=== PATIENT | female | born 1985 | race Caucasian/White ===

== ENCOUNTER 2016-07-28 00:31 | Emergency (ER) | payer BC ==
[2016-07-28] MEDS ORDERED: NS 0.9% 1000 ML* 1,000 ML IV ONE (01:30)
[2016-07-28] MEDS ORDERED: Metoclopramide IV* 5 MG/ML 2 ML VIAL IV SLOW PU ONE (01:30)
[2016-07-28] MEDS ORDERED: Ketorolac INJ* 30 MG/ML 1 ML VIAL IV PUSH ONE (01:32)
--- NOTE | 2016-07-28 01:50 | ED ---
Headache - HPI Summary HPI Summary: 30 female presents complaining of a headache that has been going on for the past week and has progressively been getting worse. Patient was diagnosed with a sinus infection about a week ago and has been taking Augmentin twice a day. She has had some relief of congestion and has no longer had a fever. The headache has not been relieved by Tylenol. She was at work tonight where she was unable to continue her shift due to the pain. She describes the headache to be mainly behind her eyes "like her eyes are going to pop out" and also in the back lower part of her neck. Does not have a history of migraines. Is experiencing photosensitivity. Has been applying ice on her ice and forehead for some relief. Has also been experiencing nausea. Has not vomited however is unable to due to her fundoplication surgery due to GERD. Describes the pain to be throbbing. Denies slurred speech, weakness, numbness/tingling and vision complaints. - History Of Current Complaint Chief Complaint: EDHeadache Stated Complaint: SEVERE HEADACHE Time Seen by Provider: 07/28/16 01:21 Hx Obtained From: Patient Hx Last Menstrual Period: now Onset/Duration: Sudden Onset Currently Pain Is: Current Pain Scale(0-10)= - 7 Timing: Constant, Days Character: Throbbing, Pressure, Migraine Location of Headache: Frontal, Occipital Aggravating Factor: Bright Lights Allevating Factors: Nothing Associated Signs And Symptoms: Nausea, Sinus Pressure, Neck Pain - Allergies/Home Medications Allergies/Adverse Reactions: Allergies Allergy/AdvReac Type Severity Reaction Status Date / Time Gluten Meal Allergy GI Upset Verified 12/16/15 07:28 NSAIDs Allergy GI Upset Verified 12/16/15 07:28 PMH/Surg Hx/FS Hx/Imm Hx Endocrine/Hematology History: Denies: Hx Diabetes Cardiovascular History: Denies: Hx Congestive Heart Failure, Hx Hypertension, Other Cardiovascular Problems/Disorders Respiratory History: Denies: Other Respiratory Problems/Disorders GI History: Reports: Hx Gastroesophageal Reflux Disease - JETHRO, Hx Hiatal Hernia Denies: Other GI Disorders History: Denies: Hx Renal Disease Sensory History: Denies: Hx Contacts or Glasses, Hx Hearing Aid Opthamlomology History: Denies: Hx Contacts or Glasses Neurological History: Denies: Other Neuro Impairments/Disorders - Surgical History Surgery Procedure, Year, and Place: IUD/WRIST CYST REMOVED Hx Anesthesia Reactions: No Infectious Disease History: No Infectious Disease History: Denies: Traveled Outside the [place] in Last 30 Days - Family History Known Family History: Positive: None - Social History Alcohol Use: Occasionally Alcohol Amount: 2-3 PER WEEK Substance Use Type: Reports: None Smoking Status (MU): Never Smoked Tobacco Have You Smoked in the Last Year: No Review of Systems Constitutional: Negative Positive: Photophobia Positive: Nasal Discharge - sinus congestion Cardiovascular: Negative Respiratory: Negative Gastrointestinal: Negative Genitourinary: Negative Musculoskeletal: Negative Skin: Negative Positive: Rash Positive: Headache Positive: Anxious All Other Systems Reviewed And Are Negative: Yes Physical Exam Vital Signs On Initial Exam: Initial Vitals Temp Pulse Resp BP Pulse Ox 99.8 F 81 16 131/93 100 07/28/16 00:35 07/28/16 00:35 07/28/16 00:35 07/28/16 00:35 07/28/16 00:35 Appearance: Positive: Well-Appearing, Well-Nourished, Pain Distress - sitting on stretcher with lights off and icepack held to forehead. Skin: Positive: Warm, Dry Head/Face: Positive: Normal Head/Face Inspection Eyes: Positive: Normal, EOMI, KALEB, Conjunctiva Clear ENT: Positive: Hearing grossly normal, Pharynx normal, Nasal congestion, TMs normal Dental: Negative: Cervical Lymphadenopathy Neck: Positive: Supple, Nontender, No Lymphadenopathy Respiratory/Lung Sounds: Positive: Clear to Auscultation, Breath Sounds Present Cardiovascular: Positive: Normal, RRR, Pulses are Symmetrical in both Upper and Lower Extremities Abdomen Description: Positive: Nontender Musculoskeletal: Positive: Normal, Strength/ROM Intact Neurological: Positive: Normal, Sensory/Motor Intact, Alert, Oriented to Person Place, Time, CN Intact II-III, Reflexes Intact, NV Bundle Intact Distally, Normal Gait, Heel to Toe - normal, Finger to Nose - nomal, Speech Normal. Negative: Facial Droop, Slurred Speech Psychiatric: Positive: Anxious - appears anxious, shaking AVPU Assessment: Alert - [place] Coma Scale Coma Scale Total: 15 Diagnostics - Vital Signs Vital Signs Temp Pulse Resp BP Pulse Ox 07/28/16 00:35 99.8 F 81 16 131/93 100 - Laboratory Lab Statement: Any lab studies that have been ordered have been reviewed, and results considered in the medical decision making process. Headache Course/Dx - Course Course Of Treatment: patient will be given fluids, toradol IV and reglan to see if it helps with migraine. patient's pain improved. told to follow up with primary care doctor. pain management will be sent to take at home for next couple of days. advised to rest and take zofran for nausea as needed. Discussed patient care with Dr Hall, transfer of care. - Diagnoses Differential Diagnosis/HQI/PQRI: Migraine, Sinus Headache, Tension Headache, Viral Syndrome Provider Diagnoses: Migraine headache without aura, Sinus headache - Physician Notifications Discussed Care Of Patient With: Dr Hall Discharge - Discharge Plan Condition: Stable Disposition: HOME Prescriptions: Ondansetron ODT TAB* [Zofran Odt TAB*] 4 mg PO Q8H PRN #5 tab.odt PRN Reason: Nausea Patient Education Materials: Migraine Headache (ED), Sinusitis (ED) Forms: *Work Release Referrals: Vikas Mendiola BOILER ROOM OPERATOR [Primary Care Provider] - Additional Instructions: Take medication as prescribed to help with pain and nausea as needed. IF symptoms worsen or do not improve please return to ED. Follow up with primary care doctor is recommended.
[2016-07-28 05:14] VITALS: BP 120/79
== END 2016-07-28 05:14 | disposition home or self-care (01) ==
LOC: ED 00:31
DX: G43.009 Migraine without aura, not intractable, without status migrainosus (principal)
CPT/HCPCS: 96374; 96375; 99283; J1885; J2765

== ENCOUNTER 2017-04-04 17:10 | Inpatient (IN) | payer BC ==
[2017-04-04] MEDS ORDERED: Aspirin Low Dose CHEW TAB* 81 MG PO ONE (18:56)
--- NOTE | 2017-04-04 19:23 | RAD ---
INDICATION: Chest pain COMPARISON: May 03, 2015 TECHNIQUE: An AP portable view obtained at 1905 hours is submitted. FINDINGS: Bones/Soft Tissues: There are no acute bony findings. Cardiomediastinal: The cardiomediastinal silhouette is normal. Lungs: There are no infiltrates. There is no pneumothorax. Pleura: There are no pleural effusions. Other: None IMPRESSION: NO ACTIVE DISEASE.
[2017-04-04] MEDS ORDERED: Pantoprazole IV* 40 MG IV ONE (19:31)
[2017-04-04] MEDS ORDERED: Ondansetron INJ* 2 MG/ML VIAL IV ONE (19:31)
[2017-04-04] MEDS ORDERED: Morphine INJ* 4 MG/ML 1 ML CARPUJECT IV ONE ×2 (19:31→20:46)
[2017-04-04 19:37] LABS: Comments Flag Yes; Hematocrit 34 % (35-47); Hemoglobin 10.8 g/dl (12.0-16.0); Mean Corpuscular HGB Conc 32 g/dl (31-36); Mean Corpuscular Hemoglobin 23 pg (27-31); Mean Corpuscular Volume 72 fL (80-97); Mean Platelet Volume 8 um3 (7.4-10.4); Red Blood Count 4.68 10^6/ul (4.0-5.4); Red Cell Distribution Width 17 % (10.5-15)
[2017-04-04] MEDS ORDERED: Iodixanol* (CONTRAST) 320 MG/ML 100 ML SDV IV ONE (19:46)
[2017-04-04 19:52] LABS: ALT 9 U/L (7-52); AST 14 U/L (13-39); Albumin 4.3 g/dL (3.2-5.2); Alkaline Phosphatase 32 U/L (34-104); Anion Gap 8 mmol/L (2-11); BUN/Creatinine Ratio 19.3 (8-20); Blood Urea Nitrogen 17 mg/dL (6-24); CO2 Carbon Dioxide 22 mmol/L (22-32); Calcium 9.4 mg/dL (8.6-10.3); Chloride 105 mmol/L (101-111); EGFR African American 95.2 (>60); Globulin 2.9 g/dL (2-4); Glucose 83 mg/dL (70-100); Potassium 3.8 mmol/L (3.5-5.0); Sodium 135 mmol/L (133-145); Total Protein 7.2 g/dL (6.4-8.9)
[2017-04-04 19:54] LABS: Troponin I 0.03 ng/mL (<0.04)
--- NOTE | 2017-04-04 20:14 | RAD ---
INDICATION: 31-year-old with chest pain. COMPARISON: CT chest December 13, 2014; CT abdomen pelvis February 18, 2014 TECHNIQUE: Axial source images were obtained from the thoracic inlet to the symphysis pubis following administration of 100 mL of Visipaque [address] angiographic technique. Coronal and sagittal reconstructed images were acquired. 3-D volume rendered images of the aorta were acquired as well. CHEST FINDINGS: Neck/thyroid: The visualized neck to include the thyroid appear normal. There is a small amount of residual thymic tissue. Chest wall: There are no acute abnormalities of the bony thorax or chest wall. There is no supraclavicular, infraclavicular, or axillary lymphadenopathy. Lungs : There are no pulmonary parenchymal masses or infiltrates. There is no pneumothorax. The pulmonary interstitium appears normal. There are no endobronchial lesions. Cardiomediastinal structures: The heart is normal in size. There is no pericardial effusion. There is no evidence of aortic aneurysm or dissection. The pulmonary vessels appear normal. There is no CT evidence of acute pulmonary embolic disease. There is no mediastinal or hilar adenopathy. The esophagus appears normal. Pleura : There are no pleural-based masses or effusions. ABDOMINAL/PELVIC FINDINGS: Liver: The early arterial phase CT appearance the liver is normal.. Gallbladder: There are no calcified gallstones. There is no evidence of wall thickening or pericholecystic fluid. Spleen: The early arterial phase CT appearance of the spleen is normal. Pancreas: There is no evidence of pancreatic mass or ductal dilatation. Adrenal glands: There is no evidence of adrenal mass. Kidneys: The kidneys are normal in size and position. There are prompt nephrograms and there is prompt excretion bilaterally. There are no new renal parenchymal masses. There are small, bilateral, renal cyst. There is no evidence of nephrolithiasis. Adenopathy: There is no evidence of adenopathy by size criteria. Fluid collections: Small amount of free fluid in the dependent portion of pelvis, likely physiologic free fluid in a young woman. Vessels: The aorta is normal in caliber. There is no evidence of aneurysm or dissection. The iliac vessels are normal as well. The visceral branches arise satisfactorily. There is dual renal arterial supply on the left. GI tract: Noncontrast imaging of the bowel demonstrates no CT head nausea upper lower GI tract. There is no obstruction. The appendix is visualized and is normal. Pelvic organs: The uterus and adnexa appear normal Bladder: There are no bladder masses. Abdominal and pelvic soft tissues: There are surgical clips in left upper quadrant. Osseous structures: There are no acute osseous findings. IMPRESSION: NEGATIVE EXAMINATION. NO CT EVIDENCE OF ANEURYSM, DISSECTION, OR ACUTE PULMONARY EMBOLUS. NO MASS OR INFLAMMATORY CHANGE. SMALL AMOUNT OF CUL-DE-SAC FREE FLUID IS LIKELY PHYSIOLOGIC.
[2017-04-04] MEDS ORDERED: Al Hydrox/Mg Hydrox/Simet LIQ* 30 ML UDC PO ONE (20:45)
[2017-04-04] MEDS ORDERED: Lidocaine 2% VISCOUS* 15 ML UDC PO ONE (20:45)
[2017-04-04] MEDS ORDERED: Sucralfate TAB* 1 GM PO ONE (20:45)
[2017-04-04] MEDS ORDERED: HYDROcodone/ACETAMIN 5-325 MG* 1 TAB PO ONE (20:46)
--- NOTE | 2017-04-04 20:55 | ED ---
Evin Valle Angela, scribed for Starla Mak MD on 04/04/17 at 1837 . HPI Chest Pain - HPI Summary HPI Summary: This pt is a 31 y/o female [facility] c/o chest pain radiating to left arm and mid back today. 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 She states she woke up at 1200 today and after taking a shower she felt a sharp pain in her chest. She notes that initially her chest pain felt like heart burn and indigestion. She reports it was a burning sensation so she took Zantac with no relief. Pt notes her pain began spreading to her left sided jaw. Additional symptoms include heart racing , SOB, and mid back pain. She states her pain is better now, it is waxing and waning. At its worse, the pt notes her pain is described as "someone is squeezing" her chest. PMHx: GERD. Pt takes 40 mg of Protonix every day. FHx: mom of aortic aneurysm at 34 y/o. Her PCP is Dr. Vikas Mendiola. - History of Current Complaint Chief Complaint: EDChestPainROMI Time Seen by Provider: 04/04/17 18:18 Hx Obtained From: Patient Hx Last Menstrual Period: now Onset/Duration: Started Hours Ago Timing: Lasting Hours Current Severity: Moderate Pain Intensity: 4 - waxing and waning Pain Scale Used: 0-10 Numeric Chest Pain Location: Left Anterior Chest Pain Radiates: Yes Chest Pain Radiates To:: Back, Arm - left arm, Jaw - left side Character: Pressure/Squeezing, Sharp/Stabbing Aggravating Factor(s): Nothing Alleviating Factor(s): Nothing Associated Signs and Symptoms: Positive: Chest Pain, Shortness of Breath, Palpitations - heart racing, Other: - mid back pain - Allergy/Home Medications Allergies/Adverse Reactions: Allergies Allergy/AdvReac Type Severity Reaction Status Date / Time Gluten Meal Allergy GI Upset Verified 12/16/15 07:28 NSAIDs Allergy GI Upset Verified 12/16/15 07:28 Home Medications: Home Medications Sertraline* [Zoloft*] 50 mg PO DAILY 04/04/17 [History Confirmed 04/04/17] clonazePAM TAB(*) [KlonoPIN TAB(*)] 0.5 mg PO BEDTIME PRN 04/04/17 [History Confirmed 04/04/17] PMH/Surg Hx/FS Hx/Imm Hx Endocrine/Hematology History: Denies: Hx Diabetes Cardiovascular History: Denies: Hx Congestive Heart Failure, Hx Hypertension, Other Cardiovascular Problems/Disorders Respiratory History: Denies: Other Respiratory Problems/Disorders GI History: Reports: Hx Gastroesophageal Reflux Disease - JETHRO, Hx Hiatal Hernia Denies: Other GI Disorders History: Denies: Hx Renal Disease Sensory History: Denies: Hx Contacts or Glasses, Hx Hearing Aid Opthamlomology History: Denies: Hx Contacts or Glasses Neurological History: Denies: Other Neuro Impairments/Disorders - Surgical History Surgery Procedure, Year, and Place: IUD/WRIST CYST REMOVED Hx Anesthesia Reactions: No Infectious Disease History: No Infectious Disease History: Denies: Traveled Outside the [place] in Last 30 Days - Family History Known Family History: Positive: Cardiac Disease - Mom of aortic aneurysm at 34 y/o. - Social History Lives: With Family - Alcohol Use: Occasionally Alcohol Amount: 2-3 PER WEEK Substance Use Type: Reports: None Smoking Status (MU): Never Smoked Tobacco Have You Smoked in the Last Year: No Review of Systems Negative: Fever, Chills Eyes: Negative Positive: Palpitations - heart racing, Chest Pain Positive: Shortness Of Breath Positive: Other - left arm pain Skin: Negative Neurological: Negative All Other Systems Reviewed And Are Negative: Yes Physical Exam - Summary Physical Exam Summary: General: Well appearing, no pain distress Skin: Warm, Skin Color Reflects Adequate Perfusion. Pt is a little diaphoretic. Eyes: EOMI, KALEB ENT: Pharynx normal, TMs normal Neck: Supple, nontender Respiratory: CTA, breath sounds present, no rhonchi, no wheezes, no rales Cardiovascular: RRR, no murmur, no rub, no gallop Abdomen: Soft, nontender, Non-distended, no guarding, no rebound Bowel: Present Musculoskeletal: KRISTEN, No edema Neuro: Sensory/motor intact, A&Ox3, CN intact 2-12 Psych: Affect/mood appropriate Triage Information Reviewed: Yes Vital Signs On Initial Exam: Initial Vitals Temp Pulse Resp BP Pulse Ox 97 F 143 22 120/67 100 04/04/17 17:13 04/04/17 17:13 04/04/17 17:13 04/04/17 17:13 04/04/17 17:13 Vital Signs Reviewed: Yes - [place] Coma Scale Coma Scale Total: 15 Diagnostics - Vital Signs Vital Signs Temp Pulse Resp BP Pulse Ox 04/04/17 17:13 97 F 143 22 120/67 100 - Laboratory Lab Results: Lab Results 04/04/17 04/04/17 Range/Units 19:28 19:28 WBC 7.0 (3.5-10.8) 10^3/ul RBC 4.68 (4.0-5.4) 10^6/ul Hgb 10.8 L (12.0-16.0) g/dl Hct 34 L (35-47) % MCV 72 L (80-97) fL MCH 23 L (27-31) pg MCHC 32 (31-36) g/dl RDW 17 H (10.5-15) % Plt Count 321 (150-450) 10^3/ul MPV 8 (7.4-10.4) um3 Neut % (Auto) 53.7 (38-83) % Lymph % (Auto) 39.0 (25-47) % Pershing % (Auto) 6.4 (1-9) % Eos % (Auto) 0.2 (0-6) % Baso % (Auto) 0.7 (0-2) % Absolute Neuts (auto) 3.7 (1.5-7.7) 10^3/ul Absolute Lymphs (auto) 2.7 (1.0-4.8) 10^3/ul Absolute Monos (auto) 0.4 (0-0.8) 10^3/ul Absolute Eos (auto) 0 (0-0.6) 10^3/ul Absolute Basos (auto) 0 (0-0.2) 10^3/ul Absolute Nucleated RBC 0 10^3/ul Nucleated RBC % 0 Sodium 135 (133-145) mmol/L Potassium 3.8 (3.5-5.0) mmol/L Chloride 105 (101-111) mmol/L Carbon Dioxide 22 (22-32) mmol/L Anion Gap 8 (2-11) mmol/L BUN 17 (6-24) mg/dL Creatinine 0.88 (0.51-0.95) mg/dL Est GFR ( Amer) 95.2 (>60) Est GFR (Non-Af Amer) 74.0 (>60) BUN/Creatinine Ratio 19.3 (8-20) Glucose 83 (70-100) mg/dL Calcium 9.4 (8.6-10.3) mg/dL Total Bilirubin 0.30 (0.2-1.0) mg/dL AST 14 (13-39) U/L ALT 9 (7-52) U/L Alkaline Phosphatase 32 L (34-104) U/L Troponin I 0.03 (<0.04) ng/mL Total Protein 7.2 (6.4-8.9) g/dL Albumin 4.3 (3.2-5.2) g/dL Globulin 2.9 (2-4) g/dL Albumin/Globulin Ratio 1.5 (1-3) Beta HCG, Quant < 0.60 mIU/mL Result Diagrams: 04/04/17 19:28 04/04/17 19:28 Lab Statement: Any lab studies that have been ordered have been reviewed, and results considered in the medical decision making process. - Radiology Chest XR Xray Interpretation: No Acute Changes - IMPRESSION: No active disease. ED physician has reviewed this radiology report and agrees. Radiology Interpretation Completed By: Radiologist - CT CTA chest/abd/pelvis CT Interpretation: No Acute Changes - IMPRESSION: Negative examination. No CT evidence of aneurysm, dissection, or acute pulmonary embolus. No mass or inflammatory change. Small amount of cul-de-sac free fluid is likely physiologic. ED physician has reviewed this radiology report and agrees. CT Interpretation Completed By: Radiologist - EKG 1722 Cardiac Rate: NL - 68 bpm EKG Rhythm: Sinus Rhythm Chest Pain Course/Dx - Course Course Of Treatment: 31 yo female with family hx of dissection and personal history of berto fundiplication who bent over in the shower at 4pm with sudden onset of chest pain radiating to back. cta chest/abd/pelvis was neg pt will get a 6 hour trop (no cardiac risk factors ) and if neg will be sent home on carafate which has helped in the past - Diagnoses Provider Diagnoses: Esophagitis, Chest pain Discharge - Discharge Plan Condition: Stable Disposition: HOME Prescriptions: HYDROcodone/ACETAMIN 5-325 MG* [[place] 5-325 TAB*] 1 tab PO Q8H PRN #9 tab MDD 3 PRN Reason: Pain Sucralfate SUSP (NF) [Carafate SUSP (NF)] 10 ml PO Q6HR PRN #120 ml PRN Reason: Pain Referrals: Vikas Mendiola, [employer] UP OPERATOR [facility] [Primary Care Provider] - Additional Instructions: Please follow up with your primary care provider. RETURN TO THE ED FOR ANY WORSENING SYMPTOMS. The documentation as recorded by the Evin pagan Angela accurately reflects the service I personally performed and the decisions made by , Starla Mak MD.
[2017-04-04] MEDS ORDERED: Nitroglycerin TAB 0.3 MG* 0.3 MG TAB SL ONE (23:10)
[2017-04-04] MEDS ORDERED: Nitroglycerin TAB 0.4 MG* 0.4 MG TAB ONE (23:17)
[2017-04-04] MEDS ORDERED: Acetaminophen TAB* 325 MG PO PRN (23:42)
[2017-04-04] MEDS ORDERED: Melatonin (NF) 3 MG TAB PO PRN (23:43)
[2017-04-04] MEDS ORDERED: Ondansetron INJ* 2 MG/ML VIAL IV PRN (23:45)
[2017-04-04] MEDS ORDERED: Heparin VIAL(*) 5000 UNITS/ML VIAL (FIVE THOUSAND) IV SCH (23:45)
[2017-04-04] MEDS ORDERED: NS 0.9% 1000 ML* 1,000 ML IV SCH (23:45)
[2017-04-04] MEDS ORDERED: Heparin DRIP 25,000 UNITS(*) 25,000 UNITS/500 ML BAG IVPB SCH (23:45)
[2017-04-05] MEDS ORDERED: Ticagrelor* 90 MG TAB PO ONE (00:08)
[2017-04-05 00:11] LABS: Hematocrit 34 % (35-47); Hemoglobin 10.9 g/dl (12.0-16.0); Mean Corpuscular HGB Conc 32 g/dl (31-36); Mean Corpuscular Hemoglobin 23 pg (27-31); Mean Platelet Volume 8 um3 (7.4-10.4); Red Blood Count 4.79 10^6/ul (4.0-5.4); Red Cell Distribution Width 16 % (10.5-15); White Blood Count 6.8 10^3/ul (3.5-10.8)
[2017-04-05] MEDS: clonazePAM TAB(*) 0.5 MG PO PRN ×2 (00:20→22:15)
[2017-04-05 00:32] LABS: Comments Flag Yes; Mean Corpuscular Volume 72 fL (80-97)
[2017-04-05 00:53] LABS: Urine Bacteria Absent (Absent); Urine Bilirubin Negative (Negative); Urine Glucose Negative (Negative); Urine Nitrite Negative (Negative)
[2017-04-05 00:58] LABS: Benzodiazepine Urine Screen None Detected (None Detect)
--- NOTE | 2017-04-05 01:13 | HP ---
H&P (Free Text) History and Physical: PCP: Steve Mendiola NP Date/Time: 04/04/2017 2340 CC: chest pain HPI: Mrs Mendez is a 31YO female HX GERD whose mother passed at 34 of a AAA reporting onset of inferior substernal chest pressure around 1600 that initially radiated radially through the rest of the chest and upper abdomen. She took some ranitidine which did not help. In fact after taking, the chest pain became much stronger with a "crushing/squeezing" character radiating up into the L jaw and down the L arm. She had profuse diaphoresis, palpitations, and light-headedness, but no SOB or N/V. This persisted for ~3hours until becoming concerning enough for her to present for evaluation. Upon arrival to the ED she was given 324mg aspirin to chew, nitro, & morphine without any improvement. She relates the pain just gradually subsided. At this time, she denies any symptomotology. 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 Father passed at 38 of multiple myeloma. Only sibling, a sister, is healthy. ROS: as above, otherwise reviewed and all were negative vitals: Vital Signs Temp 36.1 C 04/04/17 17:13 Pulse 57 04/04/17 22:00 Resp 14 04/04/17 22:00 BP 106/80 04/04/17 22:00 Pulse Ox 99 04/04/17 22:00 Intake & Output 04/04/17 04/04/17 04/05/17 11:59 23:59 11:59 Weight 63.503 kg Constitutional: NAD, normally developed, well-nourished white female HEENM: atraumatic; sclera/conjunctiva: non-icteric/clear; hearing: clinically intact; oropharynx: clear, mucosa moist Neck: soft tissue: non-tender; thyroid: normal Pulmonary: clear to auscultation bilaterally, good aeration, no accessory muscle use CV: RR/RR, normal S1S2, no carotid bruit, no jugular venous distention, 2+ B DP/ PT, no edema Abdominal: soft, non-distended, non-tender, no rebound/guarding/rigidity, normoactive bowel sounds, no hepatosplenomegaly or masses, no costovertebral angle tenderness Musculoskeletal: general: grossly intact; gait: stable Integumental: normal appearance and texture of exposed skin Psychiatric orientation: AA&O to PPS affect: calm mood: cooperative, pleasant eye contact: good content: reliable responses: timely insight: good Testing: Lab Results 04/04/17 04/04/17 04/04/17 Range/Units 19:28 19:28 22:18 WBC 7.0 (3.5-10.8) 10^3/ul RBC 4.68 (4.0-5.4) 10^6/ul Hgb 10.8 L (12.0-16.0) g/dl Hct 34 L (35-47) % MCV 72 L (80-97) fL MCH 23 L (27-31) pg MCHC 32 (31-36) g/dl RDW 17 H (10.5-15) % Plt Count 321 (150-450) 10^3/ul MPV 8 (7.4-10.4) um3 Neut % (Auto) 53.7 (38-83) % Lymph % (Auto) 39.0 (25-47) % [place] % (Auto) 6.4 (1-9) % Eos % (Auto) 0.2 (0-6) % Baso % (Auto) 0.7 (0-2) % Absolute Neuts (auto) 3.7 (1.5-7.7) 10^3/ul Absolute Lymphs (auto) 2.7 (1.0-4.8) 10^3/ul Absolute Monos (auto) 0.4 (0-0.8) 10^3/ul Absolute Eos (auto) 0 (0-0.6) 10^3/ul Absolute Basos (auto) 0 (0-0.2) 10^3/ul Absolute Nucleated RBC 0 10^3/ul Nucleated RBC % 0 APTT (26.0-36.3) seconds Sodium 135 (133-145) mmol/L Potassium 3.8 (3.5-5.0) mmol/L Chloride 105 (101-111) mmol/L Carbon Dioxide 22 (22-32) mmol/L Anion Gap 8 (2-11) mmol/L BUN 17 (6-24) mg/dL Creatinine 0.88 (0.51-0.95) mg/dL Est GFR ( Amer) 95.2 (>60) Est GFR (Non-Af Amer) 74.0 (>60) BUN/Creatinine Ratio 19.3 (8-20) Glucose 83 (70-100) mg/dL Calcium 9.4 (8.6-10.3) mg/dL Magnesium 2.0 (1.9-2.7) mg/dL Total Bilirubin 0.30 (0.2-1.0) mg/dL AST 14 (13-39) U/L ALT 9 (7-52) U/L Alkaline Phosphatase 32 L (34-104) U/L Troponin I 0.03 0.18 H* (<0.04) ng/mL Total Protein 7.2 (6.4-8.9) g/dL Albumin 4.3 (3.2-5.2) g/dL Globulin 2.9 (2-4) g/dL Albumin/Globulin Ratio 1.5 (1-3) TSH Pending Beta HCG, Quant < 0.60 mIU/mL Urine Color Urine Appearance Urine pH (5-9) Ur Specific [place] (1.010-1.030) Urine Protein (Negative) Urine Ketones (Negative) Urine Blood (Negative) Urine Nitrate (Negative) Urine Bilirubin (Negative) Urine Urobilinogen (Negative) Ur Leukocyte Esterase (Negative) Urine WBC (Auto) (Absent) Urine RBC (Auto) (Absent) Ur Squamous Epith Cells (Absent) Urine Bacteria (Absent) Urine Glucose (Negative) Urine Opiates Screen (None Detect) Ur Barbiturates Screen (None Detect) Ur Phencyclidine Scrn (None Detect) Ur Amphetamines Screen (None Detect) U Benzodiazepines Scrn (None Detect) Urine Cocaine Screen (None Detect) U Cannabinoids Screen (None Detect) 04/04/17 04/04/17 04/04/17 Range/Units 23:07 23:56 23:56 WBC (3.5-10.8) 10^3/ul RBC (4.0-5.4) 10^6/ul Hgb (12.0-16.0) g/dl Hct (35-47) % MCV (80-97) fL MCH (27-31) pg MCHC (31-36) g/dl RDW (10.5-15) % Plt Count (150-450) 10^3/ul MPV (7.4-10.4) um3 Neut % (Auto) (38-83) % Lymph % (Auto) (25-47) % Canadian % (Auto) (1-9) % Eos % (Auto) (0-6) % Baso % (Auto) (0-2) % Absolute Neuts (auto) (1.5-7.7) 10^3/ul Absolute Lymphs (auto) (1.0-4.8) 10^3/ul Absolute Monos (auto) (0-0.8) 10^3/ul Absolute Eos (auto) (0-0.6) 10^3/ul Absolute Basos (auto) (0-0.2) 10^3/ul Absolute Nucleated RBC 10^3/ul Nucleated RBC % APTT 26.6 (26.0-36.3) seconds Sodium (133-145) mmol/L Potassium (3.5-5.0) mmol/L Chloride (101-111) mmol/L Carbon Dioxide (22-32) mmol/L Anion Gap (2-11) mmol/L BUN 15 (6-24) mg/dL Creatinine (0.51-0.95) mg/dL Est GFR ( Amer) (>60) Est GFR (Non-Af Amer) (>60) BUN/Creatinine Ratio (8-20) Glucose (70-100) mg/dL Calcium (8.6-10.3) mg/dL Magnesium (1.9-2.7) mg/dL Total Bilirubin (0.2-1.0) mg/dL AST (13-39) U/L ALT (7-52) U/L Alkaline Phosphatase (34-104) U/L Troponin I 0.25 H* (<0.04) ng/mL Total Protein (6.4-8.9) g/dL Albumin (3.2-5.2) g/dL Globulin (2-4) g/dL Albumin/Globulin Ratio (1-3) TSH Beta HCG, Quant mIU/mL Urine Color Urine Appearance Urine pH (5-9) Ur Specific [place] (1.010-1.030) Urine Protein (Negative) Urine Ketones (Negative) Urine Blood (Negative) Urine Nitrate (Negative) Urine Bilirubin (Negative) Urine Urobilinogen (Negative) Ur Leukocyte Esterase (Negative) Urine WBC (Auto) (Absent) Urine RBC (Auto) (Absent) Ur Squamous Epith Cells (Absent) Urine Bacteria (Absent) Urine Glucose (Negative) Urine Opiates Screen (None Detect) Ur Barbiturates Screen (None Detect) Ur Phencyclidine Scrn (None Detect) Ur Amphetamines Screen (None Detect) U Benzodiazepines Scrn (None Detect) Urine Cocaine Screen (None Detect) U Cannabinoids Screen (None Detect) 04/04/17 04/05/17 04/05/17 Range/Units 23:56 00:15 00:15 WBC 6.8 (3.5-10.8) 10^3/ul RBC 4.79 (4.0-5.4) 10^6/ul Hgb 10.9 L (12.0-16.0) g/dl Hct 34 L (35-47) % MCV 72 L (80-97) fL MCH 23 L (27-31) pg MCHC 32 (31-36) g/dl RDW 16 H (10.5-15) % Plt Count 310 (150-450) 10^3/ul MPV 8 (7.4-10.4) um3 Neut % (Auto) 38.6 (38-83) % Lymph % (Auto) 52.5 H (25-47) % Canadian % (Auto) 8.0 (1-9) % Eos % (Auto) 0.2 (0-6) % Baso % (Auto) 0.7 (0-2) % Absolute Neuts (auto) 2.6 (1.5-7.7) 10^3/ul Absolute Lymphs (auto) 3.6 (1.0-4.8) 10^3/ul Absolute Monos (auto) 0.6 (0-0.8) 10^3/ul Absolute Eos (auto) 0 (0-0.6) 10^3/ul Absolute Basos (auto) 0.1 (0-0.2) 10^3/ul Absolute Nucleated RBC 0 10^3/ul Nucleated RBC % 0.1 APTT (26.0-36.3) seconds Sodium (133-145) mmol/L Potassium (3.5-5.0) mmol/L Chloride (101-111) mmol/L Carbon Dioxide (22-32) mmol/L Anion Gap (2-11) mmol/L BUN (6-24) mg/dL Creatinine (0.51-0.95) mg/dL Est GFR ( Amer) (>60) Est GFR (Non-Af Amer) (>60) BUN/Creatinine Ratio (8-20) Glucose (70-100) mg/dL Calcium (8.6-10.3) mg/dL Magnesium (1.9-2.7) mg/dL Total Bilirubin (0.2-1.0) mg/dL AST (13-39) U/L ALT (7-52) U/L Alkaline Phosphatase (34-104) U/L Troponin I (<0.04) ng/mL Total Protein (6.4-8.9) g/dL Albumin (3.2-5.2) g/dL Globulin (2-4) g/dL Albumin/Globulin Ratio (1-3) TSH Beta HCG, Quant mIU/mL Urine Color Yellow Urine Appearance Clear Urine pH 6.0 (5-9) Ur Specific [place] > 1.060 H (1.010-1.030) Urine Protein Negative (Negative) Urine Ketones 1+ H (Negative) Urine Blood 1+ H (Negative) Urine Nitrate Negative (Negative) Urine Bilirubin Negative (Negative) Urine Urobilinogen Negative (Negative) Ur Leukocyte Esterase Negative (Negative) Urine WBC (Auto) Absent (Absent) Urine RBC (Auto) Trace(0-2/hpf) (Absent) Ur Squamous Epith Cells Present H (Absent) Urine Bacteria Absent (Absent) Urine Glucose Negative (Negative) Urine Opiates Screen Presumptive positive H (None Detect) Ur Barbiturates Screen None detected (None Detect) Ur Phencyclidine Scrn None detected (None Detect) Ur Amphetamines Screen None detected (None Detect) U Benzodiazepines Scrn None detected (None Detect) Urine Cocaine Screen None detected (None Detect) U Cannabinoids Screen None detected (None Detect) ECG, personally reviewed: NSR rate 68, subtle non-diagnostic ST elevation in II/ III/AVF new compared to CXR, personally reviewed: IMPRESSION: NO ACTIVE DISEASE. CTA chest/abd/pel, personally reviewed: IMPRESSION: NEGATIVE EXAMINATION. NO CT EVIDENCE OF ANEURYSM, DISSECTION, OR ACUTE PULMONARY EMBOLUS. NO MASS OR INFLAMMATORY CHANGE. SMALL AMOUNT OF CUL-DE-SAC FREE FLUID IS LIKELY PHYSIOLOGIC. Impression: 31F presenting with NSTEMI DIAGNOSIS & PLAN Primary NSTEMI : aspirin : ticagrelor : heparin GTT : hold beta franca 2nd bradycardia : supplemental oxygen : telemetry : ICU monitoring : trend troponin : ECHO in AM : Josr Gonzalez MD cardiology consulted by Dr Nani MD ED; will evaluate in AM : supportive care Secondary GERD : continue pantoprazole & ranitidine anxiety : continue sertraline & clonazepam Admission Rational: inpatient for evaluation of NSTEMI; inappropriate for outpatient setting DVTp: heparin SQ Code Status: full HCP:
[2017-04-05] MEDS ORDERED: LORazepam INJ* 2 MG/ML 1 ML VIAL IV ONE (01:41)
[2017-04-05 01:48] LABS: TSH (Thyroid Stimulating Horm) 0.69 mcIU/mL (0.34-5.60)
[2017-04-05] MEDS ORDERED: LORazepam INJ* 2 MG/ML 1 ML VIAL ONE (02:25)
[2017-04-05 04:54] LABS: Troponin I 0.58 ng/mL (<0.04)
[2017-04-05 05:34] LABS: Hematocrit 32 % (35-47); Hemoglobin 10.4 g/dl (12.0-16.0); Mean Corpuscular HGB Conc 32 g/dl (31-36); Mean Corpuscular Hemoglobin 23 pg (27-31); Mean Platelet Volume 8 um3 (7.4-10.4); Red Blood Count 4.49 10^6/ul (4.0-5.4); Red Cell Distribution Width 16 % (10.5-15); White Blood Count 5.7 10^3/ul (3.5-10.8)
[2017-04-05 05:35] LABS: Comments Flag Yes
[2017-04-05 05:36] LABS: Mean Corpuscular Volume 71 fL (80-97)
[2017-04-05 05:49] LABS: Blood Urea Nitrogen 13 mg/dL (6-24)
[2017-04-05 05:58] LABS: Troponin I 0.98 ng/mL (<0.04)
[2017-04-05] MEDS ORDERED: Omeprazole CAP* 20 MG PO SCH (06:00)
[2017-04-05 06:23] LABS: TSH (Thyroid Stimulating Horm) 2.35 mcIU/mL (0.34-5.60)
[2017-04-05 08:36] LABS: C Reactive Protein < 1.00 mg/L (< 5.00)
--- NOTE | 2017-04-05 08:55 | PN ---
Subjective Date of Service: 04/05/17 Interval History: This is a 31 yo female who is otherwise healthy but has a family history of her mother passing of a ruptured AAA in her mid 30s who presented with c/o CP. She had an elevated troponin and subtle EKG changes so was subsequently admitted as a NSTEMI. CTA neg for PE and dissection. She had several long runs of PVCs overnight which have subsided this am. She gives a h/o a recent viral respiratory infection that consisted of hoarseness and cough that lasted ~10d and resolved just a couple of days ago. This morning she reports no recurrence of the same pain that brought her in, but gets occasional "twinges" of chest pain. Objective Active Medications: Acetaminophen (Tylenol Tab*) 650 mg PO Q6H PRN PRN Reason: FEVER/PAIN Aspirin (Aspirin Ec Low Dose*) 81 mg PO DAILY KALLIE Clonazepam (Klonopin Tab(*)) 0.5 mg PO BEDTIME PRN PRN Reason: ANXIETY Last Admin: 04/05/17 00:20 Dose: 0.5 mg Heparin Sodium (Porcine) (Heparin Vial(*)) 0 units IV .PER PROTOCOL KALLIE PRN Reason: Protocol Last Admin: 04/05/17 01:05 Dose: 4,700 units Heparin Sodium/Dextrose (Heparin Drip 25,000 Units(*)) 25,000 units in 500 mls @ 0 mls/hr IVPB .PER RATE KALLIE; Per Protocol PRN Reason: Protocol Last Admin: 04/05/17 01:04 Dose: 18 mls/hr Sodium Chloride (Ns 0.9% 1000 Ml*) 1,000 mls @ 75 mls/hr IV PER RATE [facility] Last Admin: 04/05/17 00:57 Dose: 75 mls/hr Melatonin (Melatonin (Nf)) 3 mg PO BEDTIME PRN; Protocol PRN Reason: Sleep Omeprazole (Prilosec Cap*) 20 mg PO DAILY KALLIE Ondansetron HCl (Zofran Inj*) 4 mg IV Q6H PRN PRN Reason: NAUSEA Sertraline HCl (Zoloft*) 50 mg PO DAILY [facility] Vital Signs: Temp Pulse Resp BP Pulse Ox 99.6 F 63 15 111/74 100 04/05/17 07:43 04/05/17 00:59 04/05/17 06:00 04/05/17 06:00 04/05/17 06:00 Oxygen Devices in Use Now: Nasal Cannula Appearance: Well appearing young female in NAD Respiratory: Symmetrical Chest Expansion and Respiratory Effort, Clear to Auscultation Cardiovascular: NL Sounds; No Murmurs; No JVD, RRR Abdominal: NL Sounds; No Tenderness; No Distention Extremities: No Edema Skin: No Rash or Ulcers Neurological: Alert and Oriented x 3 Result Diagrams: 04/05/17 05:24 04/05/17 05:24 Additional Lab and Data: Laboratory Tests 04/04/17 04/04/17 04/04/17 19:28 22:18 23:07 Troponin I 0.03 0.18 H* 0.25 H* 04/05/17 04/05/17 01:35 05:24 Troponin I 0.58 H* 0.98 H* Microbiology and Other Data: Microbiology 04/05/17 01:00 Nasal Screen MRSA (PCR)(DANELLE) - Final Nasal Mrsa Negative Diagnostic Imaging: CTA chest/abd/pelvis - no PE or dissection Assess/Plan/Problems-Billing Assessment: This is a 31 yo female who is healthy apart from GERD and mild anxiety who presented with c/o CP with subtle EKG changes and elevated troponin. Her mother in her mid 30s of a AAA. She was admitted as a NSTEMI - Patient Problems (1) NSTEMI (non-ST elevated myocardial infarction) Comment: Currently on a heparin drip, loaded with Brilinta and ASA BB held as she is borderline bradycardic Now CP free She had significant cardiac irritability overnight, now resolved Electrolytes WNL Consider pericarditis as a possible alternate etiology, but CRP is <1 Echo pend Cardiology consult pending (2) Microcytic anemia Comment: This appears to be chronic MCV in the 70s Assume iron deficiency, perhaps related to menstrual bleeding Do not believe this is related to her acute presentation, but she should have iron studies if not previously completed and maybe started on supplementation (3) GERD (gastroesophageal reflux disease) (4) Anxiety (5) Full code status (6) DVT prophylaxis Comment: Heparing drip Status and Disposition: Inpatient. Pending echo and cardiac consultation.
[2017-04-05] MEDS: Omeprazole CAP* 20 MG PO SCH (09:03)
[2017-04-05] MEDS: Sertraline* 50 MG TAB PO SCH ×2 (09:03→09:10)
[2017-04-05] MEDS: Aspirin EC Low Dose* 81 MG TAB.EC PO SCH (09:03)
[2017-04-05 09:14] LABS: Erythrocyte Sed Rate 8 mm/Hr (0-14)
--- NOTE | 2017-04-05 09:16 | ECHO ---
Patient: LUISANA HARDY [facility] Rec#: [id number] : 1985 Date: 04/05/2017 Age: 31y Height: 175.26 cm / 69.0 in Weight: 63.5 kg / 140.0 lbs Sex: F BSA: 1.78 Room#: [facility] Admit Date#: 04/04/2017 Type: Inpatient Referring: Darryn Hawk MD Reading: Boaz Elkins MD Help Desk Technician: Cierra Campos RDCS CC: Vikas Mendiola, HAILE Transthoracic Echocardiogram Indication: NSTEMI BP: 111/74 HR: 76 Rhythm: NSR Findings History: GERD, anxiety, family history of AAA rupture. Technical Comments: The study quality is good. Completed at 0825. Left Ventricle: The left ventricular chamber size is normal. There is no left ventricular hypertrophy. Global left ventricular wall motion and contractility are within normal limits. Left ventricular systolic function is at the lower limits of normal. The estimated ejection fraction is 50-55%. closer to 55%. Subtle area of hypokinesis at the extreme base of the inferior wall, possible normal variant vs focal abnormality. Normal left ventricular diastolic filling is observed. The basal inferior wall segment is hypokinetic (score 2). Overall wallmotion score index is 1.06 Left Atrium: The left atrium is mildly dilated. Right Ventricle: The right ventricular cavity size is normal. The right ventricular global systolic function is normal. Right Atrium: The right atrial cavity size is normal. Aortic Valve: The aortic valve is trileaflet. There is no evidence of aortic regurgitation. There is no evidence of aortic stenosis. Mitral Valve: The mitral valve leaflets are mildly thickened. There is trace to mild mitral regurgitation. There is no evidence of mitral stenosis. Tricuspid Valve: The tricuspid valve leaflets are normal. There is a physiologic tricuspid regurgitation. The right ventricular systolic pressure is estimated at 27 mmHg. No pulmonary hypertension is noted. There is no tricuspid stenosis. Pulmonic Valve: The pulmonic valve appears normal. There is mild pulmonic regurgitation. There is no pulmonic stenosis. Pericardium: There is no significant pericardial effusion. Aorta: There is no dilatation of the ascending aorta. There is no dilatation of the aortic arch. The aortic root is normal in size. Pulmonary Artery: The main pulmonary artery appears normal. Venous: The inferior vena cava is dilated. There is an approximate 50% respiratory change in the inferior vena cava dimension. Summary: There was not any prior study for comparison. Conclusions Left ventricular systolic function is at the lower limits of normal. The estimated ejection fraction is 50-55%. closer to 55%. Subtle area of hypokinesis at the extreme base of the inferior wall, possible normal variant vs focal abnormality. There is trace to mild mitral regurgitation. There is a physiologic tricuspid regurgitation. There is mild pulmonic regurgitation. Measurements Name Value Normal Range RVIDd (AP) 2D 2.4 cm (0.9 - 2.6) RVDdMajor (2D) 4.1 cm (2.2 - 4.4) RAd ISD 4CH 4.6 cm (3.4 - 4.9) RA (A4C)W 3.3 cm (2.9 - 4.6) IVSd (2D) 0.8 cm (0.6 - 1) LVPWd (2D) 0.8 cm (0.6 - 1) LVIDd (2D) 4.6 cm (3.6 - 5.4) LVIDs (2D) 3.6 cm - LV FS (2D) 22 % (25 - 45) Aortic Annulus 2.1 cm (1.4 - 2.6) Ao root diameter (2D) 3.4 cm (2.1 - 3.5) Ascending Ao 3.3 cm (2.1 - 3.4) Aortic arch 2.1 cm (1.8 - 3.4) Descending Ao 2.9 cm - LAd ISD 4CH 4.1 cm (2.9 - 5.3) LA ISD 4CH W 4.1 cm (2.5 - 4.5) Name Value Normal Range LA ESV SP 4CH (A/L) 47 ml - LA ESV SP 2CH (A/L) 60 ml - LA ESV BP (A/L) 64 ml - LA ESV BP (A/L) index 35.75 ml/m2 - LA ESV SP 4CH (MOD) 37 ml - LA ESV SP 2CH (MOD) 58 ml - Name Value Normal Range MV E-wave Vmax 0.71 m/sec - MV deceleration time 241.3 msec - MV A-wave Vmax 0.43 m/sec - MV E:A ratio 1.66 ratio - LV septal e' Vmax 0.11 m/sec - LV lateral e' Vmax 0.12 m/sec - LV E:e' septal ratio 6.45 ratio - LV E:e' lateral ratio 5.92 ratio - Name Value Normal Range AV Vmax 1.1 m/sec - AV VTI 23.57 cm - AV peak gradient 4.8 mmHg - AV mean gradient 2.72 mmHg - LVOT Vmax 0.9 m/sec - LVOT VTI 20.8 cm - LVOT peak gradient 3.3 mmHg - LVOT mean gradient 2 mmHg - MARLEY Vmax 1 m/sec - Name Value Normal Range TR Vmax 1.7 m/sec - TR peak gradient 12 mmHg - RAP 15 mmHg - RVSP 27 mmHg - IVC diameter 2.3 cm - Name Value Normal Range PV Vmax 0.74 m/sec - PV peak gradient 2.23 mmHg - Wallmotion BAS Normal BA Normal BAL Normal KELSIE Normal BI Hypokinetic BIS Normal MAS Normal MA Normal MAL Normal MIL Normal LA Normal MIS Normal Normal AA Normal AL Normal AI Normal APEX Normal
[2017-04-05 10:11] LABS: Troponin I 0.76 ng/mL (<0.04)
[2017-04-05] MEDS ORDERED: diPHENhydraMINE PO* 50 MG PO ONE (10:37)
[2017-04-05] MEDS ORDERED: Diazepam TAB(*) 5 MG PO ONE (10:37)
[2017-04-05] MEDS ORDERED: NS 0.9% 1000 ML* 1,000 ML IV SCH ×2 (10:45→13:45)
[2017-04-05 11:17] LABS: HDL Cholesterol 63.1 mg/dL
[2017-04-05] MEDS ORDERED: Iohexol 350 (CONTRAST) 200 ML MDV IV ONE ×2 (12:32→12:41)
[2017-04-05] MEDS ORDERED: Heparin 2 UNITS/ML IVPREMIX* 0 ML IV ONE (12:32)
[2017-04-05] MEDS ORDERED: Lidocaine 1% INJ* 10 MG/ML 30 ML SDV ONE ×2 (12:32→12:41)
[2017-04-05] MEDS ORDERED: fentaNYL* 50 MCG/ML 2 ML VIAL (100 MCG VIAL) ONE ×2 (12:40→13:23)
[2017-04-05] MEDS ORDERED: Heparin(*) 1000 UNIT/ML 10 ML VIAL CATH LAB IV ONE (12:41)
[2017-04-05] MEDS ORDERED: Midazolam* 1 MG/ML 5 ML VIAL (5 MG) ONE (12:41)
[2017-04-05] MEDS ORDERED: VERAPAMIL 2.5 MG/ML 4 ML VIAL ONE (12:41)
[2017-04-05] MEDS ORDERED: Heparin 2 UNITS/ML IVPREMIX* 3,000 ML IV ONE (12:41)
[2017-04-05] MEDS ORDERED: nitroGLYCERIN DRIP* 250 ML ONE (12:41)
--- NOTE | 2017-04-05 13:21 | CONS ---
CARDIOLOGY CONSULTATION REPORT: DATE OF CONSULT: CONSULTING PROVIDER: HEATHER Orourke REASON FOR EVALUATION: Non-ST elevation DC. HISTORY OF PRESENT ILLNESS: This is a very pleasant 31-year-old female, who has no significant past cardiac history. She was in her usual state of health until yesterday when she was in the shower at about 4 p.m. noted squeezing, substernal chest pain associated with some radiation to both sides of her anterior chest. She left the shower and she said the pain worsened and radiated to her left jaw, left shoulder, and left arm. It was also associated with diaphoresis. She said that at first she thought it might be her indigestion acting up and she took an antacid, but it did not improve. There was no change with position. She also became anxious and noted that she had a little bit shortness of breath but she thinks it was related to her apprehension. She waited about an hour but her symptoms persisted and she went to the emergency room. There, she had an evaluation and no diagnostic EKG changes. She has a family history of mother, who at 34 of an abdominal aortic aneurysm and because of the concern, she had a CT angio that revealed no evidence of dissection, pulmonary embolism, or aortic aneurysm. Her initial troponin came back at 0.03 at 1928, second troponin at 8 came back at 0.18, and it was decided to keep her. Her subsequent troponin was increased to 0.58 at 1:35 a.m. today and 0.98 at 5:24 this morning. She said that her pain resolved at approximately 10:30 when she was moved upstairs. However, she noticed frequent PVCs after that, which were disconcerting to her, they persisted for a while and resolved this morning. She said she has had no PVCs and no squeezing chest pain, but she has a twinge of intermittent squeezing in her left axillary area, which is not positional. She denies any shortness of breath or diaphoresis at present. She denies tobacco use. She states she uses rare marijuana and did use rare cocaine. She said she has not used it for many months, but used it Saturday night, but had no chest pain at that time. She denies hypertension, diabetes, hyperlipidemia. No fever, chills, or sweats. She said about a month ago, she had a productive cough that resolved, but no fevers. She denies diarrhea, hematemesis, or hematochezia. PAST MEDICAL HISTORY: Includes severe gastroesophageal reflux. PAST SURGICAL HISTORY: Includes Ruth fundoplication as well as tubal ligation in 2016. She is , accompanied by her , Paresh. 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 She has approximately 2 glasses of wine a couple of times a month. Denies tobacco use. Has 2 glasses of coffee a day. MEDICATIONS: As an outpatient include: 1. Klonopin 0.5 mg at bedtime p.r.n. 2. Zoloft 50 mg a day. 3. Protonix 40 mg a day. 4. Carafate 10 mg q.6 p.r.n. 5. Narco 1 tab q.8 p.r.n. As an inpatient she is on: 1. Aspirin 81 mg a day. 2. Acetaminophen p.r.n. 3. Klonopin 0.5 mg at bedtime p.r.n. 4. IV heparin. 5. Melatonin 3 mg at bedtime p.r.n. 6. Omeprazole 20 mg daily. 7. Zofran 4 mg IV q.6 p.r.n. 8. Sertraline/Zoloft 50 mg daily. 9. Sodium chloride 75 cc an hour. ALLERGIES: Include NSAIDs, which cause GI upset and GLUTEN which causes GI upset. FAMILY HISTORY: Includes mother who of aortic aneurysm at 34 and father at 38 of multiple myeloma. She denies bleeding problems. She has a sister who is alive, but has Raynaud's. There is no family history of premature coronary disease or other connective tissue disorders. She has 2 children and she reports that she had them seen at the [facility] in [place] and they were not told to have Marfan's. She has not been checked yet. REVIEW OF SYSTEMS: Review of systems x10 was negative except as above. PHYSICAL EXAM: She is a well-developed, well-nourished female, in no apparent distress. Blood pressure 111/74, pulse of 62, O2 sat is 100% on room air and temperature 99.6, it was 97 on admission. No significant JVD. Carotids 2+. No bruits. No cervical lymphadenopathy or thyromegaly. Cardiac Exam: S1, S2 with a physiologically split S2. No murmurs, gallops, or rubs. Chest: Clear. No CVAT. Abdominal Exam: Bowel sounds present, nontender. Femoral pulses intact without bruits. Distal pulses intact. No edema. Motor strength 5/5 bilaterally. Deep tendon reflexes 2/4. Alert and oriented x3. DIAGNOSTIC STUDIES/LAB DATA: Her labs include initially white count is 7, hemoglobin low at 10.8, hematocrit of 34, MCV low at 72, and platelet count of 321. Sed rate was 8. Troponins were mentioned above. CRP was less than 1. TSH 2.35. Potassium at 3.8, BUN 17, creatinine 0.88. Alk phos low at 32. Beta hCG was less than 0.6. Urine opiates presumptive positive. Cocaine was negative. Cannabinoids negative. EKG from this morning revealed normal sinus rhythm or sinus bradycardia, 57, with no acute changes. EKG from yesterday afternoon at 1720 reveals sinus rhythm at 68 with perhaps 0.5 -mm ST elevation inferiorly. The one from 2238 last night seemed to show improvement. EKG from April 2015 showed isoelectric STs. She had an echocardiogram performed today, which revealed overall preserved LV function, but there appeared to be subtle area of hypokinesis at the extreme base of the inferior wall, raises the possibility of focal wall motion abnormality versus normal variant. There was [id number] MR, physiological TR , mild PI. No previous study. IMPRESSION AND PLAN: My impression is that Ms. Mendez had an episode of chest pain suspicious for coronary insufficiency and elevation of troponins. This raised possibility of acute coronary syndrome. Given her young age, I think atherosclerotic disease is less likely, but certainly vasospasm or coronary dissection are possibilities especially in light of her history and the possibility that her family has a history of some connective tissue disorder. Given the other possibilities include mild pericarditis, but there does not seem to be evidence to suggest that based on her symptoms or sed rate or CRP or clinical presentation. Given the concern for coronary artery process, we discussed the options of conservative management versus cardiac catheterization to more definitively evaluate anatomy. The risks and benefits of cardiac catheterization including, but not limited to or DC were discussed. The patient understands. She would like to know definitively her anatomy for guidance for future recommendations and genetic testing. For the time being, I recommend the followin. I discussed the case with Dr. Yin, who has kindly agreed to accept the patient for cardiac catheterization. 2. I discussed with her the potential for marijuana use and cocaine use to increase the risk for mobility and mortality and specifically advised against using any cocaine due to risk of coronary artery vasculopathy as well as spasm and infarct or dissection. 3. She is to continue on the anticoagulants for now. 4. I would avoid beta blockers given the recent use of cocaine. 5. We would try to maintain the potassium over 4. 6. She does have anemia. We will check her iron. 7. Follow serial EKGs and troponins. [id number]/[facility] #: [id number] MONA
[2017-04-05] MEDS ORDERED: NS 0.9% 1000 ML* 1,000 ML IV PRN (13:52)
[2017-04-05] MEDS: amLODIPine TAB* 5 MG PO SCH (18:05)
[2017-04-06 05:46] LABS: Hematocrit 32 % (35-47); Hemoglobin 10.4 g/dl (12.0-16.0); Mean Corpuscular HGB Conc 32 g/dl (31-36); Mean Corpuscular Hemoglobin 23 pg (27-31); Mean Platelet Volume 8 um3 (7.4-10.4); Red Blood Count 4.52 10^6/ul (4.0-5.4); Red Cell Distribution Width 16 % (10.5-15); White Blood Count 4.6 10^3/ul (3.5-10.8)
[2017-04-06 05:48] LABS: Comments Flag Yes
[2017-04-06 05:49] LABS: Mean Corpuscular Volume 72 fL (80-97)
[2017-04-06] MEDS: Aspirin EC Low Dose* 81 MG TAB.EC PO SCH (09:41)
[2017-04-06] MEDS: Omeprazole CAP* 20 MG PO SCH (09:41)
[2017-04-06] MEDS: Sertraline* 50 MG TAB PO SCH (09:49)
[2017-04-06] MEDS: amLODIPine TAB* 5 MG PO SCH (09:49)
--- NOTE | 2017-04-06 12:42 | CATH ---
CC: Vikas Mendiola NP; Kiet Yin MD CATH REPORT: DATE OF CATH: 04/05/17 PRIMARY CARE PROVIDER: Vikas Mendiola NP PROCEDURE: Right radial artery access, bilateral selective coronary cineangiography, left heart cat heterization, left ventriculography. 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 Over night, she had repeated bursts of accelerated idioventricular rhythm up to 2 minutes in duration. T IMI score was 1, she was referred for coronary angiography in part because of strong family history of vascular disease with her mother dying of an abdominal aortic dissection in her 30s, as well as t he absence of any traditional other risk factors for coronary artery disease. Within the differenti al was spontaneous coronary artery spasm. PROCEDURE ACCESS: Right radial artery sheath 6F slender. DIAGNOSTIC CATHETER: 5F TIG4, 5F pigtail. MEDICATIONS: 1. Subcu lidocaine. 2. IV Versed. 3. IV fentanyl. 4. Heparin 3000 units. 5. Nitroglycerin 300 mcg. 6. Verapamil 3 mg IA. HEMODYNAMICS: LV 126/12, no aortic valve gradient on pullback. ANGIOGRAPHY: Left main. The left main is normal, large, has no stenosis. LAD. The LAD is moderate, extends past the apex, minimal midsystolic compression, it supplies a lar ge diagonal. The LAD ends past the apex. The LAD has no significant stenosis, has no angiographic evidence of culprit lesion. Circumflex. The circumflex is large, not dominant with a large marginal branch. The circumflex has no significant stenosis or angiographic culprit lesion. RCA. The RCA is very large, dominant with a moderate PDA followed by several posterolaterals. The RCA has no stenosis or culprit lesion. LV gram. There is local minimal inferoapical hypokinesis, normal EF of 55% to 60%. CONCLUSION: 1. Non-ST elevation infarct with angiographically normal coronary arteries. 2. Normal LVEF with mild regional wall motion abnormality. 3. Normal left-sided hemodynamics. 4. Successful right radial artery access. [id number]/[facility] #: [id number]
[2017-04-06 16:04] VITALS: BP 114/80
--- NOTE | 2017-04-07 01:24 | DS ---
CC: Vikas Mendiola NP; Dr. Elkins * DISCHARGE SUMMARY: DATE OF ADMISSION: 04/04/17 DATE OF DISCHARGE: 04/06/17 PRIMARY CARE PROVIDER: Vikas Mendiola NP CONSULTING EMERGENCY VETERINARIAN: Dr. Elkins. RELAY MECHANIC: Dr. Yin. DISCHARGING PROVIDER: HEATHER Solorzano SUPERVISING PHYSICIAN: Yordy Barth MD * (DICTATED BY HEATHER SOLORZANO) PRIMARY DISCHARGE DIAGNOSIS: Non-ST elevation myocardial infarction, likely due to coronary vasospasm with normal cardiac catheterization. SECONDARY DISCHARGE DIAGNOSES: 1. Microcytic anemia, which appears to be secondary to iron deficiency - recommend starting iron supplementation. 2. Gastroesophageal reflux disease. 3. Anxiety. DISCHARGE MEDICATIONS: 1. Aspirin 81 mg p.o. daily. 2. Hydrocodone/acetaminophen 1 tablet p.o. q.8 hours as needed for pain. 3. Protonix 40 mg p.o. daily. 4. Zoloft 50 mg p.o. daily. 5. Carafate 10 mL p.o. q.6 hours as needed for pain. 6. Amlodipine 2.5 mg p.o. daily. 7. Clonazepam 0.5 mg p.o. at bedtime. Medication changes: 1. Start aspirin. 2. Start amlodipine. HOSPITAL IMAGIN. Chest x-ray shows no acute process. 2. CTA of the chest, abdomen, and pelvis shows no CTA evidence of aneurysm, dissection or acute PE. 3. Cardiac catheterization shows normal coronary arteries with normal left ventricular ejection fraction. 4. Transthoracic echocardiogram shows left ventricular ejection fraction of 50 % to 55%. There is a subtle area of hypokinesis at the base of the inferior wall and no significant valvular disease. HOSPITAL COURSE: This is a 31-year-old female with GERD and anxiety who presented to the emergency department with complaints of chest pain. The patient had a positive family history of her mother dying in her mid 30s after a AAA dissection. Her initial troponin was measured at 0.03. Followup 3 hours later was 0.18 and the patient was subsequently admitted to the hospital with concern for a non-ST elevation NE. She underwent CT angiogram in the emergency department to evaluate for PE and/or dissection, which was negative for both. The patient was subsequently managed in the ICU and placed on a heparin drip. She had frequent PVCs and runs of accelerated idioventricular pattern on telemetry. Her troponin climbed to a peak of 0.98. Inflammatory markers were checked including CRP and sed rate for possibility of pericarditis, both of which were negative. She underwent echocardiogram, which showed subtle wall motion abnormality and subsequently underwent cardiac catheterization. Cardiac catheterization was negative for dissection or significant stenosis. She was thought to have likely experienced coronary vasospasm inducing a non-ST elevation NE. The patient was subsequently started on aspirin and amlodipine and remained chest pain free following cardiac catheterization. DISPOSITION AND FOLLOWUP PLAN: The patient is being discharged to home. New medications as listed above. Recommend followup with Cardiology and her primary care provider regarding this hospitalization. Primary care provider can discuss initiating iron supplementation as well. HEATHER SOLORZANO [id number]/[facility] #: [id number] MONA
== END 2017-04-06 14:00 | disposition home or self-care (01) | DRG 190 ==
LOC: ED 17:10 → MEDTELE 23:38 → ICU 04-05 00:13
PROVIDERS: ADMIT Hospitalist; ATTEND Internal Medicine
PROC: B2151ZZ Fluoroscopy of Left Heart using Low Osmolar Contrast (ICD-10-PCS; 2017-04-05)
PROC: 4A023N7 Measurement of Cardiac Sampling and Pressure, Left Heart, Percutaneous Approach (ICD-10-PCS; 2017-04-05)
PROC: B2111ZZ Fluoroscopy of Multiple Coronary Arteries using Low Osmolar Contrast (ICD-10-PCS; principal; 2017-04-05 11:00)
DX: I21.4 Non-ST elevation (NSTEMI) myocardial infarction (principal); D50.9 Iron deficiency anemia, unspecified; F41.9 Anxiety disorder, unspecified; F12.90 Cannabis use, unspecified, uncomplicated; F14.90 Cocaine use, unspecified, uncomplicated; K21.9 Gastro-esophageal reflux disease without esophagitis; Z88.6 Allergy status to analgesic agent; Z91.018 Allergy to other foods; Z72.89 Other problems related to lifestyle; Z82.49 Family history of ischemic heart disease and other diseases of the circulatory system; Z80.7 Family history of other malignant neoplasms of lymphoid, hematopoietic and related tissues; K44.9 Diaphragmatic hernia without obstruction or gangrene; R40.2412 Glasgow coma scale score 13-15, at arrival to emergency department; I49.3 Ventricular premature depolarization; R00.1 Bradycardia, unspecified; Z98.51 Tubal ligation status; I20.1 Angina pectoris with documented spasm; Z79.82 Long term (current) use of aspirin
CPT/HCPCS: 36415; 71010; 71275; 74174; 80053; 80061; 80307; 81003; 81015; 83540; 83550; 83735; 84443; 84484; 84520; 84702; 85025; 85652; 85730; 86140; 87641; 93005; 93306; 93458; 99156; A9270-GY; J1644; J2001; J2060; J2250; J2270; J2405; J3010; Q9967

== ENCOUNTER 2017-08-08 15:41 | Emergency (ER) | payer BC ==
[2017-08-08] MEDS ORDERED: Aspirin Low Dose CHEW TAB* 81 MG PO ONE (16:04)
[2017-08-08] MEDS ORDERED: Pantoprazole IV* 40 MG IV ONE (16:04)
[2017-08-08] MEDS ORDERED: Nitroglycerin TAB 0.4 MG* 0.4 MG TAB SL ONE (16:04)
[2017-08-08] MEDS ORDERED: LORazepam INJ* 2 MG/ML 1 ML VIAL IV ONE (16:04)
[2017-08-08] MEDS ORDERED: Ondansetron INJ* 2 MG/ML VIAL IV ONE (16:04)
[2017-08-08] MEDS ORDERED: Morphine INJ* 4 MG/ML 1 ML CARPUJECT IV ONE (16:06)
[2017-08-08] MEDS ORDERED: NS 0.9% 1000 ML* 1,000 ML IV ONE ×2 (16:06→19:43)
[2017-08-08] MEDS ORDERED: Morphine INJ* 4 MG/ML 1 ML SYRINGE (NEW SYRINGE VERSION) ONE (16:13)
[2017-08-08] MEDS ORDERED: Morphine INJ* 4 MG/ML 1 ML SYRINGE (NEW SYRINGE VERSION) IV ONE (16:23)
--- OUTSIDE RECORDS SUMMARY | 2017-08-08 16:31 | XMS REPORT ---
:1985 External Reference #:[id number] Author Organization [facility] Address [address] [place] [address] Phone [phone] Care Team Providers Name Role Phone Vikas Mendiola NP Primary Care Physician Unavailable Payers Type Date Identification Numbers Payment Provider Subscriber Commercial Policy Number: [id number] [employer] Luiza Mendez PayID: [id number] [address] [address] [place] [address] Problems Date Description Provider Status Onset: 04/11/2017 Acute subendocardial infarction Kiet Yin MD, 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 Allergies, Adverse Reactions, Alerts Date Description Reaction Status Severity Comments 04/11/2017 NKDA active Medications Medication Date Status Form Strength Qnty SIG Indications Ordering Provider Nitroglycerin 05/08/ Active Tablets Sub 0.3mg 25tabs 1 tab SL I21.4 Boaz Elkins M.D. Aspirin Ec 04/11/ Active Tablets DR 81mg 90tabs 1 by Kiet Smith 2017 mouth Sodums, every , FAC, day [facility] Protonix / Active Tablets DR 40mg 1 by Unknown 0000 mouth every day Amlodipine / Active Tablets 2.5mg 30tabs 1 by Boaz Besylate 0000 mouth FAntoinette Elkins, pierce Garza Clonazepam / Active Tablets 0.5mg 1 by Unknown 0000 mouth as needed for sleep Taylor Allergy / Active Tablets 180mg 1 by Unknown 0000 mouth every day Iron / Active Tablets 325(65Fe) 2 by Unknown 0000 mg mouth every day (pt only takes three times weekly) Hydrocodone / Hx Solution 5-217mg/10 1 tablet Unknown Bitartrate/Acet 0000 - ML every 8 aminophen 04/10/ hours as 2016 needed for paini Zoloft / Hx Tablets 50mg 1 by Unknown 0000 - mouth 2016 day Carafate / Hx Suspension 1GM/10ML 10 ml's Unknown 0000 - by mouth 04/10/ four 2017 times a day as needed Vital Signs Date Vital Result Comment 07/18/2017 Height 69 inches 5'9" Weight 148.00 lb w/ shoes Heart Rate 74 /min BP Systolic Sitting 120 mmHg Lue BP Diastolic Sitting 78 mmHg Lue Respiratory Rate 16 /min BMI (Body Mass Index) 21.9 kg/m2 05/08/2017 Height 69 inches 5'9" Weight 143.75 lb with shoes Heart Rate 74 /min BP Systolic Sitting 118 mmHg LA reg cuff BP Diastolic Sitting 64 mmHg LA reg cuff BMI (Body Mass Index) 21.2 kg/m2 Ejection Fraction 50%-55% echo 04/05/17 04/11/2017 Height 69 inches 5'9" Weight 142.00 lb w/ shoes Heart Rate 78 /min BP Systolic Sitting 112 [address] rue reg cuff BP Diastolic Sitting 74 mmHg rue reg cuff BP Systolic Standing 122 [address] reg cuff BP Diastolic Standing 82 [address] reg cuff Respiratory Rate 18 /min BMI (Body Mass Index) 21.0 kg/m2 Ejection Fraction 50-55% echo 04/05/17 Results Description No Information Procedures Date CPT Code Description Status 07/18/2017 73354 EKG Tracing & Interpretation Completed 06/18/2017 01530 ECHO Transthoracic, Real-Time 2D With Doppler And Color Completed Flow 06/18/2017 83075 ECHO Transthoracic, Real-Time 2D With Doppler And Color Completed Flow 04/11/2017 21292 EKG Tracing & Interpretation Completed 04/05/2017 56370 Left Heart Cath. 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 [facility] , F[facility], [facility] Office Visit 04/06/2017 10:24a [facility] Alex 12568 I21.4 Hospitalists HEATHER Moore Office Visit 04/05/2017 10:23a [facility] Alex 10961 I21.4 Hospitalists HEATHER Moore Office Visit 04/05/2017 1:32p [facility] Boaz Crenshaw 15365 R07.89 Kayla Elkins R79.89 Z82.49 Z82.69 R94.31 I21.4 Office Visit 04/04/2017 10:22a [facility] [place], [address] I21.4 Assoc,pc Hospitalists Kayla Plan of Care 07/18/2017 - Dianne Romero, N.P.R07.9 Chest pain, unspecifiedFollow up:4mo MauserRecommendations:Try to take ASA and Amlodipine at night Can use nitro PRN for chest pain.R00.2 JyqcpiervyajJ59.9 Anemia, llkiwdhqzvlM60.1 Angina pectoris with documented spasm
--- NOTE | 2017-08-08 16:36 | RAD ---
Indication: Sternal chest pain and neck pain. History of myocardial infarction. Comparison: April 04, 2017 CT. Technique: Upright AP 1610 hours Report: Elevated lung volumes and both diffuse mild prominence of the interstitial markings and patchy rarefaction of the mid to upper lung zone interstitial markings. No focal pulmonary lesion, compelling alveolar consolidation, pleural effusion, pneumothorax. The heart, pulmonary vasculature, and mediastinal contours are unremarkable. IMPRESSION: Stigmata of obstructive lung disease. No acute pulmonary or cardiac process evident.
[2017-08-08 16:43] LABS: ABS Basophils 0 10^3/ul (0-0.2); ABS Eosinophils 0 10^3/ul (0-0.6); ABS Lymphocytes 2.3 10^3/ul (1.0-4.8); ABS Monocytes 0.4 10^3/ul (0-0.8); ABS Neutrophils 3.3 10^3/ul (1.5-7.7); ABS Nucleated RBC 0 10^3/ul; Eosinophil % 0.4 % (0-6); Hematocrit 34 % (35-47); Hemoglobin 10.9 g/dl (12.0-16.0); Lymphocyte % 37.6 % (25-47); Mean Corpuscular HGB Conc 32 g/dl (31-36); Mean Corpuscular Hemoglobin 23 pg (27-31); Mean Corpuscular Volume 72 fL (80-97); Mean Platelet Volume 8 um3 (7.4-10.4); Nucleated Red Blood Cells % 0; Platelet Count 347 10^3/ul (150-450); Red Blood Count 4.69 10^6/ul (4.0-5.4); Red Cell Distribution Width 18 % (10.5-15)
[2017-08-08 16:55] LABS: INR 0.95 (0.77-1.02)
[2017-08-08] MEDS ORDERED: amLODIPine TAB* 5 MG PO ONE (19:11)
[2017-08-08] MEDS ORDERED: Potassium Chlor TAB* 20 MEQ TAB.ER PO ONE (19:13)
[2017-08-08] MEDS ORDERED: Nitroglycerin 2% OINT* 1 GM PAK TOPICAL ONE (19:48)
--- NOTE | 2017-08-08 20:14 | ED ---
Sarah Valle Thomas, scribed for Deny Givens MD on 08/08/17 at 1705 . HPI Chest Pain - HPI Summary HPI Summary: The patient is a 31 year old female complaining of chest pain that began today at 13:45. The pain radiates to her neck and jaw. The pain is described as tightness. She took NTG, which relieved pain for 15 minutes but the pain has returned. Past medical history includes coronary artery spasms and she is on amlodipine, but she has not taken this medication in two days. The patient had an NSTEMI in March 2017, and she describes her current pain as similar to when she had an NSTEMI. The patient also complains of epigastric pain. She recently had an endoscopy and is diagnosed with gastritis. - History of Current Complaint Chief Complaint: EDChestPainROMI Time Seen by Provider: 08/08/17 15:58 Hx Obtained From: Patient Hx Last Menstrual Period: now Onset/Duration: Started Hours Ago, Still Present Timing: Intermittent Current Severity: Moderate Pain Intensity: 5 Pain Scale Used: 0-10 Numeric Chest Pain Radiates: Yes Chest Pain Radiates To:: Jaw, Neck Character: Tightness Aggravating Factor(s): Nothing Alleviating Factor(s): NTG 123 Associated Signs and Symptoms: Positive: Other: - CP, epigastric pain - Additional Pertinent History Primary Care Physician: PORSCHE - Allergy/Home Medications Allergies/Adverse Reactions: Allergies Allergy/AdvReac Type Severity Reaction Status Date / Time gluten AdvReac GI Upset Verified 08/08/17 15:44 NSAIDS (Non-Steroidal AdvReac GI Upset Verified 08/08/17 15:44 Anti-Inflamma PMH/Surg Hx/FS Hx/Imm Hx Endocrine/Hematology History: Denies: Hx Diabetes Cardiovascular History: Denies: Hx Congestive Heart Failure, Hx Hypertension, Other Cardiovascular Problems/Disorders Respiratory History: Denies: Other Respiratory Problems/Disorders GI History: Reports: Hx Gastroesophageal Reflux Disease - RUTH Fundiplication , Hx Hiatal Hernia History: Denies: Hx Renal Disease Sensory History: Denies: Hx Contacts or Glasses, Hx Hearing Aid Opthamlomology History: Denies: Hx Contacts or Glasses Neurological History: Denies: Other Neuro Impairments/Disorders Psychiatric History: Reports: Hx Anxiety - Surgical History Surgery Procedure, Year, and Place: IUD/WRIST CYST REMOVED. Ruth Fundiplication. Tubal LIgation. Hx Anesthesia Reactions: No Infectious Disease History: No Infectious Disease History: Denies: Traveled Outside the [place] in Last 30 Days - Family History Known Family History: Positive: Cardiac Disease - Mom of aortic aneurysm at 34 y/o. - Social History Alcohol Use: Weekly Alcohol Amount: 2-3 PER WEEK Substance Use Type: Reports: None Smoking Status (MU): Never Smoked Tobacco Have You Smoked in the Last Year: No Review of Systems Negative: Fever Positive: Chest Pain Positive: Other - Epigastric pain All Other Systems Reviewed And Are Negative: Yes Physical Exam - Summary Physical Exam Summary: General: well-appearing, no pain distress Skin: warm, color reflects adequate perfusion, dry Head: normal Eyes: EOMI, KALEB ENT: normal Neck: supple, nontender Respiratory: CTA, breath sounds present Cardiovascular: RRR Abdomen: Soft. She has epigastric tenderness. Bowel: present Musculoskeletal: normal, strength/ROM intact Neurological: normal, sensory/motor intact, A&O x3 Psychological: affect/mood appropriate Triage Information Reviewed: Yes Vital Signs On Initial Exam: Initial Vitals Temp Pulse Resp BP Pulse Ox 99.1 F 65 16 141/97 100 08/08/17 15:44 08/08/17 15:44 08/08/17 15:44 08/08/17 15:44 08/08/17 15:44 Vital Signs Reviewed: Yes Diagnostics - Vital Signs Vital Signs Temp Pulse Resp BP Pulse Ox 08/08/17 16:30 76 14 130/83 100 08/08/17 16:23 16 08/08/17 16:00 62 10 100 08/08/17 15:52 63 19 100 08/08/17 15:44 99.1 F 65 16 141/97 100 - Laboratory Lab Results: Lab Results 08/08/17 08/08/17 08/08/17 Range/Units 16:30 16:30 16:30 WBC (3.5-10.8) 10^3/ul RBC (4.0-5.4) 10^6/ul Hgb (12.0-16.0) g/dl Hct (35-47) % MCV (80-97) fL MCH (27-31) pg MCHC (31-36) g/dl RDW (10.5-15) % Plt Count (150-450) 10^3/ul MPV (7.4-10.4) um3 Neut % (Auto) (38-83) % Lymph % (Auto) (25-47) % Cavalier % (Auto) (0-7) % Eos % (Auto) (0-6) % Baso % (Auto) (0-2) % Absolute Neuts (auto) (1.5-7.7) 10^3/ul Absolute Lymphs (auto) (1.0-4.8) 10^3/ul Absolute Monos (auto) (0-0.8) 10^3/ul Absolute Eos (auto) (0-0.6) 10^3/ul Absolute Basos (auto) (0-0.2) 10^3/ul Absolute Nucleated RBC 10^3/ul Nucleated RBC % INR (Anticoag Therapy) 0.95 (0.77-1.02) APTT 27.5 (26.0-36.3) seconds D-Dimer, Quantitative < 200 (Less Than 230) ng/mL Sodium Pending Potassium Pending Chloride Pending Carbon Dioxide Pending Anion Gap Pending BUN Pending Creatinine Pending Est GFR ( Amer) Pending Est GFR (Non-Af Amer) Pending BUN/Creatinine Ratio Pending Glucose Pending Calcium Pending Magnesium Pending Total Bilirubin Pending AST Pending ALT Pending Alkaline Phosphatase Pending Total Creatine Kinase Pending CK-MB (CK-2) 0.7 (0.6-6.3) ng/mL Troponin I 0.00 (<0.04) ng/mL C-Reactive Protein Pending B-Natriuretic Peptide 47 ( - 100) pg/mL Total Protein Pending Albumin Pending Globulin Pending Albumin/Globulin Ratio Pending Lipase Pending TSH Pending Beta HCG, Quant < 0.60 mIU/mL 08/08/17 Range/Units 16:30 WBC 6.0 (3.5-10.8) 10^3/ul RBC 4.69 (4.0-5.4) 10^6/ul Hgb 10.9 L (12.0-16.0) g/dl Hct 34 L (35-47) % MCV 72 L (80-97) fL MCH 23 L (27-31) pg MCHC 32 (31-36) g/dl RDW 18 H (10.5-15) % Plt Count 347 (150-450) 10^3/ul MPV 8 (7.4-10.4) um3 Neut % (Auto) 54.4 (38-83) % Lymph % (Auto) 37.6 (25-47) % Cavalier % (Auto) 6.9 (0-7) % Eos % (Auto) 0.4 (0-6) % Baso % (Auto) 0.7 (0-2) % Absolute Neuts (auto) 3.3 (1.5-7.7) 10^3/ul Absolute Lymphs (auto) 2.3 (1.0-4.8) 10^3/ul Absolute Monos (auto) 0.4 (0-0.8) 10^3/ul Absolute Eos (auto) 0 (0-0.6) 10^3/ul Absolute Basos (auto) 0 (0-0.2) 10^3/ul Absolute Nucleated RBC 0 10^3/ul Nucleated RBC % 0 INR (Anticoag Therapy) (0.77-1.02) APTT (26.0-36.3) seconds D-Dimer, Quantitative (Less Than 230) ng/mL Sodium Potassium Chloride Carbon Dioxide Anion Gap BUN Creatinine Est GFR ( Amer) Est GFR (Non-Af Amer) BUN/Creatinine Ratio Glucose Calcium Magnesium Total Bilirubin AST ALT Alkaline Phosphatase Total Creatine Kinase CK-MB (CK-2) (0.6-6.3) ng/mL Troponin I (<0.04) ng/mL C-Reactive Protein B-Natriuretic Peptide ( - 100) pg/mL Total Protein Albumin Globulin Albumin/Globulin Ratio Lipase TSH Beta HCG, Quant mIU/mL Result Diagrams: 08/08/17 16:30 08/08/17 16:30 Lab Statement: Any lab studies that have been ordered have been reviewed, and results considered in the medical decision making process. - Radiology CXR Xray Interpretation: No Acute Changes - Stigmata of obstructive lung disease. No acute pulmonary or cardiac process evident. Dr. Givens has reviewed this report. Radiology Interpretation Completed By: Radiologist - EKG 15:44 Cardiac Rate: NL - at 70 BPM EKG Rhythm: Sinus Rhythm ST Segment: Normal Ectopy: None 18:45 Cardiac Rate: NL - at 72 BPM EKG Rhythm: Sinus Rhythm ST Segment: Normal Ectopy: PACs Chest Pain Course/Dx - Course Course Of Treatment: Medications reviewed. Allergies noted. 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 NO CRITICAL CARE TIME. - Diagnoses Provider Diagnoses: Chest pain, Tachycardia - Provider Notifications Discussed Care Of Patient With: Darryn Hawk Time Discussed With Above Provider: 19:52 Instructed by Provider To: Admit As Inpatient Discharge - Discharge Plan Condition: Stable Disposition: ADMITTED TO [facility] Referrals: Vikas Mendiola POLITICAL ORGANIZER [Primary Care Provider] - The documentation as recorded by the Sarah pagan Thomas accurately reflects the service I personally performed and the decisions made by , Deny Givens MD.
[2017-08-08 21:23] VITALS: BP 128/83
== END 2017-08-08 21:23 | disposition home or self-care (01) ==
LOC: ED 15:41
DX: R07.9 Chest pain, unspecified (principal); R00.0 Tachycardia, unspecified; R10.13 Epigastric pain
CPT/HCPCS: 36415; 71045; 80053; 82550; 82553; 83605; 83690; 83735; 83880; 84443; 84484; 84702; 85025; 85379; 85610; 85730; 86140; 93005; 99284; A9270-GY; J2060; J2270; J2405

== ENCOUNTER 2018-01-03 12:28 | Emergency (ER) | payer BC ==
[2018-01-03] MEDS ORDERED: Nitroglycerin 0.2 MG/HR PATCH* (5 MG) TRANSDERM ONE (12:56)
[2018-01-03] MEDS ORDERED: ALPRAZolam TAB* 0.5 MG PO ONE (13:09)
[2018-01-03 13:16] LABS: Hematocrit 43 % (35-47); Hemoglobin 14.7 g/dl (12.0-16.0); Mean Corpuscular HGB Conc 34 g/dl (31-36); Mean Corpuscular Hemoglobin 29 pg (27-31); Mean Corpuscular Volume 85 fL (80-97); Mean Platelet Volume 7.8 um3 (7.4-10.4); Platelet Count 276 10^3/ul (150-450); Red Blood Count 5.09 10^6/ul (4.00-5.40); Red Cell Distribution Width 17 % (10.5-15); White Blood Count 8.3 10^3/ul (3.5-10.8)
--- NOTE | 2018-01-03 13:16 | ED ---
HPI Chest Pain - HPI Summary HPI Summary: This is latasha Riggs documenting for Dr. Martínez West MD. Pt is a 32 y/o F who presents to ED c/o chest pain. She describes the pain as a pressure on her chest and rates is a 3/10 in severity. The chest pain began around 11:30; she had been sitting down when she felt her heart rate speed up and according to her friend, who is a nurse, it jumped from 60 bpm one minute to 140 bpm the next. Notes feeling dizzy and lightheaded, back pain between shoulder blades, and denies LOC. Pt says that walking does not cause her pain and that she works out regularly. She sees a counseling department chair due to stomach ulcers. PMHx of coronary artery spasms and GERD. FHx mother had an aortic aneurysm at 34 y/o. Denies smoking or drug use but drinks alcohol occasionally. - History of Current Complaint Chief Complaint: EDDysrhythmPalp Time Seen by Provider: 01/03/18 12:41 Hx Obtained From: Patient Hx Last Menstrual Period: now Onset/Duration: Started Hours Ago, Still Present Current Severity: Mild Pain Intensity: 3 Pain Scale Used: 0-10 Numeric Character: Pressure/Squeezing Associated Signs and Symptoms: Positive: Chest Pain, Dizziness, Lightheadedness , Back Pain. Negative: Syncope - Additional Pertinent History Primary Care Physician: [id number] - Allergy/Home Medications Allergies/Adverse Reactions: Allergies Allergy/AdvReac Type Severity Reaction Status Date / Time gluten AdvReac GI Upset Verified 01/03/18 12:35 NSAIDS (Non-Steroidal AdvReac GI Upset Verified 01/03/18 12:35 Anti-Inflamma Home Medications: Home Medications Fexofenadine (NF) [Taylor 180 (NF)] 180 mg PO DAILY 01/03/18 [History Confirmed 01/03/18] Nitroglycerin TAB 0.3 MG* 0.3 mg SL Q5M PRN 01/03/18 [History Confirmed 01/03/18 ] Omeprazole CAP* [Prilosec CAP* 20 MG] 40 mg PO BID 01/03/18 [History Confirmed 01/03/18] Potassium Chlor TAB* [Klor Con ER TAB*] 10 meq PO DAILY 01/03/18 [History Confirmed 01/03/18] Sucralfate TAB* [Carafate*] 1 gm PO BID PRN 01/03/18 [History Confirmed 01/03/18 ] clonazePAM TAB(*) [KlonoPIN TAB(*)] 0.5 mg PO BEDTIME PRN 01/03/18 [History Confirmed 01/03/18] PMH/Surg Hx/FS Hx/Imm Hx Endocrine/Hematology History: Denies: Hx Diabetes Cardiovascular History: Denies: Hx Congestive Heart Failure, Hx Hypertension, Other Cardiovascular Problems/Disorders Respiratory History: Denies: Other Respiratory Problems/Disorders GI History: Reports: Hx Gastroesophageal Reflux Disease - RUTH Fundiplication , Hx Hiatal Hernia Denies: Other GI Disorders - GERD History: Denies: Hx Renal Disease Sensory History: Denies: Hx Contacts or Glasses, Hx Hearing Aid Opthamlomology History: Denies: Hx Contacts or Glasses Neurological History: Denies: Other Neuro Impairments/Disorders Psychiatric History: Reports: Hx Anxiety - Surgical History Surgery Procedure, Year, and Place: IUD/WRIST CYST REMOVED. Ruth Fundiplication. Tubal LIgation. Hx Anesthesia Reactions: No Infectious Disease History: No Infectious Disease History: Denies: Traveled Outside the [place] in Last 30 Days - Family History Known Family History: Positive: None, Cardiac Disease - Mom of aortic aneurysm at 34 y/o. - Social History Alcohol Use: Weekly Alcohol Amount: 2-3 PER WEEK Hx Substance Use: No Substance Use Type: Reports: None Hx Tobacco Use: Yes Smoking Status (MU): Never Smoked Tobacco Have You Smoked in the Last Year: No Review of Systems Positive: Other - Lightheaded, dizziness Positive: Chest Pain Positive: Other - Back pain between shoulder blades Negative: Syncope All Other Systems Reviewed And Are Negative: Yes Physical Exam - Summary Physical Exam Summary: Appearance: Well appearing, no pain distress Skin: warm, dry, reflects adequate perfusion Head/face: normal Eyes: EOMI, KALEB ENT: normal Neck: supple, non-tender Respiratory: CTA, breath sounds present Cardiovascular: RRR, pulses symmetrical Abdomen: non-tender, soft Bowel: present Musculoskeletal: normal, strength/ROM intact Neuro: normal, sensory motor intact, A&Ox3 Triage Information Reviewed: Yes Vital Signs On Initial Exam: Initial Vitals Temp Pulse Resp BP Pulse Ox 99.1 F 73 18 138/101 100 01/03/18 12:30 01/03/18 12:30 01/03/18 12:30 01/03/18 12:30 01/03/18 12:30 Vital Signs Reviewed: Yes Diagnostics - Vital Signs Vital Signs Temp Pulse Resp BP Pulse Ox 01/03/18 12:30 99.1 F 73 18 138/101 100 - Laboratory Result Diagrams: 01/03/18 13:05 01/03/18 13:05 Lab Statement: Any lab studies that have been ordered have been reviewed, and results considered in the medical decision making process. - Radiology CXR Radiology Interpretation Completed By: Radiologist - 12:56. Impression: No evidence for acute disease. ED Physician reviewed this report. - CT Chest/Abd/Pel CTA CT Interpretation Completed By: Radiologist - 14:06. Impression: No acute CT pathology of the visualized chest, abdomen, or pelvis. ED Physician reviewed this report. - EKG 12:40 Cardiac Rate: NL - 70 bpm EKG Rhythm: Sinus Rhythm EKG Interpretation: No acute changes 16:49 Cardiac Rate: NL - 79 bpm EKG Rhythm: Sinus Rhythm EKG Interpretation: no acute changes Chest Pain Course/Dx - Course Course Of Treatment: Pt is a 32 y/o F who presents to ED c/o chest pain that she describes as a pressure and rates as 3/10. The chest pain began around 11: 30 when she had been sitting down when she felt her heart rate speed up. Notes feeling dizzy and lightheaded, back pain between shoulder blades, and denies LOC. PMHx of coronary artery spasms and FHx of mother who had aortic aneurysm at 34. Physical exam was normal. Pt was given Acetaminophen, ALPRAZolam, Iohexol , NIFEdipine, and Nitroglycerin during ED course. CXR showed no evidence for acute disease. Chest/Abd/Pel CTA showed no acute CT pathology. Both EKGs at 12: 40 and 16:49 showed sinus rhythm and no acute changes. Pt is diagnosed with chest pain and vasospastic angina. Spoke with hospitalist Dr. Lopez who agrees to admit patient. Pt is agreeable with this plan. - Chest Pain Differential Diagnosis/HQI/PQRI: Acute MO, Angina, Chest Wall, Lower Respiratory Infection, Other: - prinz metal angina - Diagnoses Provider Diagnoses: Chest pain, Vasospastic angina - Provider Notifications Discussed Care Of Patient With: Maddison Lopez Time Discussed With Above Provider: 03:45 Instructed by Provider To: Other - Dr. Lopez agrees to admit pt. 5:10 Dr. Lopez evaluated pt and decides to discharge home. Pt wants to go home and not be admitted. Discharge - Sign-Out/Discharge Documenting (check all that apply): Patient Departure - Discharge - Discharge Plan Condition: Stable Disposition: HOME Patient Education Materials: Angina (ED) Referrals: Vikas Mendiola NP [Primary Care Provider] - 3 Days Boaz Elkins MD [Medical Doctor] - 2 Days Additional Instructions: Return to ED for any new or worsening symptoms. - Billing Disposition and Condition Condition: STABLE Disposition: Home
--- NOTE | 2018-01-03 13:32 | RAD ---
INDICATION: Chest pain. COMPARISON: Comparison is made with a prior chest x-ray study from September 09, 2017. TECHNIQUE: A portable view of the chest was obtained. FINDINGS: Cardiac and mediastinal contours appear to be within normal limits. The lungs are clear. No pleural effusion or pneumothorax is seen. There is a mild dorsal scoliosis convex toward the right side. IMPRESSION: NO EVIDENCE FOR ACUTE DISEASE.
[2018-01-03 13:35] LABS: INR 0.92 (0.77-1.02)
--- OUTSIDE RECORDS SUMMARY | 2018-01-03 13:35 | XMS REPORT ---
:1985 External Reference #:[id number] Author Organization [employer] Address [address] [place] [address] [place] [address] Phone [phone] Care Team Providers Name Role Phone Vikas Mendiola NP Primary Care Physician Unavailable Payers Type Date Identification Numbers Payment Provider Subscriber Commercial Policy Number: [id number] [employer] Luiza Mendez PayID: [id number] [address] [address] [place] [address] Problems Date Description Provider Status Onset: 04/11/2017 Acute subendocardial infarction Kiet Yin MD, [facility] , Active [facility] Onset: 04/04/2017 Acute non-ST [...] Active Tablets Sub 0.3mg 25tabs 1 tab sl I21.4 Boaz 2017 as F. needed Kayla Elkins Clonazepam / Active Tablets 0.5mg 1 by Unknown 0000 mouth as needed for sleep Taylor Allergy 00/ Active Tablets 180mg 1 by Unknown 0000 mouth every day Omeprazole 00/ Active Capsules DR 40mg 1 by Unknown 0000 mouth bid Aspirin Ec 04/11/ Hx Tablets DR 81mg 90tabs 1 by Kiet Smith 2017 - mouth Sodums, 12/22/ every , FACC, 2017 day [facility]SCAI Hydrocodone / Hx Solution 5-217mg/10 1 tablet Unknown Bitartrate/Acet 0000 - ML every 8 aminophen 04/10/ hours as 2016 needed for paini Protonix / Hx Tablets DR 40mg 1 by Unknown 0000 - mouth 2017 day Zoloft / Hx Tablets 50mg 1 by Unknown 0000 - mouth 2016 day Carafate / Hx Suspension 1GM/10ML 10 ml's Unknown 0000 - by mouth 04/10/ four 2016 times a day as needed Amlodipine / Hx Tablets 2.5mg 30tabs 1 by Boaz Besdany 0000 - mouth F. 09/25/ bid Simran Elkins M.D. Iron / Hx Tablets 325(65Fe) 2 by Unknown 0000 - mg mouth 2017 day (pt only takes three times weekly) Vital Signs Date Vital Result Comment 12/23/2017 Height 69 inches 5'9" Weight 136.00 lb w/shoes Heart Rate 64 /min BP Systolic Sitting 100 mmHg LA reg cuff BP Diastolic Sitting 84 mmHg LA reg cuff BMI (Body Mass Index) 20.1 kg/m2 Ejection Fraction 60-65% Echo 06/18/17 07/18/2017 Height 69 inches 5'9" Weight 148.00 [...] kg/m2 Ejection Fraction 50-55% echo 04/05/17 Results Test Date Test Result H/L Range Note Iron & Iron Binding Capacity 11/26/2017 Iron 52 g/dL 50-212 Unsaturated Iron Binding 236 g/dL Total Iron Binding Capacity 288 g/dL 250-450 Transferrin 206 mg/dL 203-362 % Iron Saturation 18 % 15-55 Laboratory test finding 11/26/2017 Ferritin 43.1 ng/mL 11-307 CBC Auto Diff 11/26/2017 White Blood Count 6.4 10^3/uL 3.5-10.8 Red Blood Count 4.69 10^6/uL 4.00-5.40 Hemoglobin 12.9 g/dL 12.0-16.0 Hematocrit 39 % 35-47 Mean Corpuscular Volume 83 fL 80-97 Mean Corpuscular Hemoglobin 28 pg 27-31 Mean Corpuscular HGB Conc 33 g/dL 31-36 Red Cell Distribution Width 22 % High 10.5-15 Platelet Count 246 10^3/uL 150-450 Mean Platelet Volume 8.3 um3 7.4-10.4 Abs Neutrophils 3.7 10^3/uL 1.5-7.7 Abs Lymphocytes 2.1 10^3/uL 1.0-4.8 Abs Monocytes 0.4 10^3/uL 0-0.8 Abs Eosinophils 0 10^3/uL 0-0.6 Abs Basophils 0 10^3/uL 0-0.2 Abs Nucleated RBC 0 10^3/uL Granulocyte % 58.7 % 38-83 Lymphocyte % 33.7 % 25-47 Monocyte % 6.5 % 0-7 Eosinophil % 0.6 % 0-6 Basophil % 0.5 % 0-2 Nucleated Red Blood Cells % 0.1 Cell Morphology 11/26/2017 Elliptocyte 2+ CBC Auto Diff 10/03/2017 White Blood Count 6.6 10^3/uL 3.5-10.8 Red Blood Count 4.87 10^6/uL 4.0-5.4 Hemoglobin 11.7 g/dL Low 12.0-16.0 Hematocrit 36 % 35-47 Mean Corpuscular Volume 74 fL Low 80-97 1 Mean Corpuscular Hemoglobin 24 pg Low 27-31 Mean Corpuscular HGB Conc 32 g/dL 31-36 Red Cell Distribution Width 18 % High 10.5-15 Platelet Count 350 10^3/uL 150-450 Mean Platelet Volume 8.1 um3 7.4-10.4 Abs Neutrophils 4.2 10^3/uL 1.5-7.7 Abs Lymphocytes 1.9 10^3/uL 1.0-4.8 Abs Monocytes 0.4 10^3/uL 0-0.8 Abs Eosinophils 0 10^3/uL 0-0.6 Abs Basophils 0 10^3/uL 0-0.2 Abs Nucleated RBC 0 10^3/uL Granulocyte % 63.7 % 38-83 Lymphocyte % 29.0 % 25-47 Monocyte % 6.7 % 0-7 Eosinophil % 0.2 % 0-6 Basophil % 0.4 % 0-2 Nucleated Red Blood Cells % 0.1 Iron & Iron Binding Capacity 10/03/2017 Iron 48 g/dL Low 50-212 Unsaturated Iron Binding 404 g/dL Total Iron Binding Capacity 452 g/dL High 250-450 Transferrin 323 mg/dL 203-362 % Iron Saturation 11 % Low 15-55 Laboratory test finding 10/03/2017 Ferritin 4.2 ng/mL Low 11-307 Vitamin B12 637 pg/mL 180-914 2 1 Consistent with Previous Results Reported on 09/09/17 2 Normal Range 180 to 914 Indeterminate Range 145 to 180 Deficient Range <145 Procedures Date CPT Code Description Status 12/23/2017 47660 EKG Tracing & Interpretation Completed 07/25/2017 52323 Colonoscopy Flexible Diagnostic Completed 07/25/2017 83054 Endoscopy Upper GI Biopsy Completed 07/25/2017 Colonoscopy Completed 07/18/2017 77067 EKG Tracing & Interpretation Completed 07/18/2017 08655 EKG Tracing & Interpretation Completed 06/18/2017 20602 ECHO Transthoracic, Real-Time 2D With Doppler And Color Completed Flow 06/18/2017 24570 ECHO Transthoracic, Real-Time 2D With Doppler And Color Completed Flow 04/11/2017 67176 EKG Tracing & Interpretation Completed 04/05/2017 80196 Left Heart Cath. Incl S/I Coronaries, Angio S/I V Gram Completed If Done 04/05/2017 42026 ECHO Transthorasic Realtime 2D W Doppler & Color Flow Completed Hosp 04/05/2017 93100 EKG, Interpretation Only Completed 05/03/2015 98206 EKG, Interpretation Only Completed Encounters Type Date Location Provider CPT E/M Dx Office Visit 07/18/2017 9:30a [facility] Dianne Romero, N.P. 21693 R07.9 R00.2 D64.9 I20.1 I25.2 Office Visit 05/08/2017 8:30a [facility] HEATHER Rashid 31769 I21.4 D64.9 R00.2 K21.9 Office Visit 04/11/2017 2:45p [facility] Kiet Yin, 52422 I21.4 [facility] [place] FACC, [facility] Office Visit 04/06/2017 10:24a [facility] Alex 95159 I21.4 Hospitalists HEATHER Moore Office Visit 04/05/2017 10:23a [facility] Alex 38855 I21.4 Hospitalists HEATHER Moore Office Visit 04/05/2017 1:32p [facility] Boaz Crenshaw 24067 R07.89 Kayla Elkins R79.89 Z82.49 Z82.69 R94.31 I21.4 Office Visit 04/04/2017 10:22a [facility] [place], [address] I21.4 Assoc,pc Hospitalists Kayla Plan of Care 12/23/2017 - Boaz Elkins M.D.R07.9 Chest pain, unspecifiedFollow up:ov 10 mR00.2 BancikmerkoaF26.9 Angina pectoris, xkewjgexnrpS56.9 Cardiomyopathy, unspecified
--- OUTSIDE RECORDS SUMMARY | 2018-01-03 13:36 | XMS REPORT ---
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 [address] PayID: [id number] MASON Santos [id number] Medigap Part B Effective: Policy Number: Hedy Mendez 2009 [id number] Expires: 2011 Group Name: Hedy Willie Epo [address] [address] PayID: [id number] MASON Santos [id number] Medigap Part B Effective: Policy Number: Hedy Valencia Vanessa 2011 [id number] Expires: 2012 Group Name: [employer] [place] [address] [address] PayID: [id number] Ochoa [id number] Problems Date Description Provider Status Onset: 08/24/2011 Contraception care management Sharon Hamilton M.D. Active Family History Date Family Member(s) Problem(s) Comments Father due to Multiple () Meyloma Mother due to Aneurysm () - at age 34...aortic aneurysm First Sister Depression First Sister Anxiety Paternal Grandfather 75 Paternal Grandfather Asthma Paternal Grandfather Arthritis Paternal Grandmother 80 Paternal Grandmother Arthritis Maternal Grandfather Cancer, Kidney - 03/2015 Maternal Grandmother Hypothyroid Maternal Grandmother after hip fracture Social History Type Date Description Comments Education Highest level completed, nursing Associates Degree Marital Status Lives With Son 2 boys Lives With Spouse lives in an apartment at [facility] Diet Healthy, Well Balanced tries to follow a well balanced diet, will skip breakfast due to work schedule, drinks plenty of milk, good calcium intake Smoke-Free Home is smoke-free 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 Cigarette Use Never Smoked Cigarettes ETOH Use Occasionally consumes alcohol Recreational Drug Use Former Drug User used to use THC, ectasy and cocaine, has not used since 2004 Smoking Patient has never smoked Daily Caffeine Consumes on average 3 cups of coffee per day Enjoy Exercising Enjoys exercising exercises 4 times per week Allergies, Adverse Reactions, Alerts Date Description Reaction Status Severity Comments 05/18/2008 NKDA active Medications Medication Date Status Form Strength Qnty SIG Indications Ordering Provider Apri 12/05 Active Tablets 0.15-30mg 168ta 1 by mouth N92.6 Shawnti R. /2017 -mcg bs every day [facility] Tizanidine HCL 09/06 Active Tablets 4mg 30tab Take One Shawnti R. /2017 s Tablet By Storm, Mouth Every [facility] 6 Hours as Needed For Muscle Spasm Clonazepam 02/06 Active Tablets 0.5mg 30tab take one F41.9 Shawnti R. /2015 s tablet by Storm, mouth at [facility] bedtime as needed for sleep/anxiet y; maximum daily dose=1 Fluticasone 12/20 Active Suspension 50mcg/Act 1unit one spray to R09.82 Shawnti R. Propionate s each nostril , daily [facility] Taylor 08/30 Active Tablets 180mg 30tab 1 by mouth Shawnti R. Allergy /2014 s every day Storm, [facility] Tretinoin 11/10 Active Cream 0.025% 20gm apply pea L70.0 sized amount Dioni, to face [facility] before bed Omeprazole Active Capsules DR 40mg 1 by mouth Unknown /0000 twice daily Fluconazole 09/18 Hx Tablets 150mg 2tabs 1 tablet by Nichelle /2017 mouth x1 now Ruth Crespo, - for yeast M.D. 12/05 infection, October repeat x 1 in 1 week if needed Cipro 09/06 Hx Tablets 500mg 20tab one by mouth Shawnti R. /2017 s twice a day Maury, - for 10 days [facility] 09/16 if needed for traveler's diarrhea Clindamycin 07/08 Hx Cream 2% 40gm one N76.0 Shawnti R. Phosphate applicator Maury, - full into [facility] 07/18 vaginal before bed for one week Ciprofloxacin 06/05 Hx Tablets 500mg 14tab take 1 R31.9 Hilda HCL /2016 s tablet by Dioni, - mouth twice [facility] 07/08 a day x days Diflucan 06/05 Hx Tablets 150mg 2tabs take 1 R31.9 Hilda /2016 tablet now Dioni, - october repeat [facility] 07/08 in 1 week if needed Acetaminophen- 08/03 Hx Tablets 300-30mg 30tab 1 or 2 by J01.90 Vikas Oreilly Codeine #3 s mouth q6hr Maury, - as needed [facility] 11/07 severe pain Amoxicillin/Cl 07/21 Hx Tablets 875-125mg 20tab 1 tablet J01.90 Hilda avulanate /2016 s twice a day Rudi Ambrocio - x 10 days [facility] 11/07 Sertraline HCL 02/06 Hx Tablets 50mg 30tab take one F41.9 Shakeel s tablet by Charlene, - mouth every M.D. 05/09 day Tizanidine HCL 11/30 Hx Tablets 4mg 30tab Take One Amandoi R. s Tablet By Maury, - Mouth Every [facility] 04/05 6 Hours as Needed For Muscle Spasm Diflucan 11/21 Hx Tablets 150mg 2tabs take 1 Shawnti R. tablet by Maury, - mouth once, [facility] 04/05 repeat in one week if needed for yeast infection Cipro 11/10 Hx Tablets 250mg 10tab 1 tab by N39.0 Nam s mouth twice Wendi - daily for 5 III, [facility] Trazodone HCL 11/07 Hx Tablets 50mg 30tab Take 1/2 To Shawnti R. s 1 Tablet AT [facility], - Bedtime as [facility] 04/05 Needed For Sleep Pantoprazole 09/[address] 40mg 90tab Take One Katlin Sodium s Tablet By Adam, - Mouth Every M.D., R.D. Amoxicillin 07/30 Hx Tablets 875mg 20tab 1 by mouth J02.0 s twice a day P. Blegen, - x 10 days M.D. 04/05 Iron (Ferrous 07/19 Hx Tablets 256(28Fe) daily Shawnti R. Gluconate) /2015 mg Maury, - [facility] 04/05 Hydroxyzine 07/12 Hx Capsules 25mg 60cap Take 1 To 2 Shawnti R. Pamoate s Capsules By [facility], - Mouth Every [facility] 04/05 Night AT Bedtime as Needed For Insomnia And Anxiety Cipro 06/09 Hx Tablets 250mg 10tab 1 by mouth s twice a day P. Blegen, - for 5 days M.D. 07/30 Omeprazole 08/[address] 40mg 60cap 1 by mouth s bid per gi Josué Medina M.D., R.D. 07/30 Lidocaine-Pril 03/22 Hx Cream 2.5-2.5% 25gm Apply A Pea Shawnti R. ocaine Sized Amount [facility], - To Affected [facility] 08/30 Area Times A Day as Needed For Pain Zyrtec Allergy 03/12 Hx Tablets 10mg 1 by mouth Shawnti R. /2014 daily for Storm, - allergies [facility] 08/30 Marshmallow 03/12 Hx daily for Shawnti R. Root 2014 bladder and Storm, - renal [facility] 11/07 health-- occasionally Slippery Elm 03/12 Hx daily for Shawnti R. /2014 bladder- Storm, - occasionally [facility] 11/07 Vivotif Shanika 03/[address] 4caps 1 pill by V70.0 Shawnti R. Vaccine mouth 1 hour Storm, - prior to a [facility] 07/12 meal every other day for 4 doses Cipro 03/12 Hx Tablets 500mg 20tab one by mouth V70.0 Shawnti R. /2013 s twice a day , - for 10 days [facility] 05/10 if needed Seasonique 03/12 Hx Tablets 0.15-0.03 90tab 1 by mouth V25.9 Shawnti R. &0.01mg s every day , - [facility] 05/10 Lidocaine-Pril 02/22 Hx Cream 2.5-2.5% 5gm apply pea 595.9 Shawnti R. ocaine amuont to , - affected [facility] 03/12 area tid prn pain Diflucan 02/22 Hx Tablets 150mg 2tabs 150mg by Shawnti R. mouth once, Storm, - may repeat [facility] 03/12 in one week if needed for yeast infection Cipro 02/06 Hx Tablets 250mg 10tab 1 pill by Shawnti R. s mouth twice , - a day for 5 [facility] 02/13 days urine infection Minocycline 11/20 Hx Capsules 100mg 20cap 1 by mouth Shawnti R. HCL s twice a day , - for 10 days [facility] 02/22 Trazodone HCL 10/27 Hx Tablets 50mg 30tab take 1/2 or Shawnti R. /2013 s 1 tablet at , - bedtime if [facility] 06/09 needed for sleep Hydroxyzine 10/20 Hx Capsules 25mg 60cap take 1-2 780.52 Shawnti R. Pamoate s capsules by Storm, - mouth every [facility] 06/09 night at bedtime as needed insomnia and anxiety Cipro 10/09 Hx Tablets 250mg 10tab 1 pill po 599.0 Shawnti R. s bid for 5 Storm, - days for [facility] 10/19 urine infection Amoxicillin 05/29 Hx Tablets 875mg 20tab 1 tablet bid 461.8 Hilda /2012 s x 10 days Dioni, - [facility] 11/10 Claritin 01/19 Hx Capsules 10mg 1 po daily Shawnti R. /2012 for Storm, - allergies [facility] 03/12 Ciprofloxacin 12/12 Hx Tablets 250mg 10tab 1 po bid for 599.0 Hilda HCL /2012 s urine Dioni, - infection x [facility] 01/19 5 days Fluticasone 11/27 Hx Suspension 50mcg/Act 1unit one spray to 784.91 Shawnti R. Propionate s each nostril , - daily [facility] 03/12 Nuvaring 08/23 Hx Ring 0.12-0.01 1unit use pv as Sharon 5mg/24HR s directed Josué Huffman M.D. 09/05 Nabumetone 08/23 Hx Tablets 500mg 60tab 1 po bid 724.5 Sharon s Josué Huffman M.D. 09/05 Tizanidine HCL 08/23 Hx Tablets 4mg 30tab take one by 724.5 Shawnti R. s mouth every , - 6 hours as [facility] 06/09 needed for muscle spasm Sulfamethoxazo 03/23 Hx Tablets 800-160mg 20tab Use one 682.0 Sharon le/Trimethopri s tablet po oriana Huffman DS - bid M.DAntoinette 04/02 Ortho 12/23 Hx Tablets 0.18/0.21 3mont 1 po daily V25.09 Shawnti R. Tri-Cyclen 5/0.25 h as directed Maury, - mg-3 [facility] 08/23 [place] 11/15 Hx Tablets 5-325mg 2 po now for Shawnti R. pain Storm, - [facility] 08/23 Hydrocodone-Ac 11/15 Hx Tablets 5-325mg 40for 1 or 2 po Katlin etaminophen ty qid prn Adam, - severe pain M.D., R.D. 08/23 Sertraline HCL 09/08 Hx Tablets 100mg 45tab 1 and 1/2 po 648.44 Shawnti R. /2009 s daily for Storm, - depression/a [facility] 08/23 nx Clonazepam 09/08 Hx Tablets 0.5mg 180ta 1 po bid prn 300.00 Shawnti R. /2009 bs anxiety Storm, - [facility] 08/23 code b Sertraline HCL 07/22 Hx Tablets 100mg 90tab 1 po daily 648.44 Shawnti R. /2009 s for anxiety Storm, - [facility] 09/08 Sulfamethoxazo 07/04 Hx Tablets 800-160mg 20tab one po bid 599.0 Sadie khan-TMP s for 10 days Pardeep Bledsoe, 08/23 M.D. Ortho 01/27 Hx Tablets 3pack 1 po qd V25.09 Shawnti R. Tri-Cyclen s Storm, - [facility] 12/23 Diflucan 01/27 Hx Tablets 150mg 2tabs 150mg po 616.10 Shawnti R. /2008 once, october, - repeat in [facility] 08/23 one week needed for yeast infection Clotrimazole 01/27 Hx Cream 1% 1tube apply to 616.10 Shawnti R. affected Storm, - area 3 times [facility] 08/23 Robitussin ac 08/31 Hx 150ml 1-2 tsp po 465.9 Shawnti R. /2008 q4-6hr prn Storm, - cough/pain [facility] 09/10 No School 08/31 Hx please 558.9 Shawnti R. /2008 excuse due Storm, - to illness, [facility] 09/10 when feeling better. Tessalon 07/07 Hx Capsules 100mg 40cap 1-2 tid prn 786.2 Aviva Ginger Hernandez s cough Pat, - F.N.P.C. 01/27 Asmanex 07/07 Hx Inhaler 220mcg 1unit 1 puff qd 786.2 Aviva Ginger Twistihaler /2008 s Josué StewartNAntoinettePAntoinetteCAntoinette 01/27 Nuvaring 05/18 Hx Ring 1unit insert 1 V25.09 Shawnti R. /2007 s ring into Storm, - vagina, [facility] 01/[address] for for three weeks, remove for one week, repeat cycle with new ring Physical 05/18 Hx eval and 625.6 Shawnti R. Therapy treat stress Storm, - incontinence [facility] 01/27 Sertraline HCL 09/21 Hx Tablets 50mg 30tab one po daily 648.44 Shawnti R. /2007 s for Storm, - depression [facility] 07/22 and anxiety /2009 Diflucan 06/20 Hx Tablets 150mg 1tabs 150MG PO Shawnti R. /2007 Once, October Storm, - Repeat In [facility] 01/27 One Week Needed For Yeast Infection Xanax 05/06 Hx Tablets 0.25mg 10tab 1 tabs po Shawnti R. /2006 s tid prn Storm, - anxiety [facility] 05/10 during rides Sertraline 02/20 Hx Tablets 25mg 30tab One Pill By 648.44 Shawnti R. /2006 s Mouth Daily Storm, - For [facility] 09/21 Depression Paragard Hx IUD T380a August 2012 724.1 Unknown Intrauterine /0000 Copper - Contraceptive 03/12 T380a Jenna Hx Tablets 3-0.02mg 84tab 1 po daily Shawnti R. / s Storm, - [facility] 04/05 Amlodipine Hx Tablets 2.5mg Unknown Besylate / - 12/[address] 81mg Unknown /0000 - 12/05 Medications Administered in Office Medication Date Status Form Strength Qnty SIG Indications Ordering Provider TB,Intradermal Administered Injection Amandoi RAntoinette (PPD, Mantoux) 009 Storm, [facility] Immunizations CPT Code Status Date Vaccine Lot # [id number] Given 03/13/2017 Influenza Virus Vaccine, Quadrivalent, 3 Yr > Quad, Preserv Free 07940 Given 02/13/2016 Influenza Virus Vaccine, Quadrivalent, 3 Yr > Quad, Preserv Free 21980 Given 04/01/2015 Influenza Virus Vaccine, Quadrivalent, 3 Yr > [id number] Quad, Preserv Free 82141 Given 03/12/2014 Hep B Vaccine Adult, 3 Dose age >20 yrs [id number] 87712 Given 03/12/2014 Flumist, Influenza Vaccine Quadrivalent, Live For [id number] Intranasal Use 33559 Given 03/12/2014 Hepatitis A, Adult [id number] 30132 Given 08/24/2011 Tdap (Adacel) [id number] 73085 Given 12/20/1994 MMR (Measles,Mumps,Rubella) 47504 Given 04/01/1985 MMR (Measles,Mumps,Rubella) Vital Signs Date Vital Result Comment 12/05/2017 Weight 137.00 lb Weight in kg's 62.143 BP Systolic 108 mmHg BP Diastolic 82 mmHg Heart Rate 64 /min Body Temperature 98.5 F Respiratory Rate 16 /min O2 % BldC Oximetry 98 % 07/08/2017 Weight 140.00 lb Weight in kg's 63.504 BP Systolic 110 mmHg BP Diastolic 70 mmHg Heart Rate 78 /min Body Temperature 99.2 F Respiratory Rate 16 /min Height 68 inches 5'8" BMI (Body Mass Index) 21.3 kg/m2 O2 % BldC Oximetry 98 % 06/05/2017 Weight 143.00 lb Weight in kg's 64.865 BP Systolic 110 mmHg BP Diastolic 68 mmHg Heart Rate 81 /min Body Temperature 98.1 F Respiratory Rate 16 /min Last Menstrual Period 7545401 O2 % BldC Oximetry 98 % 05/09/2017 Weight 143.00 lb Weight in kg's 64.865 BP Systolic 110 mmHg BP Diastolic 78 mmHg Heart Rate 77 /min Body Temperature 97.8 F O2 % BldC Oximetry 98 % 04/09/2017 Weight 139.00 lb Weight in kg's 63.050 BP Systolic 110 mmHg BP Diastolic 80 mmHg Heart Rate 60 /min Body Temperature 98.6 F Respiratory Rate 14 /min 08/03/2016 Weight 140.00 lb Weight in kg's 63.504 BP Systolic 112 mmHg BP Diastolic 85 mmHg Heart Rate 56 /min 07/21/2016 BP Systolic 128 mmHg BP Diastolic 82 mmHg Heart Rate 86 /min Body Temperature 98.6 F O2 % BldC Oximetry 96 % 04/05/2016 Weight 140.00 lb Weight in kg's 63.504 BP Systolic 110 mmHg BP Diastolic 80 mmHg Heart Rate 56 /min Height 68 inches 5'8" BMI (Body Mass Index) 21.3 kg/m2 Last Menstrual Period 4747792 03/01/2016 Weight 141.00 lb Weight in kg's 63.958 BP Systolic 90 mmHg BP Diastolic 60 mmHg Heart Rate 52 /min Body Temperature 98.6 F Respiratory Rate 12 /min 02/07/2016 Weight 141.00 lb Weight in kg's 63.958 BP Systolic 100 mmHg BP Diastolic 61 mmHg Heart Rate 68 /min O2 % BldC Oximetry 95 % 11/11/2015 Weight 143.00 lb Weight in kg's 64.865 BP Systolic 110 mmHg BP Diastolic 78 mmHg Heart Rate 60 /min Body Temperature 97.4 F 09/27/2015 Weight 144.00 lb Weight in kg's 65.318 BP Systolic 96 mmHg BP Diastolic 64 mmHg Heart Rate 88 /min Last Menstrual Period [id number] 07/30/2015 Weight 144.00 lb Weight in kg's 65.318 BP Systolic 110 mmHg BP Diastolic 80 mmHg Heart Rate 117 /min Body Temperature 101.7 F O2 % BldC Oximetry 99 % 05/31/2015 Weight 145.00 lb Weight in kg's 65.772 BP Systolic 100 mmHg BP Diastolic 70 mmHg Heart Rate 70 /min Body Temperature 97.5 F Motrin 45 Mins Ago 04/01/2015 Weight 144.00 lb Weight in kg's 65.318 BP Systolic 116 mmHg BP Diastolic 72 mmHg Heart Rate 84 /min Height 68.5 inches 5'8.50" BMI (Body Mass Index) 21.6 kg/m2 Last Menstrual Period [id number] 08/30/2014 Weight 152.00 lb Weight in kg's 68.947 BP Systolic 120 mmHg BP Diastolic 70 mmHg Heart Rate 68 /min 07/08/2014 Weight 153.00 lb Weight in kg's 69.401 BP Systolic 120 mmHg BP Diastolic 80 mmHg Heart Rate 55 /min Body Temperature 98.7 F O2 % BldC Oximetry 98 % 03/29/2014 Weight 152.00 lb Weight in kg's 68.947 BP Systolic 100 mmHg BP Diastolic 70 mmHg Heart Rate 68 /min 03/12/2014 Weight 150.00 lb Weight in kg's 68.040 BP Systolic 100 mmHg BP Diastolic 70 mmHg Heart Rate 62 /min Height 69 inches 5'9" BMI (Body Mass Index) 22.1 kg/m2 Last Menstrual Period [id number] [place] 02/22/2014 Weight 150.00 lb Weight in kg's 68.040 BP Systolic 100 mmHg BP Diastolic 70 mmHg Heart Rate 62 /min 11/10/2013 Weight 148.00 lb Weight in kg's 67.133 BP Systolic 98 mmHg BP Diastolic 74 mmHg Heart Rate 68 /min Height 68 inches 5'8" BMI (Body Mass Index) 22.5 kg/m2 10/20/2013 Weight 149.00 lb Weight in kg's 67.586 BP Systolic 106 mmHg BP Diastolic 80 mmHg Heart Rate 76 /min Body Temperature 97.7 F 10/09/2013 Weight 150.00 lb Weight in kg's 68.040 BP Systolic 110 mmHg BP Diastolic 68 mmHg Heart Rate 68 /min 05/29/2013 Weight 151.00 lb Weight in kg's 68.494 BP Systolic 128 mmHg BP Diastolic 84 mmHg Heart Rate 104 /min Body Temperature 98.6 F O2 % BldC Oximetry 99 % level at rest 04/24/2013 Weight 154.00 lb Weight in kg's 69.854 BP Systolic 120 mmHg BP Diastolic 82 mmHg Heart Rate 84 /min Body Temperature 97.3 F 01/19/2013 Weight 154.00 lb Weight in kg's 69.854 BP Systolic 100 mmHg BP Diastolic 60 mmHg Heart Rate 80 /min Height 68.5 inches 5'8.50" BMI (Body Mass Index) 23.1 kg/m2 Last Menstrual Period [id number] 12/12/2012 Weight 153.00 lb Weight in kg's 69.401 BP Systolic 118 mmHg BP Diastolic 90 mmHg Heart Rate 68 /min Body Temperature 97.5 F Height 68.5 inches 5'8.50" BMI (Body Mass Index) 22.9 kg/m2 11/27/2012 Weight 154.00 lb Weight in kg's 69.854 BP Systolic 104 mmHg BP Diastolic 80 mmHg Heart Rate 80 /min Body Temperature 98.2 F O2 % BldC Oximetry 99 % level at rest 09/05/2012 Weight 156.00 lb Weight in kg's 70.762 BP Systolic 120 mmHg BP Diastolic 82 mmHg Heart Rate 72 /min Body Temperature 98.1 F 08/24/2011 Weight 161.00 lb Weight in kg's 73.030 BP Systolic 100 mmHg BP Diastolic 74 mmHg Heart Rate 72 /min Height 68.50 inches 5'8.50" BMI (Body Mass Index) 24.1 kg/m2 Last Menstrual Period [id number] 03/23/2011 Weight 175.00 lb Weight in kg's 79.380 BP Systolic 118 mmHg BP Diastolic 70 mmHg Heart Rate 68 /min Body Temperature 98.1 F 01/25/2010 Weight 156.00 lb Weight in kg's 70.762 BP Systolic 100 mmHg BP Diastolic 88 mmHg Heart Rate 76 /min Body Temperature 97.2 F 11/15/2009 Weight 155.00 lb Weight in kg's 70.308 BP Systolic 100 mmHg BP Diastolic 80 mmHg Heart Rate 72 /min Body Temperature 98.8 F 10/07/2009 Weight 155.00 lb Weight in kg's 70.308 BP Systolic 120 mmHg BP Diastolic 82 mmHg Heart Rate 84 /min 09/08/2009 Weight 156.00 lb Weight in kg's 70.762 BP Systolic 110 mmHg BP Diastolic 80 mmHg Heart Rate 72 /min 07/22/2009 Weight 159.00 lb Weight in kg's 72.122 BP Systolic 120 mmHg BP Diastolic 74 mmHg Heart Rate 80 /min 07/04/2009 Weight 159.00 lb Weight in kg's 72.122 BP Systolic 118 mmHg BP Diastolic 90 mmHg Heart Rate 72 /min 01/27/2009 Weight 158.00 lb Weight in kg's 71.669 BP Systolic 118 mmHg BP Diastolic 70 mmHg Heart Rate 68 /min Height 69 inches 5'9" BMI (Body Mass Index) 23.3 kg/m2 Last Menstrual Period [id number] 09/15/2008 Weight 149.00 lb Weight in kg's 67.586 BP Systolic 100 mmHg BP Diastolic 80 mmHg Heart Rate 84 /min Body Temperature 98.1 F 08/31/2008 Weight 153.00 lb Weight in kg's 69.401 BP Systolic 114 mmHg BP Diastolic 76 mmHg Heart Rate 78 /min Body Temperature 97.8 F 07/07/2008 Weight 158.00 lb Weight in kg's 71.669 BP Systolic 104 mmHg BP Diastolic 68 mmHg Heart Rate 76 /min Body Temperature 98.1 F 05/18/2008 Weight 154.00 lb Weight in kg's 69.854 BP Systolic 112 mmHg BP Diastolic 74 mmHg Heart Rate 80 /min Height 68 inches 5'8" BMI (Body Mass Index) 23.4 kg/m2 05/11/2008 Weight 156.00 lb Weight in kg's 70.762 BP Systolic 114 mmHg BP Diastolic 78 mmHg Heart Rate 76 /min Body Temperature 98.4 F Height 68.75 inches 5'8.75" BMI (Body Mass Index) 23.2 kg/m2 05/30/2007 Weight 161.00 lb Weight in kg's 73.030 BP Systolic 98 mmHg BP Diastolic 80 mmHg Heart Rate 76 /min Body Temperature 97.7 F Height 68.75 inches 5'8.75" BMI (Body Mass Index) 23.9 kg/m2 04/08/2007 Weight 156.00 lb Weight in kg's 70.762 BP Systolic 110 mmHg BP Diastolic 68 mmHg Heart Rate 62 /min Height 68.75 inches 5'8.75" BMI (Body Mass Index) 23.2 kg/m2 02/20/2007 Weight 161.00 lb Weight in kg's 73.030 BP Systolic 100 mmHg BP Diastolic 60 mmHg Heart Rate 74 /min Height 68.75 inches 5'8.75" BMI (Body Mass Index) 23.9 kg/m2 Results Test Date Test Result H/L Range Note Laboratory test finding 12/05/2017 TSH (Thyroid Stim Horm) <pending> T3 Total <pending> Free T4 (Free Thyroxine) <pending> Iron & Iron Binding Capacity 11/26/2017 Iron [...] 11-307 Vitamin B12 637 pg/mL 180-914 2 CBC Auto Diff 09/09/2017 White Blood Count 6.3 10^3/uL 3.5-10.8 Red Blood Count 4.65 10^6/uL 4.0-5.4 Hemoglobin 11.0 g/dL Low 12.0-16.0 Hematocrit 34 % Low 35-47 Mean Corpuscular Volume 73 fL Low 80-97 Mean Corpuscular Hemoglobin 24 pg Low 27-31 Mean Corpuscular HGB Conc 32 g/dL 31-36 Red Cell Distribution Width 18 % High 10.5-15 Platelet Count 278 10^3/uL 150-450 Mean Platelet Volume 8.0 um3 7.4-10.4 Abs Neutrophils 3.0 10^3/uL 1.5-7.7 Abs Lymphocytes 2.8 10^3/uL 1.0-4.8 Abs Monocytes 0.4 10^3/uL 0-0.8 Abs Eosinophils 0 10^3/uL 0-0.6 Abs Basophils 0 10^3/uL 0-0.2 Abs Nucleated RBC 0 10^3/uL Granulocyte % 48.2 % 38-83 Lymphocyte % 44.2 % 25-47 Monocyte % 6.7 % 0-7 Eosinophil % 0.3 % 0-6 Basophil % 0.6 % 0-2 Nucleated Red Blood Cells % 0 Laboratory test finding 09/09/2017 Magnesium 2.0 mg/dL 1.9-2.7 Lipase 25 U/L 11.0-82.0 C Reactive Protein < 1.00 mg/L < 5.00 3 Troponin-I (TnI) 0.00 ng/mL <0.04 Comp Metabolic Panel 09/09/2017 Sodium 136 mmol/L Low 139-145 Potassium 3.7 mmol/L 3.5-5.0 Chloride 103 mmol/L 101-111 Co2 Carbon Dioxide 24 mmol/L 22-32 Anion Gap 9 mmol/L 2-11 Glucose 75 mg/dL 70-100 Blood Urea Nitrogen 12 mg/dL 6-24 Creatinine 0.99 mg/dL High 0.51-0.95 BUN/Creatinine Ratio 12.1 8-20 Calcium 9.7 mg/dL 8.6-10.3 Total Protein 7.2 g/dL 6.4-8.9 Albumin 4.6 g/dL 3.2-5.2 Globulin 2.6 g/dL 2-4 Albumin/Globulin Ratio 1.8 1-3 Total Bilirubin 0.40 mg/dL 0.2-1.0 Alkaline Phosphatase 28 U/L Low 34-104 Alt 10 U/L 7-52 Ast 14 U/L 13-39 Egfr Non- 64.6 >60 Egfr 83.1 >60 4 Laboratory test finding 09/09/2017 Lactic Acid 0.9 mmol/L 0.5-2.0 5 Urinalysis Profile 09/09/2017 Urine Color Yellow Urine Appearance Clear Urine Specific Timber 1.013 1.010-1.030 Urine pH 6.0 5-9 Urine Urobilinogen Negative Negative Urine Ketones 1+ Negative Urine Protein Negative Negative Urine Leukocytes Negative Negative Urine Blood Negative Negative Urine Nitrite Negative Negative Urine Bilirubin Negative Negative Urine Glucose Negative Negative Laboratory test finding 08/08/2017 Lipase 44 U/L 11.0-82.0 Creatine Kinase 52 U/L 10-223 C Reactive Protein < 1.00 mg/L < 5.00 6 TSH (Thyroid Stimulating Horm) 0.71 mcIU/mL 0.34-5.60 Magnesium 2.1 mg/dL 1.9-2.7 Comp Metabolic Panel 08/08/2017 Sodium 137 mmol/L 133-145 Potassium 3.4 mmol/L Low 3.5-5.0 Chloride 105 mmol/L 101-111 Co2 Carbon Dioxide 25 mmol/L 22-32 Anion Gap 7 mmol/L 2-11 Glucose 104 mg/dL High 70-100 Blood Urea Nitrogen 12 mg/dL 6-24 Creatinine 0.86 mg/dL 0.51-0.95 BUN/Creatinine Ratio 14.0 8-20 Calcium 9.3 mg/dL 8.6-10.3 Total Protein 6.9 g/dL 6.4-8.9 Albumin 4.3 g/dL 3.2-5.2 Globulin 2.6 g/dL 2-4 Albumin/Globulin Ratio 1.7 1-3 Total Bilirubin 0.30 mg/dL 0.2-1.0 Alkaline Phosphatase 35 U/L 34-104 Alt 10 U/L 7-52 Ast 16 U/L 13-39 Egfr Non- 76.0 >60 Egfr 97.7 >60 7 Laboratory test finding 08/08/2017 HCG < 0.60 mIU/mL 8 CKMB 08/08/2017 CKMB ng/mL 0.7 ng/mL 0.6-6.3 Laboratory test finding 08/08/2017 Partial Thrombo Time 27.5 seconds 26.0 -36.3 PTT D Dimer Quantitative < 200 ng/mL Less Than 230 9 B-Type Natriuretic Peptide BNP 47 pg/mL 10 Lactic Acid 1.1 mmol/L 0.5-2.0 11 Troponin-I (TnI) 0.00 ng/mL <0.04 Inr/Protime 08/08/2017 Inr 0.95 0.77-1.02 CBC Auto Diff 08/08/2017 White Blood Count 6.0 10^3/uL 3.5-10.8 Red Blood Count 4.69 10^6/uL 4.0-5.4 Hemoglobin 10.9 g/dL Low 12.0-16.0 Hematocrit 34 % Low 35-47 Mean Corpuscular Volume 72 fL Low 80-97 12 Mean Corpuscular Hemoglobin 23 pg Low 27-31 Mean Corpuscular HGB Conc 32 g/dL 31-36 Red Cell Distribution Width 18 % High 10.5-15 Platelet Count 347 10^3/uL 150-450 Mean Platelet Volume 8 um3 7.4-10.4 Abs Neutrophils 3.3 10^3/uL 1.5-7.7 Abs Lymphocytes 2.3 10^3/uL 1.0-4.8 Abs Monocytes 0.4 10^3/uL 0-0.8 Abs Eosinophils 0 10^3/uL 0-0.6 Abs Basophils 0 10^3/uL 0-0.2 Abs Nucleated RBC 0 10^3/uL Granulocyte % 54.4 % 38-83 Lymphocyte % 37.6 % 25-47 Monocyte % 6.9 % 0-7 Eosinophil % 0.4 % 0-6 Basophil % 0.7 % 0-2 Nucleated Red Blood Cells % 0 Laboratory test 08/08/2017 Troponin-I (TnI) 0.00 ng/mL <0.04 finding Laboratory test 07/25/2017 Surgical Pathology SEE RESULT BELOW 13, 14 finding Laboratory test 07/08/2017 Gardnerella/Yeast: SEE RESULT BELOW 15, 16 finding Vaginal Dna Laboratory test 06/05/2017 Urine Culture SEE RESULT BELOW 17, 18 finding Urine DIP 06/05/2017 Leukocytes neg Neg Urine Nitrites neg Neg Urobilinogen norm Norm Total Protein, Urine trace Neg Urine pH 5 5-6 Urine Blood about 250 Neg Specific Timber 1.020 1.01-1.02 Urine Ketones neg Neg Urine Bilirubin neg Neg Urine Glucose norm Norm CBC Auto Diff 05/09/2017 White Blood Count 5.9 10^3/uL 3.5-10.8 19 Red Blood Count 4.57 10^6/uL 4.0-5.4 19 Hemoglobin 10.3 g/dL Low 12.0-16.0 19 Hematocrit 33 % Low 35-47 19 Mean Corpuscular Volume 72 fL Low 80-97 19, 20 Mean Corpuscular Hemoglobin 23 pg Low 27-31 19 Mean Corpuscular HGB Conc 31 g/dL 31-36 19 Red Cell Distribution Width 17 % High 10.5-15 19 Platelet Count 308 10^3/uL 150-450 19 Mean Platelet Volume 8 um3 7.4-10.4 19 Abs Neutrophils 3.9 10^3/uL 1.5-7.7 19 Abs Lymphocytes 1.6 10^3/uL 1.0-4.8 19 Abs Monocytes 0.4 10^3/uL 0-0.8 19 Abs Eosinophils 0 10^3/uL 0-0.6 19 Abs Basophils 0 10^3/uL 0-0.2 19 Abs Nucleated RBC 0.01 10^3/uL 19 Granulocyte % 65.7 % 38-83 19 Lymphocyte % 27.5 % 25-47 19 Monocyte % 6.3 % 1-9 19 Eosinophil % 0.1 % 0-6 19 Basophil % 0.4 % 0-2 19 Nucleated Red Blood Cells % 0.1 19 Laboratory test finding 05/09/2017 Ferritin < 10.0 ng/mL Low 11-307 19, 21 Iron & Iron Binding Capacity 05/09/2017 Iron 20 g/dL Low 50-212 19 Unsaturated Iron Binding 441 g/dL 19 Total Iron Binding Capacity 461 g/dL High 250-450 19 % Iron Saturation 4 % Low 15-55 19 Iron & Iron Binding Capacity 04/09/2017 Iron 16 g/dL Low 50-212 22 Unsaturated Iron Binding 475 g/dL 22 Total Iron Binding Capacity 491 g/dL High 250-450 22 % Iron Saturation 3 % Low 15-55 22 CBC Auto Diff 04/09/2017 White Blood Count 5.4 10^3/uL 3.5-10.8 22 Red Blood Count 4.81 10^6/uL 4.0-5.4 22 Hemoglobin 10.9 g/dL Low 12.0-16.0 22 Hematocrit 35 % 35-47 22 Mean Corpuscular Volume 73 fL Low 80-97 22, 23 Mean Corpuscular Hemoglobin 23 pg Low 27-31 22 Mean Corpuscular HGB Conc 31 g/dL 31-36 22 Red Cell Distribution Width 17 % High 10.5-15 22 Platelet Count 337 10^3/uL 150-450 22 Mean Platelet Volume 8 um3 7.4-10.4 22 Abs Neutrophils 2.9 10^3/uL 1.5-7.7 22 Abs Lymphocytes 2.2 10^3/uL 1.0-4.8 22 Abs Monocytes 0.3 10^3/uL 0-0.8 22 Abs Eosinophils 0 10^3/uL 0-0.6 22 Abs Basophils 0 10^3/uL 0-0.2 22 Abs Nucleated RBC 0 10^3/uL 22 Granulocyte % 53.1 % 38-83 22 Lymphocyte % 40.1 % 25-47 22 Monocyte % 5.9 % 1-9 22 Eosinophil % 0.5 % 0-6 22 Basophil % 0.4 % 0-2 22 Nucleated Red Blood Cells % 0 22 Laboratory test 04/09/2017 Ferritin < 10.0 ng/mL Low 11-307 22, 24 finding Laboratory test 04/04/2017 Troponin-I (TnI) 0.18 ng/mL High <0.04 25 finding CBC Auto Diff 04/04/2017 White Blood Count 7.0 10^3/uL 3.5-10.8 Red Blood Count 4.68 10^6/uL 4.0-5.4 Hemoglobin 10.8 g/dL Low 12.0-16.0 Hematocrit 34 % Low 35-47 Mean Corpuscular Volume 72 fL Low 80-97 26 Mean Corpuscular Hemoglobin 23 pg Low 27-31 Mean Corpuscular HGB Conc 32 g/dL 31-36 Red Cell Distribution Width 17 % High 10.5-15 Platelet Count 321 10^3/uL 150-450 Mean Platelet Volume 8 um3 7.4-10.4 Abs Neutrophils 3.7 10^3/uL 1.5-7.7 Abs Lymphocytes 2.7 10^3/uL 1.0-4.8 Abs Monocytes 0.4 10^3/uL 0-0.8 Abs Eosinophils 0 10^3/uL 0-0.6 Abs Basophils 0 10^3/uL 0-0.2 Abs Nucleated RBC 0 10^3/uL Granulocyte % 53.7 % 38-83 Lymphocyte % 39.0 % 25-47 Monocyte % 6.4 % 1-9 Eosinophil % 0.2 % 0-6 Basophil % 0.7 % 0-2 Nucleated Red Blood Cells % 0 Comp Metabolic Panel 04/04/2017 Sodium 135 mmol/L 133-145 Potassium 3.8 mmol/L 3.5-5.0 Chloride 105 mmol/L 101-111 Co2 Carbon Dioxide 22 mmol/L 22-32 Anion Gap 8 mmol/L 2-11 Glucose 83 mg/dL 70-100 Blood Urea Nitrogen 17 mg/dL 6-24 Creatinine 0.88 mg/dL 0.51-0.95 BUN/Creatinine Ratio 19.3 8-20 Calcium 9.4 mg/dL 8.6-10.3 Total Protein 7.2 g/dL 6.4-8.9 Albumin 4.3 g/dL 3.2-5.2 Globulin 2.9 g/dL 2-4 Albumin/Globulin Ratio 1.5 1-3 Total Bilirubin 0.30 mg/dL 0.2-1.0 Alkaline Phosphatase 32 U/L Low 34-104 Alt 9 U/L 7-52 Ast 14 U/L 13-39 Egfr Non- 74.0 >60 Egfr 95.2 >60 27 Laboratory test finding 04/04/2017 Troponin-I (TnI) 0.03 ng/mL <0.04 HCG < 0.60 mIU/mL 28 Magnesium 2.0 mg/dL 1.9-2.7 TSH (Thyroid Stimulating Horm) 0.69 mcIU/mL 0.34-5.60 Flu Test A, B, Or A & B,Binaxn 07/21/2016 Influenza A Antigen neg Influenza B Antigen neg Laboratory test finding 07/21/2016 Strep Screen neg Neg Lipid Profile (Trig/Chol/HDL) 04/05/2016 Triglycerides 69 mg/dL 29, 30 Cholesterol 171 mg/dL 29, 31 HDL Cholesterol 65.7 mg/dL 29, 32 LDL Cholesterol 92 mg/dL 29, 33 CBC Auto Diff 04/05/2016 White Blood Count 6.6 10^3/uL 3.5-10.8 29 Red Blood Count 4.62 10^6/uL 4.0-5.4 29 Hemoglobin 10.5 g/dL Low 12.0-16.0 29 Hematocrit 34 % Low 35-47 29 Mean Corpuscular Volume 74 fL Low 80-97 29, 34 Mean Corpuscular Hemoglobin 23 pg Low 27-31 29 Mean Corpuscular HGB Conc 31 g/dL 31-36 29 Red Cell Distribution Width 17 % High 10.5-15 29 Platelet Count 284 10^3/uL 150-450 29 Mean Platelet Volume 9 um3 7.4-10.4 29 Abs Neutrophils 3.0 10^3/uL 1.5-7.7 29 Abs Lymphocytes 2.9 10^3/uL 1.0-4.8 29 Abs Monocytes 0.6 10^3/uL 0-0.8 29 Abs Eosinophils 0.1 10^3/uL 0-0.6 29 Abs Basophils 0 10^3/uL 0-0.2 29 Abs Nucleated RBC 0.01 10^3/uL 29 Granulocyte % 45.7 % 38-83 29 Lymphocyte % 44.3 % 25-47 29 Monocyte % 8.7 % 1-9 29 Eosinophil % 0.8 % 0-6 29 Basophil % 0.5 % 0-2 29 Nucleated Red Blood Cells % 0.1 29 Laboratory test 12/16/2015 (HCG) Negative Negative 35 finding Urine Laboratory test 11/11/2015 Urine Culture SEE RESULT BELOW 36, 37 finding Urine DIP 11/11/2015 Leukocytes neg Neg Urine Nitrites neg Neg Urobilinogen norm Norm Total Protein, Urine trace Neg Urine pH 6 5-6 Urine Blood ++ Neg Specific [place] 1.025 High 1.01-1.02 Urine Ketones neg Neg Urine Bilirubin neg Neg Urine Glucose norm Norm Urinalysis Profile 11/11/2015 Urine Color Yellow 36 Urine Appearance Cloudy 36 Urine Specific Timber 1.024 1.010-1.030 36 Urine pH 6.0 5-9 36 Urine Urobilinogen Negative Negative 36 Urine Ketones Negative Negative 36 Urine Protein Negative Negative 36 Urine Leukocytes Negative Negative 36 Urine Blood 2+ Negative 36 Urine Nitrite Negative Negative 36 Urine Bilirubin Negative Negative 36 Urine Glucose Negative Negative 36 Urine White Blood Cell Absent Absent 36 Urine Red Blood Cell 3+(>10/hpf) Absent 36 Urine Bacteria Absent Absent 36 Urine Squamous Epithelial Cell Present Absent 36 Laboratory test finding 08/16/2015 Rapid Strep Molecular Negative Negative 38 Throat-Beta Strept SEE RESULT BELOW 39 Flu Test A, B, Or A & B,Binaxn 07/30/2015 Influenza A Antigen NEG Influenza B Antigen NEG Laboratory test finding 07/30/2015 Strep Screen POS Neg Urinalysis Profile 06/11/2015 Urine Color Yellow Urine Appearance Cloudy Urine Specific Timber 1.036 High 1.010-1.030 Urine pH 5.0 5-9 Urine Urobilinogen Negative Negative Urine Ketones Trace Negative Urine Protein 1+(30 mg/dL) Negative Urine Leukocytes Negative Negative Urine Blood 2+ Negative Urine Nitrite Negative Negative Urine Bilirubin Negative Negative Urine Glucose Negative Negative Urine White Blood Cell Absent Absent Urine Red Blood Cell 3+(>10/hpf) Absent Urine Bacteria Absent Absent Urine Squamous Epithelial Cell Present Absent Laboratory test finding 05/31/2015 Erythrocyte Sed Rate 7 mm/Hr 0-14 Rheumatoid Factor <15 IU/mL <15 40 Cyclic Citrullinated Pept IgG <15.6 U 41 Uric Acid 3.5 mg/dL 2.3-6.6 Comp Metabolic Panel 05/31/2015 Sodium 137 mmol/L 133-145 Potassium 4.3 mmol/L 3.5-5.0 Chloride 106 mmol/L 101-111 Co2 Carbon Dioxide 26 mmol/L 22-32 Anion Gap 5 mmol/L 2-11 Glucose 94 mg/dL 70-100 Blood Urea Nitrogen 18 mg/dL 6-24 Creatinine 0.91 mg/dL 0.51-0.95 BUN/Creatinine Ratio 19.8 8-20 Calcium 9.6 mg/dL 8.6-10.3 Total Protein 6.8 g/dL 6.4-8.9 Albumin 4.2 g/dL 3.2-5.2 Globulin 2.6 g/dL 2-4 Albumin/Globulin Ratio 1.6 1-3 Total Bilirubin 0.30 mg/dL 0.2-1.0 Alkaline Phosphatase 44 U/L 34-104 Alt 9 U/L 7-52 Ast 13 U/L 13-39 Egfr Non- 72.1 >60 Egfr 92.7 >60 42 CBC Auto Diff 05/31/2015 White Blood Count 6.6 10^3/uL 3.5-10.8 Red Blood Count 4.76 10^6/uL 4.0-5.4 Hemoglobin 10.6 g/dL Low 12.0-16.0 Hematocrit 34 % Low 35-47 Mean Corpuscular Volume 72 fL Low 80-97 43 Mean Corpuscular Hemoglobin 22 pg Low 27-31 Mean Corpuscular HGB Conc 31 g/dL 31-36 Red Cell Distribution Width 18 % High 10.5-15 Platelet Count 364 10^3/uL 150-450 Mean Platelet Volume 8 um3 7.4-10.4 Abs Neutrophils 3.5 10^3/uL 1.5-7.7 Abs Lymphocytes 2.1 10^3/uL 1.0-4.8 Abs Monocytes 0.4 10^3/uL 0-0.8 Abs Eosinophils 0.5 10^3/uL 0-0.6 Abs Basophils 0 10^3/uL 0-0.2 Abs Nucleated RBC 0 10^3/uL Granulocyte % 52.9 % 38-83 Lymphocyte % 32.3 % 25-47 Monocyte % 5.9 % 1-9 Eosinophil % 8.3 % High 0-6 Basophil % 0.6 % 0-2 Nucleated Red Blood Cells % 0 Laboratory test finding 05/02/2015 Urine Culture SEE RESULT BELOW 44 Urinalysis Profile 05/02/2015 Urine Color Yellow Urine Appearance Clear Urine Specific Tim[place] 1.024 1.010-1.030 Urine pH 5.0 5-9 Urine Urobilinogen Negative Negative Urine Ketones Negative Negative Urine Protein Negative Negative Urine Leukocytes Negative Negative Urine Blood Negative Negative Urine Nitrite Negative Negative Urine Bilirubin Negative Negative Urine Glucose Negative Negative Laboratory test finding 04/01/2015 HPV Rna Ww/Reflex Genotype Negative Negative 45 Cytology SEE RESULT BELOW 46 Laboratory test 04/01/2015 Hemoccult Digital NEG finding Sing Spec Laboratory test 11/11/2014 Clotest SEE RESULT BELOW 47 finding CBC Auto Diff 08/30/2014 White Blood Count 5.9 10^3/uL 4.8-10.8 Red Blood Count 4.71 10^6/uL 4.0-5.4 Hemoglobin 13.3 g/dL 12.0-16.0 Hematocrit 40 % 35-47 Mean Corpuscular Volume 86 fL 80-97 Mean Corpuscular Hemoglobin 28 pg 27-31 Mean Corpuscular HGB Conc 33 g/dL 31-36 Red Cell Distribution Width 14 % 10.5-15 Platelet Count 298 10^3/uL 150-450 Mean Platelet Volume 9 um3 7.4-10.4 Abs Neutrophils 3.0 10^3/uL 1.5-7.7 Abs Lymphocytes 2.4 10^3/uL 1.0-4.8 Abs Monocytes 0.3 10^3/uL 0-0.8 Abs Eosinophils 0.1 10^3/uL 0-0.6 Abs Basophils 0 10^3/uL 0-0.2 Abs Nucleated RBC 0.02 10^3/uL Granulocyte % 51.3 % 38-83 Lymphocyte % 40.7 % 25-47 Monocyte % 5.7 % 1-9 Eosinophil % 1.6 % 0-6 Basophil % 0.7 % 0-2 Nucleated Red Blood Cells % 0.3 Laboratory test finding 08/30/2014 Erythrocyte Sed Rate 7 mm/Hr 0-14 CRP High Sensitivity 1.58 mg/L 48 Laboratory test finding 05/13/2014 TSH (Thyroid Stimulating 2.03 IU/mL 0.34-5.60 Horm) Urine DIP 03/12/2014 Specific [place] 1.015 1.01-1.02 Urine pH 5 5-6 Leukocytes TRACE Neg Urine Nitrites NEG Neg Total Protein, Urine NEG Neg Urine Glucose NORM Norm Urine Ketones NEG Neg Urobilinogen NORM Norm Urine Bilirubin NEG Neg Urine Blood 250 MENSE High Neg CBC Auto Diff 02/18/2014 White Blood Count 4.8 10^3/uL 4.8-10.8 Red Blood Count 4.65 10^6/uL 4.0-5.4 Hemoglobin 13.7 g/dL 12.0-16.0 Hematocrit 40 % 35-47 Mean Corpuscular Volume 86 fL 80-97 Mean Corpuscular Hemoglobin 29 pg 27-31 Mean Corpuscular HGB Conc 34 g/dL 31-36 Red Cell Distribution Width 14 % 10.5-15 Platelet Count 257 10^3/uL 150-450 Mean Platelet Volume 8 um3 7.4-10.4 Abs Neutrophils 2.8 10^3/uL 1.5-7.7 Abs Lymphocytes 1.6 10^3/uL 1.0-4.8 Abs Monocytes 0.3 10^3/uL 0-0.8 Abs Eosinophils 0 10^3/uL 0-0.6 Abs Basophils 0 10^3/uL 0-0.2 Abs Nucleated RBC 0 10^3/uL Granulocyte % 58.4 % 38-83 Lymphocyte % 33.9 % 25-47 Monocyte % 6.9 % 1-9 Eosinophil % 0.4 % 0-6 Basophil % 0.4 % 0-2 Nucleated Red Blood Cells % 0 Comp Metabolic Panel 02/18/2014 Sodium 137 mmol/L 133-145 Potassium 4.2 mmol/L 3.7-5.6 Chloride 103 mmol/L 101-111 Co2 Carbon Dioxide 29 mmol/L 22-32 Anion Gap 5 mmol/L 2-11 Glucose 93 mg/dL 70-100 Blood Urea Nitrogen 11 mg/dL 6-24 Creatinine 0.78 mg/dL 0.51-0.95 BUN/Creatinine Ratio 14.1 8-20 Calcium 9.5 mg/dL 8.6-10.3 Total Protein 6.9 g/dL 6.4-8.9 Albumin 4.5 g/dL 3.2-5.2 Globulin 2.4 g/dL 2-4 Albumin/Globulin Ratio 1.9 1-3 Total Bilirubin 0.50 mg/dL 0.2-1.0 Alkaline Phosphatase 36 U/L 34-104 Alt 15 U/L 7-52 Ast 15 U/L 13-39 Egfr Non- 86.7 >60 Egfr 111.5 >60 49 Laboratory test finding 02/18/2014 C Reactive Protein < 0.10 mg/L < 5.00 50 Affirm Vaginal Dna Probe 02/18/2014 Affirm Vaginal Dna (SEE NOTE) 51 Probe GC/Chlamydia Amplified 02/18/2014 GC/Chlamydia Rna (SEE NOTE) 52 Rna Urine Culture And 02/18/2014 Urine Culture (SEE NOTE) 53 Sensitivities Urine Culture And 10/09/2013 Urine Culture (SEE NOTE) 54 Sensitivities Urine DIP 10/09/2013 Specific [place] 1.025 High 1.01-1.02 Urine pH 6 5-6 Leukocytes TRACE Neg Urine Nitrites NEG Neg Total Protein, Urine NEG Neg Urine Glucose NORM Norm Urine Ketones NEG Neg Urobilinogen NORM Norm Urine Bilirubin NEG Neg Urine Blood 50 High Neg Lipid Profile (Trig/Chol/HDL) 01/19/2013 Triglycerides 115 mg/dL 40-200 Cholesterol 166 mg/dL Less than 200 HDL Cholesterol 59 mg/dL 40-60 55 Cholesterol/HDL Ratio 2.8 Average 1-4.44 LDL Cholesterol 84.0 Less Than 100 56 Urine DIP 01/19/2013 Leukocytes NEG Neg Urine Nitrites NEG Neg Urine pH 5 5-6 Total Protein, Urine NEG Neg Urine Glucose NORM Norm Urine Ketones NEG Neg Urobilinogen NORM Norm Urine Bilirubin NEG Neg Urine Blood TRACE Neg Specific [place] N/A Low 1.01-1.02 Laboratory test finding 01/19/2013 Cytology RUN DATE: 01/20/ <SEE 57 NOTE> Urine Culture And 12/12/2012 Urine Culture (SEE NOTE) 58 Sensitivities Urine DIP 12/12/2012 Leukocytes trace Neg Urine Nitrites neg Neg Urine pH 5 5-6 Total Protein, Urine neg Neg Urine Glucose norm Norm Urine Ketones neg Neg Urobilinogen norm Norm Urine Bilirubin neg Neg Urine Blood trace Neg Specific [place] 1.015 1.01-1.02 Urinalysis 2012 Urine Color Yellow Urine Appearance Clear Urine Specific [place] 1.022 1.010-1.030 Urine Esterase 1+ Negative Urine Nitrate Negative Negative Urine Urobilinogen Negative E.U./dL Negative Urine Protein Negative mg/dL Negative Urine pH 7.5 5-9 Urine Blood Negative Negative Urine Ketones Negative mg/dL Negative Urine Bilirubin Negative Negative Urine Glucose Negative mg/dL Negative Urine Microscopic 2012 Urine WBC 1+ (<10 /hpf) None Seen Urine RBC None Seen None Seen Urine Epithelial Cells 1+ Squamous /hpf None Seen Urine Culture And 2012 Urine Culture (SEE NOTE) 59 Sensitivities CBC Auto Diff 2012 White Blood Count 17.4 10^3/uL High 4.8-10.8 Red Blood Count 5.04 10^6/uL 4.0-5.4 Hemoglobin 14.4 g/dL 12.0-16.0 Hematocrit 43 % 35-47 Mean Corpuscular Volume 85 fL 80-97 Mean Corpuscular Hemoglobin 29 pg 27-31 Mean Corpuscular HGB Conc 34 g/dL 31-36 Red Cell Distribution Width 14 % 10.5-15 Platelet Count 290 10^3/uL 150-450 Mean Platelet Volume 8 um3 7.4-10.4 Abs Neutrophils 13.3 10^3/uL High 1.5-7.7 Abs Lymphocytes 2.8 10^3/uL 1.0-4.8 Abs Monocytes 1.1 10^3/uL High 0-0.8 Abs Eosinophils 0.1 10^3/uL 0-0.6 Abs Basophils 0.1 10^3/uL 0-0.2 Abs Nucleated RBC 0 10^3/uL Granulocyte % 76.4 % 38-83 Lymphocyte % 16.1 % Low 25-47 Monocyte % 6.3 % 1-9 Eosinophil % 0.8 % 0-6 Basophil % 0.4 % 0-2 Nucleated Red Blood Cells % 0 Comp Metabolic Panel 2012 Sodium 140 mmol/L 133-145 Potassium 3.5 mmol/L 3.5-5.0 Chloride 107 mmol/L 101-111 Co2 Carbon Dioxide 26.0 mmol/L 22-32 Anion Gap 7.0 mmol/L 2-11 Glucose 91 mg/dL 70-100 Blood Urea Nitrogen 24 mg/dL 6-24 Creatinine 0.80 mg/dL 0.50-1.40 BUN/Creatinine Ratio 30.0 High 8-20 Calcium 9.5 mg/dL 8.1-9.9 Total Protein 7.4 g/dL 6.2-8.1 Albumin 4.1 g/dL 3.6-5.4 Globulin 3.3 g/dL 2-4 Albumin/Globulin Ratio 1.2 1-3 Total Bilirubin 0.5 mg/dL 0.4-1.5 Alkaline Phosphatase 48 U/L 30-110 Alt 18 U/L 14-54 Ast 19 U/L 12-42 Egfr Non- 84.8 >60 Egfr 109.1 >60 60 Laboratory test finding 2012 Lipase 29 U/L 22-51 C Reactive Protein 0.7 mg/dL High Less than 0.5 Urine DIP 08/24/2011 Leukocytes + Neg Urine Nitrites NEG Neg Urine pH 5 5-6 Total Protein, Urine NEG Neg Urine Glucose NORM Norm Urine Ketones NEG Neg Urobilinogen NORM Norm Urine Bilirubin NEG Neg Urine Blood NEG Neg Specific [place] N/A Low 1.01-1.02 Laboratory test finding 08/24/2011 Cytology <SEE NOTE> 61 Urinalysis 06/18/2010 Ua Color YELLOW Yellow Appearance-Urine CLEAR Clear Specific Timber-Ur 1.016 1.010-1.030 Esterase-Urine NEGATIVE Negative Nitrite NEGATIVE Negative [id number] NEGATIVE Negative Protein-Urine NEGATIVE Negative PH-Urine 6.0 5-9 Blood-Urine NEGATIVE Negative Ketones-Urine NEGATIVE Negative Bilirubin-Ur NEGATIVE Negative Glucose-Urine NEGATIVE Negative Laboratory test finding 06/18/2010 BHCG Quantitative 68816.0 MIU/ML High 0 -5 62 Basic Metabolic Panel 06/18/2010 Sodium 134 mmol/L Low 135-145 Potassium 3.6 mmol/L 3.5-5.0 Chloride 101 mmol/L 101-111 Co2 (Carbon Dioxide) 24.0 mmol/L 22-32 Anion Gap 9.0 mmol/L 2-11 63 Glucose 76 mg/dL 70-100 BUN 12 mg/dL 6-24 Creatinine 0.55 mg/dL 0.50-1.40 One Over Creatinine 1.80 BUN/Creatinine Ratio 21.8 High 8-20 Calcium 9.1 mg/dL 8.1-9.9 eGFR Non- 142.0 > 60 eGFR 171.8 > 60 64 CBC With Manual Diff 06/18/2010 White Blood Count 9.6 CUMM 4.8-10.8 Red Cell Count 4.29 CUMM 4.2-5.4 Hemoglobin 12.9 g/dL 12.0-16.0 Hematocrit 37 % 35-47 Mean Corpuscular Volume 85 um3 79-97 Mean Corpuscular Hemoglob 30 pg 27-31 Mean Corpuscular HGB Cone 35 g/dL 32-36 Redcell Distribution WDTH 14 % 10.5-15 Platelet Count 286 CUMM 150-450 Mean Platelet Volume 6.4 um3 Low 7.4-10.4 Polysegmented Neutrophil 78 % 38-83 Lymphocyte 16 % Low 25-47 Monocyte 6 % 0-13 Absolute Neutrophil Count 7.4 RBC Morphology NORMAL Surgical Pathology 02/23/2010 Surgical Pathology <SEE 65 NOTE> Laboratory test 02/23/2010 Clotest NEGATIVE finding Stool Panel (CMC) 01/25/2010 Fecal Lactoferrin NF 66 (Stool WBC) O P: Giardia/Crypto Screen BROWN 67 Stool Culture NF 68 Stool For Blood 01/25/2010 Stool For Blood NEGATIVE Negative Stool Color BROWN Stool Form SEMI-FORMED Stool Consistency SOFT Laboratory test finding 01/25/2010 Stool Cult Sensitivity NF 69 Shiga Toxin 1 And 2 (Ehec) NEGATIVE BY IMMU <SEE NOTE> 70 CBC With Electronic Diff 01/25/2010 White Blood Count 6.3 CUMM 4.8-10.8 Red Cell Count 5.05 CUMM 4.2-5.4 Hemoglobin 14.9 g/dL 12.0-16.0 Hematocrit 44 % 35-47 Mean Corpuscular Volume 87 um3 79-97 Mean Corpuscular Hemoglob 30 pg 27-31 Mean Corpuscular HGB Cone 34 g/dL 32-36 Redcell Distribution WDTH 14 % 10.5-15 Platelet Count 321 CUMM 150-450 Mean Platelet Volume 7.2 um3 Low 7.4-10.4 Gran % 63.3 % 38-83 Lymph % 31.2 % 25-47 Mononuclear % 4.8 % 1-9 Eosinophil % 0.4 % 0-6 Basophil % 0.3 % 0-2 Abs Lymphs 2.0 1.0-4.8 Abs Mononuclear 0.3 0-0.8 Absolute Neutrophil Count 4.0 1.5-7.7 Abs Eosinophils 0 0-0.6 Abs Basophils 0 0-0.2 Laboratory test finding 01/25/2010 Erythrocyte Sed Rate 3 MM/HR 0-15 Comp Metabolic Panel 01/25/2010 Sodium 138 mmol/L 135-145 Potassium 4.6 mmol/L 3.5-5.0 Chloride 104 mmol/L 101-111 Co2 (Carbon Dioxide) 25.0 mmol/L 22-32 Anion Gap 9.0 mmol/L 2-11 71 Glucose 77 mg/dL 70-100 72 BUN 13 mg/dL 6-24 Creatinine 0.90 mg/dL 0.50-1.40 One Over Creatinine 1.10 BUN/Creatinine Ratio 14.4 8-20 Calcium 9.4 mg/dL 8.1-9.9 73 Total Protein 7.1 GM/DL 6.2-8.1 Albumin 4.4 GM/DL 3.6-5.4 Globulin 2.7 GM/DL 2-4 Albumin/Globulin Ratio 1.6 1-3 Bilirubin Total 0.7 mg/dL 0.4-1.5 74 Alkaline Phosphatase 46 U/L 30-110 Alt (SGPT) 15 U/L 14-54 Ast (Sgot) 18 U/L 12-42 eGFR Non- 80.4 > 60 eGFR 97.3 > 60 75 Laboratory test finding 01/25/2010 Endomysial Abs Negative Negative 76 Transglutaminase Iga Autoab <1.2 U/mL <4.0 77 GC/Chlamydia Dna Probe 12/02/2009 GC By Aptima NEGATIVE Negative 78 CHL By Aptima NEGATIVE Negative 79 Laboratory test finding 11/15/2009 HCG DIP Test NEG Neg Urine DIP 11/15/2009 Leukocytes NEG Neg Urine Nitrites NEG Neg Urine pH 6-7 5-6 Total Protein, Urine NEG Neg Urine Glucose NORM Norm Urine Ketones NEG Neg Urobilinogen NORM Norm Urine Bilirubin NEG Neg Urine Blood NEG Neg Specific [place] NA Low 1.01-1.02 Laboratory test finding 07/04/2009 Urine Culture Sensitivi NG 80 Urine DIP 07/04/2009 Leukocytes TRACE Neg Urine Nitrites NEG Neg Urine pH 5 5-6 Total Protein, Urine NEG Neg Urine Glucose NORM Norm Urine Ketones NEG Neg Urobilinogen NORM Norm Urine Bilirubin NEG Neg Urine Blood TRACE Neg Specific [place] N/A Low 1.01-1.02 Laboratory test finding 01/27/2009 Cytology <SEE NOTE> 81 Urine DIP 05/11/2008 Leukocytes neg Neg Urine Nitrites neg Neg Urine pH 6-7 5-6 Total Protein, Urine neg Neg Urine Glucose norm Norm Urine Ketones neg Neg Urobilinogen norm Norm Urine Bilirubin neg Neg Urine Blood about 250 Neg Specific Timber n/a Low 1.01-1.02 Urine DIP 05/30/2007 Leukocytes trace Neg Urine Nitrites neg Neg Urine pH 5 5-6 Total Protein, Urine neg Neg Urine Glucose norm Norm Urine Ketones neg Neg Urobilinogen norm Norm Urine Bilirubin neg Neg Urine Blood neg Neg Specific Tim[place] n/a Low 1.01-1.02 1 Consistent with Previous Results Reported on 09/09/17 2 Normal Range 180 to 914 Indeterminate Range 145 to 180 Deficient Range <145 3 Acute inflammation: >10.00 4 Because ethnic data is not always readily available, this report includes an eGFR for both -Americans and non- Americans. The National Kidney Disease Education Program (NKDEP) does not endorse the use of the MDRD equation for patients that are not between the ages of 18 and 70, are , have extremes of body size, muscle mass, or nutritional status, or are non- or non-. According to the National Kidney Foundation, irrespective of diagnosis, the stage of the disease is based on the level of kidney function: Stage Description GFR(mL/min/1.73 m(2)) 1 Kidney damage with normal or decreased GFR 90 2 Kidney damage with mild decrease in GFR 60-89 3 Moderate decrease in GFR 30-59 4 Severe decrease in GFR 15-29 5 Kidney failure <15 (or dialysis) 5 [facility] Severe Sepsis and Septic Shock Management Bundle Measure requires all lactic acids initially measuring >2.0 mmol/L be repeated. 6 Acute inflammation: >10.00 7 Because ethnic data is not always readily available, this report includes an eGFR for both -Americans and non- Americans. The National Kidney Disease Education Program (NKDEP) does not endorse the use of the MDRD equation for patients that are not between the ages of 18 and 70, are , have extremes of body size, muscle mass, or nutritional status, or are non- or non-. According to the National Kidney Foundation, irrespective of diagnosis, the stage of the disease is based on the level of kidney function: Stage Description GFR(mL/min/1.73 m(2)) 1 Kidney damage with normal or decreased GFR 90 2 Kidney damage with mild decrease in GFR 60-89 3 Moderate decrease in GFR 30-59 4 Severe decrease in GFR 15-29 5 Kidney failure <15 (or dialysis) 8 <5.0 Negative 5.0 - 25.0 Indeterminate (Repeat testing recommended after 72 hours) >25.0 Positive Perimenopausal women can display HCG levels of up to 20 mIU/mL 9 Please note: The following may produce a false positive D Dimer test: - Rheumatoid factor greater than 60 IU/ml - Plasma hemoglobin greater than 0.05 gm/dl - Bilirubin greater than 50 mg/dl - Lipids greater than 1000 mg/dl - FDP greater than 20 ug/ml 10 >100 to <200 pg/mL: likely compensated congestive heart failure (CHF) 200 to 400 pg/mL: likely moderate CHF >400 pg/mL: likely moderate to severe CHF 11 [facility] Severe Sepsis and Septic Shock Management Bundle Measure requires all lactic acids initially measuring >2.0 mmol/L be repeated. 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 Duodenum, descending, biopsy: -- Benign duodenal mucosa with no significant pathologic abnormalities. -- No evidence of villous blunting or increased intraepithelial lymphocytes. 2. Stomach, antrum, biopsy: -- Body-type gastric mucosa with minimal superficial chronic gastritis. -- No evidence of Helicobacter organisms. 3. Esophagus, biopsy: -- Columnar-type mucosa with mild chronic inflammation. -- Intestinal metaplasia is absent. -- Dysplasia is absent. CLINICAL HISTORY Iron deficiency anemia POST-OPERATIVE DIAGNOSIS EGD: normal distal esophagus, biopsied; intact fundoplication; very mild gastritis, biopsied. Colon: single small erosion terminal ileum, otherwise normal; normal colon. Conclusions/Plan: Continue Protonix, increase twice a day dosing for 8 weeks GROSS DESCRIPTION 1. The specimen is received in formalin labeled, Descending Duodenum Biopsies, and consists of two tubbs irregular soft tissue fragments averaging 0.5 x 0.2 x 0.1 cm which are submitted entirely in one cassette. 2. The specimen is received in formalin labeled, Antrum Biopsies, and consists of a 0.4 x 0.1 x 0.1 cm tubbs-pink irregular soft tissue fragment. No other tissue is identified within CONTINUED ON NEXT PAGE * ML=Testing performed at Main Lab DEPARTMENT OF PATHOLOGY, [address] [place] [address] Dallas Navarrete M.D. Director [facility] # [id number] RUN DATE: 07/26/17 [facility] LAB LIVE PAGE 2 Patient: LUISANA MENDEZ [id number] (Continued) GROSS DESCRIPTION (Continued) GROSS DESCRIPTION (Continued) the container. Entirely submitted, one cassette. 3. The specimen is received in formalin labeled, Esophagus Biopsy, and consists of two tubbs irregular soft tissue fragments averaging 0.6 x 0.2 x 0.1 cm which are submitted entirely in one cassette. Signed (signature on file) Natalia Mcdermott MD 1355 END OF REPORT * ML=Testing performed at Main Lab DEPARTMENT OF PATHOLOGY, [address] [place] [address] Dallas Navarrete M.D. Director [facility] # [id number] 16 SEE RESULT BELOW Name: LUISANA MENDEZ : [address]: Vikas Mendiola NP Acct: [id number] Unit: [id number] AGE: 31 Location: [facility] Re07/08/17 SEX: F Status: REG REF SPEC: [id number] TRACEY: 07/08/17-1415 [facility] DR: Vikas Mendiola NP REQ: [id number] RECD: 07/08/178606 STATUS: COMP _ SOURCE: VAGINAL SPDESC: ORDERED: Mariola,Yeast DNA, Trich DNA COMMENTS: [id number] Procedure Result Reported Site Gardnerella/Yeast: Vaginal DNA Final 07/09/17- 1242 ML Organism 1 Negative Wendy Organism 2 POSITIVE GARDNERELLA The presence of G. vaginalis, although suggestive, is not diagnostic for bacterial vaginosis. Results should be interpreted in conjuction with other clinical and laboratory data available. Women with vaginal discharge should be evaluated for risk factors of cervicitis and pelvic inflammatory disease, toxic shock syndrome (S.aureus), and if present, evaluated for organisms not included in this assay such as N. gonorrhoeae, C. trachomatis, Mobiluncus, Mycoplasma and/or Prevotella. Mixed infections may occur. The performance of this test on patient specimens collected during or immediately after antimicrobial therapy is unknown. The presence or absence of Wendy species, or G. vaginalis cannot be used as a test for therapeutic success or failure. Trichomonas: Vaginal DNA Probe Final 07/09/17- 1242 ML Organism 1 Negative Trichomonas CONTINUED ON NEXT PAGE * ML=Testing performed at [facility] Lab DEPARTMENT OF PATHOLOGY, [address] [place] [address] Dallas Navarrete M.D. Director [facility] # [id number] Patient: LUISANA MENDEZ [id number] (Continued) Specimen: [id number] Collected: 07/08/17 Received: 07/08/17 (Continued) Procedure Result Reported Site Trichomonas: Vaginal DNA Probe Final (continued) 07/09/17- 1243 The presence or absence of T. vaginalis cannot be used as a test for therapeutic success or failure. * ML - MAIN LAB ([facility]) . END OF REPORT * ML=Testing performed at Main Lab DEPARTMENT OF PATHOLOGY, [address] [place] [address] Dallas Navarrete M.D. Director [facility] # [id number] [id number] 18 SEE RESULT BELOW Name: LUISANA MENDEZ : [address]: Hilda Ambrocio NP Acct: [id number] Unit: [id number] AGE: 31 Location: [facility] Re06/05/17 SEX: F Status: REG REF SPEC: [id number] TRACEY: 06/05/17-[address]: Hilda Ambrocio NP REQ: [id number] RECD: 06/05/17 STATUS: COMP _ SOURCE: URINE SPDESC: ORDERED: Urine Culture COMMENTS: [id number] Urine Source: Random Procedure Result Reported Site Urine Culture Final 06/06/17- 1416 ML No Growth (<1,000 CFU/mL) * ML - MAIN LAB ([facility]) . END OF REPORT * ML=Testing performed at Main Lab DEPARTMENT OF PATHOLOGY, [address] [place] [address] Dallas Navarrete M.D. Director [facility] # [id number] 19 [id number] 20 Consistent with previous results on 04/09/17. 21 [id number] 22 [id number] 23 Consistent with previous results on 04/06/17. 24 [id number] 25 Result TnIDx:0.18 Called to [id number] at: 22:38:22 by:[id number] Read back by: [id number] 26 Consistent with previous results on 04/05/16. 27 Because ethnic data is not always readily available, this report includes an eGFR for both -Americans and non- Americans. The National Kidney Disease Education Program (NKDEP) does not endorse the use of the MDRD equation for patients that are not between the ages of 18 and 70, are , have extremes of body size, muscle mass, or nutritional status, or are non- or non-. According to the National Kidney Foundation, irrespective of diagnosis, the stage of the disease is based on the level of kidney function: Stage Description GFR(mL/min/1.73 m(2)) 1 Kidney damage with normal or decreased GFR 90 2 Kidney damage with mild decrease in GFR 60-89 3 Moderate decrease in GFR 30-59 4 Severe decrease in GFR 15-29 5 Kidney failure <15 (or dialysis) 28 <5.0 Negative 5.0 - 25.0 Indeterminate (Repeat testing recommended after 72 hours) >25.0 Positive Perimenopausal women can display HCG levels of up to 20 mIU/mL 29 [id number] 30 Desirable <150 Borderline high 150-199 High 200-499 Very High >500 31 Desirable <200 Borderline high 200-239 High >239 32 Low <40 Desirable: 40-60 High: >60 33 Desirable: <100 mg/dL Near Optimal: 100-129 mg/dL Borderline High: 130-159 mg/dL High: 160-189 mg/dL Very High: >189 mg/dL 34 Consistent with previous results on 05-31-15. 35 If is still suspected, please repeat test after 48 to 72 hours. This test detects intact HCG only and is indicated for the early detection of . 36 [id number] 37 SEE RESULT BELOW Name: LUISANA MENDEZ : [address]: Nam Adame III, NP Acct: [id number] Unit: [id number] AGE: 29 Location: [facility] Re11/11/15 SEX: F Status: REG REF SPEC: [id number] TRACEY: 11/11/15-[address]: Nam Adame III, NP REQ: [id number] RECD: 11/11/15-1214 STATUS: COMP _ SOURCE: URINE SPDESC: ORDERED: Urine Culture COMMENTS: [id number] Procedure Result Reported Site Urine Culture Final 11/12/15- 1252 ML No growth of clinically significant organisms * ML - MAIN LAB ([facility]) . END OF REPORT * ML=Testing performed at Main Lab DEPARTMENT OF PATHOLOGY, [address] [place] [address] Dallas Navarrete M.D. Director [facility] # [id number] 38 Legal Summer Intern: [id number] RICKEY BUNDY The shoulder joiner and regulatory agencies both recommend that a throat culture for beta strep be performed if a Rapid Group A Strep assay yields a negative result. Therefore a culture will be automatically performed on all negative samples. 39 SEE RESULT BELOW Name: LUISANA MENDEZ : [address]: Lissette Bustos [facility] Acct: [id number] Unit: [id number] AGE: 29 Location: [facility] Re08/15/15 SEX: F Status: REG REF SPEC: [id number] TRACEY: 08/16/15 [facility] DR: Lissette Bustos [facility] REQ: [id number] RECD: 08/16/15-122 STATUS: RENE HARPER DR: Vikas Mendiola FORM MAKER PLASTER _ SOURCE: THROAT SPDESC: ORDERED: Throat Beta Str Procedure Result Reported Site Throat Beta Strep Culture Final 08/18/15- 950 ML Negative For Group A Beta Streptococcus * ML - [facility] ([facility]) . END OF REPORT * ML=Testing performed at [facility] Lab DEPARTMENT OF PATHOLOGY, [address] [place] [address] Dallas Navarrete M.D. Director [facility] # [id number] 40 Test Performed by: [place] [address] System Administration Manager: Deny Chávez II, M.D., Ph.D. 41 REFERENCE VALUE <20.0 (Negative) Test Performed by: [place] [address] System Administration Manager: Deny Chávez II, M.D., Ph.D. 42 Because ethnic data is not always readily available, this report includes an eGFR for both -Americans and non- Americans. The National Kidney Disease Education Program (NKDEP) does not endorse the use of the MDRD equation for patients that are not between the ages of 18 and 70, are , have extremes of body size, muscle mass, or nutritional status, or are non- or non-. According to the National Kidney Foundation, irrespective of diagnosis, the stage of the disease is based on the level of kidney function: Stage Description GFR(mL/min/1.73 m(2)) 1 Kidney damage with normal or decreased GFR 90 2 Kidney damage with mild decrease in GFR 60-89 3 Moderate decrease in GFR 30-59 4 Severe decrease in GFR 15-29 5 Kidney failure <15 (or dialysis) 43 Consistent with previous results on 04/29/15. 44 SEE RESULT BELOW Name: LUISANA MENDEZ : [address]: Gracia Brooks MD Acct: [id number] Unit: [id number] AGE: 29 Location: [facility] Re05/02/15 SEX: F Status: REG REF SPEC: [id number] TRACEY: 05/02/15 [facility] DR: Gracia Brooks MD REQ: [id number] RECD: 05/02/15 STATUS: RENE HARPER DR: Vikas Mendiola FORM MAKER PLASTER _ SOURCE: URINE SPDESC: ORDERED: Urine Culture QUERIES: Urine Source: Clean Catch Procedure Result Reported Site Urine Culture Final 05/04/15- 1140 ML Organism 1 NORMAL POP [place] Count 10-25,000 (Moderate) CFU/ML * ML - [facility] ([facility]) . END OF REPORT * ML=Testing performed at Main Lab DEPARTMENT OF PATHOLOGY, [address] [place] [address] Dallas Navarrete M.D. Director [facility] # [id number] 45 The high-risk HPV types detected by the assay include: 16, 18, 31, 33, 35, 39, 45, 51, 52, 56, 58, 59, 66, and 68. 46 SEE RESULT BELOW Name: LUISANA MENDEZ : [address]: Vikas Mendiola NP Acct: [id number] Unit: [id number] AGE: 29 Location: [facility] Re04/01/15 SEX: F Status: REG REF SPEC: [id number] TRACEY: 04/01/15-[address]: Vikas Mendiola NP REQ: [id number] RECD: 04/01/15-4623 STATUS: SOUT _ ORDERED: IMAGE ANALYSIS, HPV/Thin Prep, HPV 16/18 GENE FINAL DIAGNOSIS Negative for Intraepithelial lesion or Malignancy A. Ectocervical/Endocervical Specimen Adequacy: Satisfactory of evaluation Transformation zone component identified Patient Information: HPV: High risk HPV RNA testing regardless of pap results. HPV 16/18 Genotype for HPV pos Actual Specimen Date: 04/01/15 Last Menstrual Date: 03/10/15 Date of Last Specimen: 01/19/13 Date Time Test Result Flag (u) Normal Range 04/01/15 1056 HPV RNA RFLX GE Negative Negative The high-risk HPV types detected by the assay include: 16, 18, 31, 33, 35, 39, 45, 51, 52, 56, 58, 59, 66, and 68. Signed (signature on file) Nimesh Cedeno 04/04/15 José Miguel This Pap test was evaluated with the assistance of the Power-OnePrep Test Imaging System. Due to cytologic findings at the women's studies lecturer microscope, comprehensive manual rescreening by a Waist Presser may be required. The Pap Smear is a screening test designed to aid in the detection of premalignant and malignant conditions of the uterine cervix. It is not a diagnostic procedure and should not be used as the sole means of detecting cervical cancer. Both false- positive and false- negative reports do occur. Depending on your risk status, a Pap smear should be obtained and evaluated every 1-3 years. END OF REPORT * ML=Testing performed at Main Lab DEPARTMENT OF PATHOLOGY, [address] [place] [address] Dallas Navarrete M.D. Director [facility] # [id number] 47 SEE RESULT BELOW Name: LUISANA MENDEZ : [address]: Jamaal Vega MD Acct: [id number] Unit: [id number] AGE: 28 Location: [facility]O Re11/11/14 SEX: F Status: REG REF SPEC: [id number] TRACEY: 11/11/14-1120 [facility] DR: Jamaal Vega MD REQ: [id number] RECD: 11/11/141068 STATUS: COMP [facility] DR: Vikas Mendiola FORM MAKER PLASTER _ SOURCE: GAS ANTRUM SPDESC: ORDERED: Clotest Procedure Result Verified Site Clotest Final 11/12/14- 0752 ML Clotest Negative * ML - MAIN LAB ([facility]) . END OF REPORT * ML=Testing performed at Main Lab DEPARTMENT OF PATHOLOGY, [address] [place] [address] Dallas Navarrete M.D. Director [facility] # [id number] 48 Low risk: <1.00 Average risk: 1.00-3.00 High risk: >3.00 49 Because ethnic data is not always readily available, this report includes an eGFR for both -Americans and non- Americans. The National Kidney Disease Education Program (NKDEP) does not endorse the use of the MDRD equation for patients that are not between the ages of 18 and 70, are , have extremes of body size, muscle mass, or nutritional status, or are non- or non-. According to the National Kidney Foundation, irrespective of diagnosis, the stage of the disease is based on the level of kidney function: Stage Description GFR(mL/min/1.73 m(2)) 1 Kidney damage with normal or decreased GFR 90 2 Kidney damage with mild decrease in GFR 60-89 3 Moderate decrease in GFR 30-59 4 Severe decrease in GFR 15-29 5 Kidney failure <15 (or dialysis) 50 Acute inflammation: >10.00 51 RUN DATE: 02/19/14 [facility] LAB LIVE PAGE 1 RUN TIME: 7171 [address] [place], [place] [address] Specimen Inquiry Name: LUISANA MENDEZ : [address]: Khushi Guzman MD Acct: [id number] Unit: [id number] AGE: 28 Location: [facility] Re02/18/14 SEX: F Status: DEP ER SPEC: [id number] TRACEY: 02/18/14-1257 [facility] DR: Khushi Guzman MD REQ: [id number] RECD: 02/18/14-160 STATUS: RENE HARPER DR: Vikas Mendiola FORM MAKER PLASTER _ SOURCE: VAGINAL SPDESC: ORDERED: Affirm QUERIES: Medent Number [id number] Procedure Result Verified Site Affirm Vaginal DNA Probe Final 02/19/14- 1408 ML Organism 1 Negative Trichomonas Organism 2 Negative Gardnerella Organism 3 Negative Wendy The presence of G. vaginalis, although suggestive, is not diagnostic for bacterial vaginosis. Results should be interpreted in conjunction with other clinical and laboratory data available. Women with vaginal discharge should be evaluated for risk factors of cervicitis and pelvic inflammatory disease, toxic shock syndrome (S.aureus), and if present, evaluated for organisms not included in this assay such as N. gonorrhoeae, C. trachomatis, Mobiluncus, Mycoplasma and/or Prevotella. Mixed infections may occur. The performance of this test on patient specimens collected during or immediately after antimicrobial therapy is unknown. The presence or absence of Wendy species, G. vaginalis or T. vaginalis cannot be used as a test for therapeutic success or failure. END OF REPORT * ML=Testing performed at Main Lab DEPARTMENT OF PATHOLOGY, [facility] [address] [place], [place] [address] Dallas Navarrete M.D. Director [facility] # [id number] RUN DATE: 02/19/14 [facility] LAB LIVE PAGE 1 RUN TIME: [address] [place] [address] Specimen Inquiry Name: LUISANA MENDEZ : [address]: Khushi Guzman MD Acct: [id number] Unit: [id number] AGE: 28 Location: [facility] Re02/18/14 SEX: F Status: DEP ER SPEC: [id number] TRACEY: 02/18/14-1257 [facility] DR: Khushi Guzman MD REQ: [id number] RECD: 02/18/14-1602 STATUS: RENE HARPER DR: Vikas Mendiola FORM MAKER PLASTER _ SOURCE: ENDOCERVIX SPDESC: ORDERED: CAROLEE/Adriana RNA QUERIES: Medent Number [id number] Procedure Result Verified Site Chlamydia Trachomatis RNA Final 02/19/14- 1500 ML NEGATIVE for Chlamydia trachomatis rRNA GC (N. gonorrhoeae) RNA Final 02/19/14- 1449 ML NEGATIVE for Neisseria gonorrhoeae rRNA A negative result does not preclude the presence of a C. trachomatis or N. gonorrhoeae infection because results are dependent on adequate specimen collection, absence of inhibitors, and sufficient rRNA to be detected. Test results may be affected by improper specimen collection, improper storage, technical error, or specimen mixup. Limitations of the Procedure: The Aptima Combo 2 Assay is not intended for the evaluation of suspected sexual abuse or for other medico-legal indications. For those patients for whom a false positive result may have adverse psychosocial impact, the [facility] recommends retesting by a method using an alternate technology. Therapeutic failure or success cannot be determined with the Aptima Combo 2 Assay since nucleic acid may persist following appropriate antimicrobial therapy. Results from the Aptima Combo 2 Assay should be interpreted in conjunction with other laboratory and clinical data available to the clinican. CONTINUED ON NEXT PAGE * ML=Testing performed at Main Lab DEPARTMENT OF PATHOLOGY, [facility] [address] [place], [place] [address] Dallas Navarrete M.D. Director [facility] # [id number] RUN DATE: 02/19/14 [facility] LAB LIVE PAGE 2 RUN TIME: 1500 [facility] [employer] [place], [place] [address] Specimen Inquiry Patient: LUISANA MENDEZ [id number] (Continued) Specimen: [id number] Collected: 02/18/14-1256 Received: 02/18/14-160 (Continued) Procedure Result Verified Site GC (N. gonorrhoeae) RNA Final (continued) 02/19/14- 8325 Performance characteristics for detecting C. trachomatis and N. gonorrhoeae are derived from high prevalence populations. Positive results in low prevalence populations should be interpreted carefully with the understanding that the likelihood of a false positive may be higher than a true positive. END OF REPORT * ML=Testing performed at Main Lab DEPARTMENT OF PATHOLOGY, [facility] [place] [address] Dallas Navarrete M.D. Director [facility] # [id number] 53 RUN DATE: 02/20/14 [facility] LAB LIVE PAGE 1 RUN TIME: [address] [place] [address] Specimen Inquiry Name: LUISANA MENDEZ : [address]: Khushi Guzman MD Acct: [id number] Unit: [id number] AGE: 28 Location: [facility] Re02/18/14 SEX: F Status: DEP ER SPEC: [id number] TRACEY: 02/18/14-1140 [facility] DR: Khushi Guzman MD REQ: [id number] RECD: 02/18/14-1601 STATUS: RENE HARPER DR: Vikas Mendiola NP _ SOURCE: URINE SPDESC: ORDERED: Urine Culture Procedure Result Verified Site Urine Culture Final 02/20/14- 1112 ML No Growth Day 2 (<1,000 CFU/mL) END OF REPORT * ML=Testing performed at Main Lab DEPARTMENT OF PATHOLOGY, [facility] [address] [place] [address] Dallas Navarrete M.D. Director [facility] # [id number] 54 RUN DATE: 10/11/13 [facility] LAB LIVE PAGE 1 RUN TIME: 1530 [facility] [employer] [place], [place] [address] Specimen Inquiry Name: LUISANA MENDEZ : [address]: Vikas Mendiola NP Acct: [id number] Unit: [id number] AGE: 27 Location: [facility] Re10/09/13 SEX: F Status: REG REF SPEC: [id number] TRACEY: 10/09/13-[address]: Vikas Mendiola NP REQ: [id number] RECD: 10/09/13 STATUS: COMP _ SOURCE: URINE SPDESC: ORDERED: Urine Culture QUERIES: Medent Number [id number] Procedure Result Verified Site Urine Culture Final 10/11/13- 1530 ML Organism 1 STREP GROUP B [place] Count 1-10,000 (Few) CFU/ML Organism 2 NORMAL POP [place] Count 25-50,000 (Moderate) CFU/ML Susceptibility testing of penicillins and other B-lactams approved by FDA for treatment of Streptococcus pyogenes (Group A Strep) and Streptococcus agalactiae (Group B Strep) is not necessary for clinical purposes and need not be done routinely, since as with vancomycin, resistant strains have not been recognized. (CLSI Q002-Q76;p.66) Positive isolates will be saved for one week. Please call the Microbiology Laboratory if further susceptibility testing is needed. END OF REPORT * ML=Testing performed at Main Lab DEPARTMENT OF PATHOLOGY, [facility] [address] [place], [place] [address] Dallas Navarrete M.D. Director [facility] #[id number] HDL Interpretation: Undesirable: High Risk: Less than 40 mg/dL Desirable: Low Risk: Greater than 60 mg/dL 56 LDL Interpretation: Low Risk Optimal Level: LDL Less than 100 mg/dL Near or Above Optimal: LDL 100-129 mg/dL Borderline High Risk: LDL 130-159 mg/dL High Risk: LDL 160-189 mg/dL Very High Risk: LDL Greater than 189 mg/dL 57 RUN DATE: 01/20/13 [facility] LAB LIVE PAGE 1 RUN TIME: 1216 [facility] [employer] [place], [place] [address] Specimen Inquiry Name: LUISANA MENDEZ : [address]: Vikas Mendiola NP Acct: [id number] Unit: [id number] AGE: 27 Location: [facility] Re01/19/13 SEX: F Status: REG REF SPEC: [id number] TRACEY: 01/19/13-906 [facility] DR: Vikas Mendiola FORM MAKER PLASTER REQ: [id number] RECD: 01/19/13-1213 STATUS: SOUT _ ORDERED: IMAGE ANALYSIS FINAL DIAGNOSIS Negative for Intraepithelial lesion or Malignancy A. Ectocervical/Endocervical Specimen Adequacy: Satisfactory of evaluation Transformation zone component identified Patient Information: HPV: Thin Layer Pap Test w/reflex to high risk HPV DNA testing when ASCUS Actual Specimen Date: 01/19/13 Last Menstrual Date: 12/30/12 Date of Last Specimen: 08/24/11 Signed (signature on file) PATRICK Mcduffie (ASCP) 01/20 1216 This Pap test was evaluated with the assistance of the Power-OnePrep Test Imaging System. Due to cytologic findings at the women's studies lecturer microscope, comprehensive manual rescreening by a Waist Presser may be required. The Pap Smear is a screening test designed to aid in the detection of premalignant and malignant conditions of the uterine cervix. It is not a diagnostic procedure and should not be used as the sole means of detecting cervical cancer. Both false- positive and false- negative reports do occur. Depending on your risk status, a Pap smear shoudl be obtained and evaluated every 1-3 years. END OF REPORT * ML=Testing performed at Main Lab DEPARTMENT OF PATHOLOGY, [facility] [address] [place], [place] [address] Dallas Navarrete M.D. Director [facility] #[id number] 58 RUN DATE: 12/14/12 [facility] LAB LIVE PAGE 1 RUN TIME: [address] [place], [place] [address] Specimen Inquiry Name: LUISANA MENDEZ : [address]: Hilda Ambrocio NP Acct: [id number] Unit: [id number] AGE: 27 Location: [facility] Re12/12/12 SEX: F Status: REG REF SPEC: [id number] TRACEY: 12/12/12-[address]: Hilda Ambrocio NP REQ: [id number] RECD: 12/12/12 STATUS: COMP _ SOURCE: URINE SPDESC: ORDERED: Urine Culture QUERIES: Medent Number [id number] Procedure Result Verified Site Urine Culture Final 12/14/12- 0841 ML Organism 1 ESCHERICHIA COLI [place] Count 10-25,000 (Moderate) CFU/ML 1. ESCHERICHIA COLI M.I.C. RX --------- ------ Ampicillin <=2 S Cefazolin <=4 S Cefepime <=1 S Ceftriaxone <=1 S Ciprofloxacin <=0.25 S Gentamicin <=1 S Imipenem <=0.25 S Levofloxacin <=0.12 S Meropenem <=0.25 S Nitrofurantoin <=16 S Tetracycline <=1 S Pipercillin/Tazobactam <=4 S Trimethoprim/Sulfamethoxazole <=20 S Amoxicillin/Clavulanic Acid <=2 S Aztreonam <=1 S Contact the Microbiology Department for any additional antibiotic reporting. END OF REPORT * ML=Testing performed at Main Lab DEPARTMENT OF PATHOLOGY, [facility] [place] [address] Dallas Navarrete M.D. Director [facility] #[id number] 59 RUN DATE: 12/03/12 [facility] LAB LIVE PAGE 1 RUN TIME: [address] [place] [address] Specimen Inquiry Name: LUISANA MENDEZ : [address]: Carloz Almanzar MD Acct: [id number] Unit: [id number] AGE: 27 Location: ED Re12/01/12 SEX: F Status: DEP ER SPEC: [id number] TRACEY: 12/01/12-[address]: Carloz Almanzar MD REQ: [id number] RECD: 12/01/12 STATUS: RENE HARPER DR: Vikas Mendiola FORM MAKER PLASTER _ SOURCE: URINE SPDESC: ORDERED: Urine Culture Procedure Result Verified Site Urine Culture Final 12/03/12- 1026 ML Organism 1 NORMAL POP [place] Count 25-50,000 (Moderate) CFU/ML END OF REPORT * ML=Testing performed at Main Lab DEPARTMENT OF PATHOLOGY, [address] [place] [address] Dallas Navarrete M.D. Director [facility] #[id number] 60 Because ethnic data is not always readily available, this report includes an eGFR for both -Americans and non- Americans. The National Kidney Disease Education Program (NKDEP) does not endorse the use of the MDRD equation for patients that are not between the ages of 18 and 70, are , have extremes of body size, muscle mass, or nutritional status, or are non- or non-. According to the National Kidney Foundation, irrespective of diagnosis, the stage of the disease is based on the level of kidney function: Stage Description GFR(mL/min/1.73 m(2)) 1 Kidney damage with normal or decreased GFR 90 2 Kidney damage with mild decrease in GFR 60-89 3 Moderate decrease in GFR 30-59 4 Severe decrease in GFR 15-29 5 Kidney failure <15 (or dialysis) 61 ---- RUN DATE: 08/27/11 [facility] NMI LIVE PAGE 1 RUN TIME: 1310 Specimen Inquiry RUN USER: INTERFACE -- Name: LUISANA MENDEZ Acchung#: [id number] Status: REG REF Re08/24/11 Age/Sex: 25/F Unit#: [id number] Location: [facility] : 83 -- Specimen: [id number] SOUT Spec Date:08/24/[address]: Sharon gusman MD Spec Type: CYTOLOGY Received:08/27/11 Copies to: SOURCE ECTOCERVICAL/ENDOCERVICAL Thin Prep with Reflex HPV Test PATIENT INFORMATION ACTUAL COLLECTION DATE: 08/24/11 PATIENT HISTORY: No history given. ADEQUACY OF SPECIMEN Satisfactory for evaluation * Transformation zone component identified * DIAGNOSIS NEGATIVE FOR INTRAEPITHELIAL LESION OR MALIGNANCY * This Pap test was evaluated with the assistance of the Power-OnePrep Pap Test Imaging System. The Pap Smear is a screening test designed to aid in the detection of premalign ant and malignant conditions of the uterine cervix. It is not a diagnostic procedure a nd should not be used as the sole means of detecting cervical cancer. Both false- positiv e and false-negative reports do occur. Depending on your risk status, a Pap smear daniela uld be obtained and evaluated every one to three years. Initial evaluation performed by Gilmar SMITHASC) 08/27/11 Final Interpretation electronically signed by: Gilmar SMITH(ASCP) 08/27/11 1309 -- -- DEPARTMENT OF PATHOLOGY, [address] [place] [address] [facility] Permit #[id number] Dallas Navarrete M.D. Director Leah Wilson M.D. Director Software Dir paulo -- 62 * MALES: < 5.0 MIU/ML NON FEMALES < 5.0 MIU/ML APPROX GESTATIONAL AGE APPROX HCG RANGE 0-1 WEEK < 5.0-50 1-2 WEEKS 50-500 2-3 WEEKS 100-5000 3-4 WEEKS 500-10,000 1-2 MONTHS 10,000-200,000 2-3 MONTHS 15,000-100,000 PLEASE NOTE: The intended use of this assay is the quantitative determination of HCG in human serum or plasma for the early detection of . These assays should not be used to diagnose any condition unrelated to . If an HCG level is inconsistent with, or unsupported by, clinical evidence, results should be confirmed by an alternate HCG method. . 63 Anion gap measurement may be of limited value in the presence of any alkalosis, especially in a combined acid base disorder. . 64 Because ethnic data is not always readily available, this report includes an eGFR for both -Americans and non- Americans. The National Kidney Disease Education Program (NKDEP) does not endorse the use of the MDRD equation for patients that are not between the ages of 18 and 70, are , have extremes of body size, muscle mass, or nutritional status, or are non- or non-. According to the National Kidney Foundation, irrespective of diagnosis, the stage of the disease is based on the level of kidney function: Stage Description GFR(mL/min/1.73 m(2)) 1 Kidney damage with normal or decreased GFR 90 2 Kidney damage with mild decrease in GFR 60-89 3 Moderate decrease in GFR 30-59 4 Severe decrease in GFR 15-29 5 Kidney failure <15 (or dialysis) 65 ---- RUN DATE: 02/24/10 [facility] NMI LIVE PAGE 1 RUN TIME: 1548 Specimen Inquiry RUN USER: INTERFACE -- Name: LUISANA MENDEZ Status: REG REF Re02/23/10 Age/Sex: 24/F Unit#: [id number] Location: [facility] : 83 -- Specimen: [id number] Spec Date: 02/23/[address]: Jamaal Vega MD Spec Type: SURGICAL P Received: 02/23/10-1255 Copies to: Vikas Ashley FORM MAKER PLASTER SPECIMEN RANDOM COLON BIOPSY HISTORY POST-OP DIAGNOSIS: Colonoscopy to mid ileum normal, random biopsy. Normal EGD/colon consistant with irritable bowel syndrome non-erosive gastroesophageal re flux disease CLINICAL INFORMATION: Abdominal pain,chronic diarrhea, gastroesophageal r eflux disease. GROSS DESCRIPTION The specimen is received in formalin labelled Luisana Mendez, Random Colon Biopsy, and consists of several fragments of yellow tissue measuring in aggregate 0.7 x 0.5 x 0.2 cm. Submitted entirely, one cassette. DIAGNOSIS Random colon, biopsy: Fragments of large bowel mucosa with no significant pathologic changes. Signed Electronically by: LEAH WILSON 02/24/10 1548 -- -- DEPARTMENT OF PATHOLOGY, [address] [place] [address] [facility] Permit #[id number] Dallas Navarrete M.D. Director Leah Wilson M.D. Director Software Dir paulo -- 66 NO GROWTH OF CAMPYLOBACTER AFTER 48 HOURS 67 SOFT SEMI-FORMED 68 NEGATIVE FOR THE ENTERIC PATHOGENS - SALMONELLA, SHIGELLA, AEROMONAS, PLESIOMONAS AND YERSINIA. VIBRIO AND E. COLI 0157 NOT ROUTINELY TESTED FOR IN A STOOL CULTURE. PLEASE SUBMIT SAMPLE WITH SPECIFIC REQUEST FOR DESIRED ORGANISM(S). 69 NO PATHOGENS TO DATE FINAL REPORT PENDING COMPLETION OF INCUBATION PERIOD 70 NEGATIVE BY IMMUNOCHROMATOGRAPHIC ASSAY NEGATIVE BY IMMUNOCHROMATOGRAPHIC ASSAY 71 Anion gap measurement may be of limited value in the presence of any alkalosis, especially in a combined acid base disorder. . 72 Note change in reference range as of 01/29/08. The change was based on recommendations from the [place] [employer]. 73 Please note change in reference range effective 07 . 74 A metabolite of Naproxen, O-desmethylnaproxen, has been shown to interfere with the Jendrassik-Christal method for measuring total bilirubin. Samples from patients who have taken Naproxen have shown spurious elevation in total bilirubin levels. 75 Because ethnic data is not always readily available, this report includes an eGFR for both -Americans and non- Americans. The National Kidney Disease Education Program (NKDEP) does not endorse the use of the MDRD equation for patients that are not between the ages of 18 and 70, are , have extremes of body size, muscle mass, or nutritional status, or are non- or non-. According to the National Kidney Foundation, irrespective of diagnosis, the stage of the disease is based on the level of kidney function: Stage Description GFR(mL/min/1.73 m(2)) 1 Kidney damage with normal or decreased GFR 90 2 Kidney damage with mild decrease in GFR 60-89 3 Moderate decrease in GFR 30-59 4 Severe decrease in GFR 15-29 5 Kidney failure <15 (or dialysis) 76 Analyte Specific Reagent This test was developed and its performance characteristics determined by Laboratory Medicine and Pathology, [facility]. This test has not been cleared or approved by the U.S. Food and Drug Administration. Test Performed by: [facility] Dpt of Lab Med and Pathology [address] [place] [address] System Administration Manager: Ramesh Sheppard III, M.D. 77 Test Performed by: [facility] Dpt of Lab Med and Pathology [address] [place] [id number] System Administration Manager: Ramesh Sheppard III, M.D. 78 . A negative result does not preclude the presence of a C.trachomatis or N.gonorrhoeae infection because results are dependent on adequate specimen collection, absence of inhibitors, and sufficient rRNA to be detected. Test results may be affected by improper specimen collection, improper specimen storage, technical error, or specimen mixup. . 79 . A negative result does not preclude the presence of a C.trachomatis or N.gonorrhoeae infection because results are dependent on adequate specimen collection, absence of inhibitors, and sufficient rRNA to be detected. Test results may be affected by improper specimen collection, improper specimen storage, technical error, or specimen mixup. . 80 FINAL: NO GROWTH DAY 2 (<1,000 CFU/mL) 81 ---- RUN DATE: 01/28/09 [facility] LIVE PAGE 1 RUN TIME: 1252 Specimen Inquiry RUN USER: INTERFACE -- Name: LUISANA MENDEZ Status: REG REF Re01/27/09 Age/Sex: 23/F Unit#: [id number] Location: [facility] : 83 -- Specimen: [id number] SOUT Spec Date: 01/27/[address]: Vikas lora NP Spec Type: CYTOLOGY Received: 01/28/09-1012 Copies to: SOURCE ECTOCERVICAL/ENDOCERVICAL Thin Prep with Reflex HPV Test PATIENT INFORMATION ACTUAL COLLECTION DATE: 01/27/09 LAST MENSTRUAL PERIOD: 01/13/09 ADEQUACY OF SPECIMEN Satisfactory for evaluation * Transformation zone component identified * DIAGNOSIS NEGATIVE FOR INTRAEPITHELIAL LESION OR MALIGNANCY * Reactive cellular changes associated with * Inflammation (includes typical repair) * This Pap test was evaluated with the assistance of the Power-OnePrep Pap Test Imaging System. Due to cytologic findings at the women's studies lecturer microscope, comprehensive manual rescreening by a Waist Presser was required. The Pap Smear is a screening test designed to aid in the detection of premalign ant and malignant conditions of the uterine cervix. It is not a diagnostic procedure a nd should not be used as the sole means of detecting cervical cancer. Both false- positiv e and false-negative reports do occur. Depending on your risk status, a Pap smear daniela uld be obtained and evaluated every one to three years. Initial evaluation performed by Deny NUGENT(ASCP) 01/28/09 Final Interpretation electronically signed by: DALLAS NAVARRETE MD 01/28/09 12 52 -- DEPARTMENT OF PATHOLOGY, [address] [place] [address] [facility] Permit #[id number] Kayla Canales M.D. Director Software Dir paulo -- Procedures Description No Information Encounters Type Date Location Provider [facility] E/M Dx Office Visit 07/08/2017 1:30p Main Office MAUREEN Bland-Keyona 15363 Z00.00 N76.0 Office Visit 06/05/2017 9:45a Main Office AMUREEN Wolfe-C 83815 R31.9 Office Visit 05/09/2017 2:30p Main Office MAUREEN Bland-C 47694 D64.9 K21.0 Office Visit 04/09/2017 2:15p Main Office Nam Adame III, FISH TENDER-C 55725 D64.9 I21.4 Office Visit 08/03/2016 3:45p Main Office MAUREEN Bland-[place] 54981 J01.90 Office Visit 07/21/2016 10:45a Main Office MAUREEN Wolfe-[place] 77245 J01.90 Office Visit 04/05/2016 8:45a Main Office MAUREEN Bland-[place] 32682 Z00.00 E88.2 Office Visit 03/01/2016 11:30a Main Office MAUREEN Bland-[place] 83360 F41.9 Office Visit 02/07/2016 3:15p Main Office Vikas Mendiola, FISH TENDER-C 11050 F41.9 Office Visit 11/11/2015 9:45a Main Office Nam Adame III, FISH TENDER-C 75793 N39.0 Office Visit 09/27/2015 2:15p Main Office Vikas Mendiola, FISH TENDER-C 06892 Z30.9 Office Visit 07/30/2015 9:15a Main Office Nichelle Crespo M.D. 41267 J02.0 N39.0 Office Visit 05/31/2015 11:15a Main Office Vikas Mendiola, FISH TENDER-C 02764 M25.461 M25.462 Office Visit 04/01/2015 9:45a Main Office Vikas Mendiola, FISH TENDER-C 54065 Z00.00 E88.2 Z12.11 Z23 Office Visit 08/30/2014 11:15a Main Office Katlin Medina M.D., R.D. 36886 785.6 995.3 Office Visit 07/08/2014 11:45a Main Office Vikas Mendiola, FISH TENDER-C 24511 785.6 Office Visit 03/29/2014 9:45a Main Office Vikas Mendiola, FISH TENDER-C 83445 595.9 Office Visit 03/12/2014 1:30p Main Office Vikas Mendiola, FISH TENDER-C 52125 V70.0 V25.9 V05.3 V04.81 Office Visit 02/22/2014 9:30a Main Office Vikas Mendiola, FISH TENDER-C 22179 595.9 Office Visit 11/10/2013 11:00a Main Office Vikas Mendiola, FISH TENDER-C 33052 706.1 Office Visit 10/20/2013 11:15a Main Office Vikas Mendiola, FISH TENDER-C 35150 780.52 Office Visit 10/09/2013 3:45p Main Office Vikas Mendiola, FISH TENDER-C 75763 599.0 Office Visit 05/29/2013 10:30a Main Office Hilda Ambrocio, FISH TENDER-C 32936 461.8 Office Visit 04/24/2013 9:45a Main Office Vikas Mendiola, FISH TENDER-C 88014 611.72 Office Visit 01/19/2013 9:00a Main Office Vikas Mendiola [facility] 29071 V70.0 V72.60 Office Visit 12/12/2012 2:15p Main Office Hilda Ambrocio [facility] 00022 599.0 Office Visit 11/27/2012 10:15a Main Office Sharon Hamilton M.D. 97212 784.91 Office Visit 09/05/2012 3:15p Main Office Vikas Mendiola, FISH TENDER-C 63972 724.1 Office Visit 08/24/2011 2:00p Main Office Sharon Hamilton M.D. 01603 V70.0 V25.09 724.5 214.1 V06.1 Office Visit 03/23/2011 4:30p Main Office Sharon Hamilotn M.D. 76109 682.0 Office Visit 01/25/2010 11:30a Main Office Katlin Medina M.D., R.Celestina 36047 789.03 787.91 Office Visit 11/15/2009 10:15a Main Office Vikas Mendiola, [facility] 14306 789.03 Office Visit 10/07/2009 9:00a Main Office Vikas Mendiola [facility] 81035 300.00 Office Visit 09/08/2009 11:30a Main Office Vikas Mendiola, FISH TENDER-C 17665 300.00 Office Visit 07/22/2009 8:45a Main Office Vikas Mendiola, [facility] 46616 300.00 Office Visit 07/04/2009 12:30p Main Office Sadie Bledsoe M.D. 56190 599.0 Office Visit 01/27/2009 9:45a Main Office Vikas Mendiola, FISH TENDER-C 70377 V72.31 V25.09 V70.0 300.02 616.10 V74.1 Office Visit 09/15/2008 12:45p Main Office Nalini Kowalski.N.P.C. 28110 786.50 Office Visit 08/31/2008 2:15p Main Office MAUREEN Bland-C 46780 558.9 465.9 Office Visit 07/07/2008 2:30p Main Office Nalini Kowalski.N.P.C. 96298 786.2 Office Visit 05/18/2008 2:15p Main Office MAUREEN Bland-C 87036 V25.09 V70.0 300.02 625.6 Office Visit 05/11/2008 11:30a Main Office MAUREEN Bland-C 92329 789.00 Office Visit 05/30/2007 4:45p Main Office MAUREEN Bland-C 90996 727.43 Office Visit 04/08/2007 9:00a Main Office MAUREEN Bland-C 64015 648.44 V17.49 Office Visit 02/20/2007 8:45a Main Office MAUREEN Bland-C 77864 648.44 Plan of Care 12/05/2017 - MAUREEN Bland-CN92.6 Irregular menstruation, unspecifiedNew Medication:Apri 0.15-30 mg-mcgComments:will start daily OCP, screen for thyroid abnormalities, refer to Dr Clark office for endocrine evaluationFollow up:referral to Dr Joy
[2018-01-03 13:47] LABS: EGFR Non-African American 68.2 (>60)
[2018-01-03] MEDS ORDERED: NIFEdipine CAP* 10 MG PO ONE (14:09)
[2018-01-03 14:12] LABS: ABS Basophils 0 10^3/ul (0-0.2); ABS Eosinophils 0 10^3/ul (0-0.6); ABS Monocytes 0.4 10^3/ul (0-0.8); ABS Neutrophils 5.9 10^3/ul (1.5-7.7); ABS Nucleated RBC 0 10^3/ul; Eosinophil % 0.2 % (0-6); Lymphocyte % 23.7 % (25-47); Nucleated Red Blood Cells % 0.1
[2018-01-03] MEDS ORDERED: Iohexol 350* (CONTRAST) 500 ML MDV IV ONE (14:13)
--- NOTE | 2018-01-03 14:57 | RAD ---
HISTORY: cp/radiating to back/ family hx of dissection COMPARISONS: CT of the abdomen and pelvis dated September 09, 2012, CT chest dated April 04, 2017 TECHNIQUE: Multiple contiguous axial CT scans were obtained of the chest, abdomen, and pelvis after the administration of intravenous contrast. Coronal and sagittal multiplanar reformations are submitted for review.. Oral contrast was not administered. 3-D volumetric reconstructions of the aorta are submitted for review. FINDINGS: CHEST NECK AND THYROID: The lower neck and thyroid are unremarkable. CHEST WALL: There is no lower cervical, axillary, or supraclavicular lymphadenopathy by size criteria. HEART AND PERICARDIUM: The heart is unremarkable. AORTA AND PULMONARY VASCULATURE: The aorta and pulmonary vasculature are normal. There is no appreciable pulmonary arterial filling defect to suggest pulmonary embolism. There is no aneurysmal dilatation of the aorta. There is no linear filling defect to suggest intimal flap in the setting of dissection. There is no periaortic hematoma. MEDIASTINUM: There is no mediastinal lymphadenopathy by size criteria. ANGELA: There is no hilar lymphadenopathy by size criteria. AIRWAY AND ESOPHAGUS: The airway is unremarkable, without endobronchial filling defect. The esophagus is grossly normal. LUNG PARENCHYMA: The lungs are clear. PLEURA: No pleural abnormalities are noted. BONES AND SOFT TISSUES: No bone or soft tissue abnormalities are noted. ABDOMEN/PELVIS: LIVER: The liver is normal in shape, size, contour, and attenuation. BILE DUCTS: There is no intrahepatic or extrahepatic biliary dilatation. GALLBLADDER: The gallbladder is normal, without pericholecystic inflammatory change. PANCREAS: The pancreas is normal, without mass or ductal dilatation. SPLEEN: Normal in size and appearance. UPPER GI TRACT: Evaluation of the gastrointestinal tract is limited by incomplete gastric distention. The upper GI tract is unremarkable. SMALL BOWEL & MESENTERY: The small bowel is normal in contour, course, and caliber. There is no obstruction or dilatation. COLON: The colon is normal in contour, course, caliber. There is no pericolonic inflammatory change. There is a tubular, vermiform, hollow viscus that is blind ending, and originates from the cecum, consistent with a normal appendix. There is no periappendiceal inflammatory change. This is best seen on axial images 190 August 09, 2001. ADRENALS: Normal bilaterally. KIDNEYS: The kidneys are normal in shape, size, contour, and axis. There is no hydronephrosis or nephrolithiasis. BLADDER: The bladder is smooth in contour. PELVIC ORGANS: The uterus and adnexa are grossly normal for technique. AORTA: The aorta is normal. IVC: Unremarkable LYMPH NODES: There is no lymphadenopathy by size criteria. ABDOMINAL WALL: There is no evidence for abdominal wall hernia. BONES AND SOFT TISSUES: Unremarkable OTHER: None IMPRESSION: NO ACUTE CT PATHOLOGY OF THE VISUALIZED CHEST, ABDOMEN, OR PELVIS.
[2018-01-03] MEDS ORDERED: Acetaminophen TAB* 325 MG PO ONE (16:06)
[2018-01-03 17:51] VITALS: BP 105/67
--- NOTE | 2018-01-03 21:44 | CONS ---
CC: Vikas Mendiola NP; Dr. Elkins * CONSULTATION REPORT: DATE OF CONSULTATION: 01/03/18 - EMERGENCY DEPT PRIMARY CARE PROVIDER: Vikas Mendiola NP CRIME LAB TECHNICIAN: Dr. Elkins. CHIEF COMPLAINT: Chest pain. HISTORY OF PRESENT ILLNESS: Ms. Mendez is a 32-year-old female who was at work , initially feeling fine until approximately 11:30 a.m. when she began to feel lightheaded. She thought that may she needed to eat. She went downstairs for cafeteria to grab food and came back up to her desk and while sitting there, eating, she noted that the lightheadedness had worsened and she felt shortness of breath. Nurse who was sitting next to her checked her heart rate, which was initially under fine control, but then became rapid into the 140s and again subsided back down to the normal rate. She felt off from her baseline. Following this, she then developed significant pressure centrally located in her chest. This was very similar to last year when she was admitted for her non -ST-elevation MD. This is the first episode of chest pain she has had since she has been off amlodipine. During her last admission, the patient was diagnosed with vasospastic coronary artery disease and was started on amlodipine 2.5 mg daily. The patient had been feeling so well at home that she discontinued this medication. The patient states that after being in the emergency room and receiving nifedipine as well as nitroglycerin patch approximately over the last 2 hours, her chest pain has resolved. She is starting to have a headache at this point from the nitroglycerin. PAST MEDICAL HISTORY: 1. Vasospastic coronary artery disease. 2. History of rdn-WU-wiaizfblf MD likely secondary to vasospasm. 3. Chronic gastritis. 4. Iron deficiency anemia. 5. GERD. PAST SURGICAL HISTORY: 1. Ruth fundoplication. 2. Tubal ligation. 3. Right wrist ganglion cyst removal. MEDICATIONS: 1. Potassium chloride 10 mEq p.o. daily. 2. Clonazepam 0.5 mg p.o. q.h.s. p.r.n. insomnia. 3. Carafate 1 g p.o. b.i.d. p.r.n. GERD. 4. Omeprazole 40 mg p.o. b.i.d. 5. Taylor 180 mg p.o. daily. 6. Nitroglycerin 0.3 mg SL q.5 minutes p.r.n. chest pain. ALLERGIES: NSAIDS. FAMILY HISTORY: Mom at the age of 34 of a thoracic aortic aneurysm. Dad at the age of 38 with multiple myeloma. The patient has 1 sister who has a history of Raynaud's. SOCIAL HISTORY: The patient is a nonsmoker. She drinks alcohol on occasion. She does state that she drinks more alcohol last week and then normal due to being at [employer]. 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 She is . She has 2 children. She indicates that her is her healthcare proxy. REVIEW OF SYSTEMS: A complete 11-system review of systems is obtained. Pertinent positives and negatives are as per HPI, otherwise negative. PHYSICAL EXAMINATION: Blood pressure 116/82, pulse 70, respirations 13, temp 99.1, O2 sat 100% on room air. General: The patient is a well-developed, thin , young female, sitting up in the stretcher, in no acute distress. HEENT: Pupils are equal, round. Extraocular muscles are intact. Oropharynx is clear. Oral mucosa is moist. There is no submandibular, cervical, or supraclavicular adenopathy. Thyroid is not enlarged. No thyroid nodules are noted. Cardiac: Normal S1, S2. Regular rate and rhythm. I do not appreciate any murmurs. There is no lower extremity edema. Pulmonary: Lungs are clear to auscultation bilaterally. Abdomen: Bowel sounds are present. Abdomen is soft, nontender, nondistended. Musculoskeletal: There is no cyanosis or clubbing of the digits. There is full active range of motion of all 4 extremities. Skin is warm and dry. There are no rashes. Neuro: Cranial nerves II through XII are grossly intact. Sensation is intact to light touch throughout. Strength is 5/5 and symmetric in both upper and lower extremities bilaterally. Psych: The patient is alert. She is oriented x3. Affect appears appropriate. LABORATORY DATA/DIAGNOSTIC STUDIES: WBC 8.3, hemoglobin 14.7, hematocrit 43, platelets 276. INR 0.92. Sodium 138, potassium 3.6, chloride 102, CO2 24, BUN 18, creatinine 0.94, glucose 96. Lactic acid 1.4. Calcium 9.7. Bilirubin 0.3 , AST 15, ALT 12, alk phos 40. Troponin 0 x2 checks. Albumin 4.6. EKG reveals normal sinus rhythm. CTA chest, no acute CT pathology of the visualized chest, abdomen, and pelvis. ASSESSMENT AND PLAN: Ms. Mendez is a 32-year-old female who a history of vasospastic coronary artery disease who presents to the emergency room from work with complaints of chest pain. 1. Chest pain. This likely represents another episode of vasospasm. The patient has not had any evidence of heart muscle damage as her troponins are flat at 0. The patient is feeling much improved after receiving nifedipine and nitroglycerin in the emergency room. The patient does not wish to stay overnight in the hospital. With 2 negative troponins and EKGs, it was felt that she could be discharged home knowing that she is a reliable patient to return to the emergency room if she has any further episodes of chest pain. The patient is willing to be restarted on amlodipine 2.5 mg p.o. daily and she will start this tomorrow. Additionally, it has been recommended that she carry a bottle of nitroglycerin with her to utilize if she were to develop chest pain. The patient should follow up with Dr. Elkins as an outpatient in the next 1 to 2 weeks to ensure that everything is stable at that point. 2. Gastritis/gastroesophageal reflux disease. Continue omeprazole. 3. The patient is being discharged from the emergency room. TIME SPENT: 50 minutes were spent on the consultation of this patient of which greater than half was spent [id number] with the patient reviewing her history , performing a physical exam as well as reviewing her past records. [id number]/[facility] #: [id number] MONA
== END 2018-01-03 17:49 | disposition home or self-care (01) ==
LOC: ED 12:28
DX: R07.89 Other chest pain (principal); I20.1 Angina pectoris with documented spasm; R42 Dizziness and giddiness; M54.9 Dorsalgia, unspecified; Z88.6 Allergy status to analgesic agent; K21.9 Gastro-esophageal reflux disease without esophagitis; K44.9 Diaphragmatic hernia without obstruction or gangrene; F41.9 Anxiety disorder, unspecified
CPT/HCPCS: 36415; 71045; 71275; 74174; 80053; 83605; 84484; 84702; 85025; 85610; 85730; 93005; 99283; A9270-GY; Q9967

== ENCOUNTER → 2020-03-10 09:40 | Observation (INO) ==
[2020-03-08] MEDS: HYDROmorphone 0.5 MG/0.5 ML SYRINGE IV SLOW PU PRN ×3 (18:09→23:20)
[2020-03-08] MEDS: oxyCODONE/Acetamin 5/325 mg TAB PO PRN (19:41)
[2020-03-09] MEDS: Lactated Ringers 1000 ml BAG 1,000 ML IV SCH ×3 (00:51→23:41)
[2020-03-09] MEDS: oxyCODONE/Acetamin 5/325 mg TAB PO PRN ×5 (00:58→21:55)
[2020-03-09] MEDS: HYDROmorphone 0.5 MG/0.5 ML SYRINGE IV SLOW PU PRN ×4 (05:28→19:49)
[2020-03-09 06:05] LABS: ABS Eosinophils 0.1 10^3/ul (0-0.6); ABS Lymphocytes 2.5 10^3/ul (1.0-4.8); ABS Monocytes 0.5 10^3/ul (0-0.8); ABS Neutrophils 2.1 10^3/ul (1.5-7.7); Eosinophil % 2.3 %; Hematocrit 37 % (35-47); Hemoglobin 12.6 g/dL (12.0-16.0); Lymphocyte % 47.6 %; Mean Corpuscular HGB Conc 34 g/dL (31-36); Mean Corpuscular Hemoglobin 30 pg (27-31); Mean Corpuscular Volume 87 fL (80-97); Mean Platelet Volume 7.6 fL (7.4-10.4); Nucleated Red Blood Cells % 0.1; Platelet Count 245 10^3/uL (150-450); Red Blood Count 4.27 10^6 /uL (3.70-4.87); Red Cell Distribution Width 15 % (10-15); White Blood Count 5.2 10^3/uL (3.5-10.8)
[2020-03-09 06:23] LABS: BUN/Creatinine Ratio 8.2 (8-20); Calcium 8.7 mg/dL (8.6-10.3); EGFR African American 91.6 (>60); EGFR Non-African American 75.7 (>60); Potassium 3.9 mmol/L (3.5-5.0)
[2020-03-09] MEDS: Vancomycin 1000 MG in NS 0.9% 250 ML IVPB SCH ×3 (06:38→21:55)
[2020-03-09] MEDS: Nitroglycerin 0.1 mg/hr PATCH (2.5 mg) TRANSDERM SCH (07:49)
[2020-03-10] MEDS: oxyCODONE/Acetamin 5/325 mg TAB PO PRN ×2 (02:12→07:12)
[2020-03-10 06:21] LABS: EGFR African American 81.5 (>60); EGFR Non-African American 67.4 (>60)
[2020-03-10 06:42] LABS: Vancomycin Trough 15.8 mcg/mL
[2020-03-10] MEDS: Vancomycin 1000 MG in NS 0.9% 250 ML IVPB SCH (07:05)
[2020-03-10 08:11] VITALS: BP 120/82
[2020-03-10] MEDS: Nitroglycerin 0.1 mg/hr PATCH (2.5 mg) TRANSDERM SCH (08:29)
[~2020-03-10 09:40] MED LIST: Ondansetron 4 mg VIAL 2 MG/ML 2 ml VIAL IV PRN; Vancomycin 1,250 MG in NS 0.9% 250 ml 250 ML IVPB ONE; Vancomycin Trough Check NOTE FOLLOW UP ONE; Vancomycin per Pharmacy 1 EA NOTE FOLLOW UP SCH; oxyCODONE/Acetamin 5/325 mg TAB PO PRN
== END | disposition home or self-care (01) ==
LOC: SSU
PROVIDERS: ADMIT Surgery Surgical Critical Care; ATTEND Surgery Surgical Critical Care

== ENCOUNTER 2021-02-17 09:29 | Inpatient (IN) ==
[2021-02-17] MEDS ORDERED: Lactated Ringers 1000 ml BAG 1,000 ML IV ONE (10:09)
[2021-02-17 10:21] LABS: ABS Lymphocytes 1.6 10^3/ul (1.0-4.8); ABS Monocytes 0.3 10^3/ul (0-0.8); ABS Neutrophils 3.6 10^3/ul (1.5-7.7); Eosinophil % 0.8 %; Hematocrit 45 % (35-47); Hemoglobin 14.9 g/dL (12.0-16.0); Lymphocyte % 28.5 %; Mean Corpuscular HGB Conc 33 g/dL (31-36); Mean Corpuscular Hemoglobin 29 pg (27-31); Mean Corpuscular Volume 87 fL (80-97); Mean Platelet Volume 7.5 fL (7.4-10.4); Nucleated Red Blood Cells % 0.1; Platelet Count 329 10^3/uL (150-450); Red Blood Count 5.14 10^6 /uL (3.70-4.87); Red Cell Distribution Width 14 % (10-15); White Blood Count 5.4 10^3/uL (3.5-10.8)
[2021-02-17 10:27] LABS: INR 1.05 (0.86-1.15)
[2021-02-17 10:45] LABS: ALT 11 U/L (7-52); AST 18 U/L (13-39); Albumin 4.2 g/dL (3.2-5.2); Albumin/Globulin Ratio 1.5 (1-3); Alkaline Phosphatase 44 U/L (35-149); Anion Gap 8 mmol/L (2-11); Blood Urea Nitrogen 10 mg/dL (6-24); CO2 Carbon Dioxide 24 mmol/L (22-32); Calcium 9.4 mg/dL (8.6-10.3); Chloride 106 mmol/L (101-111); Creatine Kinase 53 U/L (10-223); EGFR African American 85.2 (>60); EGFR Non-African American 70.5 (>60); Globulin 2.8 g/dL (2-4); Glucose 100 mg/dL (70-100); Potassium 4.3 mmol/L (3.5-5.0); Sodium 138 mmol/L (135-145)
[2021-02-17 11:46] LABS: Hematocrit for Retic CNT 45 % (35-47); RBC Retic Count 5.17 10^6/uL (3.70-4.87)
[2021-02-17 11:47] LABS: Total Iron Binding Capacity 323 mcg/dL (250-450); Transferrin 231 mg/dL (203-362)
[2021-02-17] MEDS ORDERED: Iohexol 350 (CONTRAST) 500 ML MDV IV ONE (11:50)
[2021-02-17 11:56] LABS: Corrected Retic Count 0.6 % (0.5-1.5); Immature Retic Fraction 0.35
[2021-02-17 12:12] LABS: Ferritin 17.2 ng/mL (11-307)
[2021-02-17] MEDS ORDERED: Iodixanol (CONTRAST) 320 MG/ML 100 ML SDV IV ONE (12:27)
[2021-02-17] MEDS ORDERED: Lorazepam PYXIS KEY PRN (13:32)
[2021-02-17] MEDS ORDERED: LORazepam 2 mg VIAL 1 ml IV PUSH ONE (13:32)
[2021-02-17 14:29] LABS: % Iron Saturation 37 % (15-55); Iron 110 ug/dL (50-212); Total Iron Binding Capacity 298 mcg/dL (250-450); Transferrin 213 mg/dL (203-362); Unsaturated Iron Binding < 283 ug/dL
[2021-02-17] MEDS ORDERED: Heparin DRIP 25,000 UNITS BAG 25,000 UNITS/500 ML BAG IV SCH (15:30)
[2021-02-17] MEDS ORDERED: Heparin 5000 UNITS/ML 1 mL VIAL IV SCH (16:00)
[2021-02-17] MEDS ORDERED: nitroGLYCERIN DRIP 25,000 MCG/250 ML BTL IV SCH (16:00)
[2021-02-17 16:14] LABS: Cholesterol 192 mg/dL; LDL Cholesterol 98 mg/dL; Triglycerides 90 mg/dL
[2021-02-17] MEDS ORDERED: Acetaminophen IV 1 GM/100ML 100 ML IV ONE (18:42)
[2021-02-17] MEDS ORDERED: Ondansetron 4 mg VIAL 2 MG/ML 2 ml VIAL IV PRN (18:56)
[2021-02-17] MEDS ORDERED: Ondansetron 4 mg VIAL 2 MG/ML 2 ml VIAL ONE (18:57)
[2021-02-17 20:49] LABS: Urine Benzodiazepine Screen None Detected (None Detect); Urine Cannabinoids Screen Presumptive Positive (None Detect); Urine Opiates Screen Presumptive Positive (None Detect)
[2021-02-17 23:51] LABS: Myoglobin 14.2 ng/mL (14.3-65.8)
[2021-02-18] MEDS ORDERED: Acetaminophen IV 1 GM/100ML 100 ML IV PRN (02:48)
[2021-02-18] MEDS ORDERED: Acetaminophen IV 1 GM/100ML 100 ML IV ONE (02:48)
[2021-02-18 06:49] LABS: Hematocrit 38 % (35-47); Mean Corpuscular HGB Conc 34 g/dL (31-36); Mean Corpuscular Hemoglobin 29 pg (27-31); Mean Corpuscular Volume 86 fL (80-97); Mean Platelet Volume 7.3 fL (7.4-10.4); Platelet Count 281 10^3/uL (150-450); Red Blood Count 4.43 10^6 /uL (3.70-4.87); Red Cell Distribution Width 13 % (10-15); White Blood Count 5.4 10^3/uL (3.5-10.8)
[2021-02-18 07:05] LABS: Calcium 8.7 mg/dL (8.6-10.3); EGFR African American 99.1 (>60); EGFR Non-African American 81.9 (>60); Magnesium 1.8 mg/dL (1.9-2.7); Potassium 3.6 mmol/L (3.5-5.0)
[2021-02-18] MEDS ORDERED: Magnesium Sulfate 2 gm BAG 2 GM/50 ML BAG IVPB ONE (07:08)
[2021-02-18] MEDS ORDERED: Potassium Chlor 20 meq TAB.ER PO ONE (07:08)
[2021-02-18] MEDS ORDERED: Aspirin EC 81 mg TAB.EC (enteric coated) PO SCH (09:00)
[2021-02-18 09:07] VITALS: BP 136/103
== END 2021-02-18 13:40 | disposition home or self-care (01) | DRG 204 ==
LOC: ED 09:29 → ICU 09:47
PROVIDERS: ADMIT Hospitalist; ATTEND Hospitalist

== ENCOUNTER 2021-05-11 16:02 | Inpatient (IN) ==
[2021-05-11 17:58] LABS: ABS Lymphocytes 4.1 10^3/ul (1.0-4.8); ABS Monocytes 0.4 10^3/ul (0-0.8); ABS Neutrophils 4.7 10^3/ul (1.5-7.7); Eosinophil % 0.3 %; Hematocrit 36 % (35-47); Hemoglobin 12.3 g/dL (12.0-16.0); Lymphocyte % 44.4 %; Mean Corpuscular HGB Conc 34 g/dL (31-36); Mean Corpuscular Hemoglobin 31 pg (27-31); Mean Corpuscular Volume 91 fL (80-97); Mean Platelet Volume 7.1 fL (7.4-10.4); Platelet Count 311 10^3/uL (150-450); Red Cell Distribution Width 21 % (10-15); White Blood Count 9.3 10^3/uL (3.5-10.8)
[2021-05-11 18:30] LABS: Albumin 4.1 g/dL (3.2-5.2); Albumin/Globulin Ratio 1.7 (1-3); C Reactive Protein 1.27 mg/L (<8.01); Calcium 8.7 mg/dL (8.6-10.3); Globulin 2.4 g/dL (2-4); Magnesium 1.9 mg/dL (1.9-2.7); Potassium 3.6 mmol/L (3.5-5.0); Total Bilirubin 0.2 mg/dL (0.2-1.0); Total Protein 6.5 g/dL (6.4-8.9); eGFR CKD-EPI 80.1 (>60)
[2021-05-11] MEDS ORDERED: Gadoteridol (CONTRAST) 279.3 MG/ML 10 ML IV ONE (19:16)
[2021-05-11 19:45] LABS: Erythrocyte Sed Rate 5 mm/Hr (0-19)
[2021-05-11] MEDS ORDERED: Lorazepam PYXIS KEY PRN ×2 (20:58→21:37)
[2021-05-11] MEDS ORDERED: LORazepam 2 mg VIAL 1 ml IV PUSH ONE (20:58)
[2021-05-11] MEDS ORDERED: Lidocaine 1% VIAL 10 MG/ML VIAL ONE (21:20)
[2021-05-11] MEDS ORDERED: LORazepam 2 mg VIAL 1 ml ONE ×2 (21:31→21:39)
[2021-05-11] MEDS: LORazepam 2 mg VIAL 1 ml IV PUSH ONE ×2 (21:42→21:44)
[2021-05-11 22:20] LABS: Body Fluid Source Cerebral Spinal
[2021-05-11 22:36] LABS: CSF Glucose 55 mg/dL (40-70)
[2021-05-11 22:40] LABS: Body Fluid Appearance Clear
[2021-05-11 22:41] LABS: Body Fluid Color Colorless; Body Fluid WBC 0 /mcL; CSF Tube # 4
[2021-05-11 23:06] LABS: Body Fluid Mono 33 %; Body Fluid Total Cells Counted 6
[2021-05-12 00:30] LABS: Rapid COVID-19 Molecular Undetected (Undetected)
[2021-05-12 00:40] LABS: Rheumatoid Factor < 10 IU/mL (<15)
[2021-05-12 00:56] LABS: TSH Ultra Thyroid Stim Horm 5.91 mcIU/mL (0.34-5.60)
[2021-05-12 01:07] LABS: Vitamin B12 121 pg/mL (180-914)
[2021-05-12 07:09] LABS: Hematocrit 38 % (35-47); Hemoglobin 12.9 g/dL (12.0-16.0); Mean Corpuscular HGB Conc 34 g/dL (31-36); Mean Corpuscular Hemoglobin 31 pg (27-31); Mean Corpuscular Volume 91 fL (80-97); Mean Platelet Volume 7.2 fL (7.4-10.4); Platelet Count 266 10^3/uL (150-450); Red Blood Count 4.17 10^6 /uL (3.70-4.87); Red Cell Distribution Width 21 % (10-15)
[2021-05-12 07:12] LABS: INR 1.13 (0.86-1.15)
[2021-05-12 07:20] LABS: Calcium 8.7 mg/dL (8.6-10.3); Potassium 3.6 mmol/L (3.5-5.0); eGFR CKD-EPI 98.7 (>60)
[2021-05-12 08:25] LABS: ABS Eosinophils 0.1 10^3/ul (0-0.6); ABS Lymphocytes 3.9 10^3/ul (1.0-4.8); ABS Monocytes 0.3 10^3/ul (0-0.8); ABS Neutrophils 2.6 10^3/ul (1.5-7.7); Eosinophil % 1.3 %; Lymphocyte % 56.6 %; Nucleated Red Blood Cells % 0.1
[2021-05-12] MEDS ORDERED: Cyanocobalamin INJ 1,000 MCG/ML VIAL 1 ML VIAL IM SCH (09:00)
[2021-05-12] MEDS ORDERED: CIMETIDINE 200 MG PO SCH (09:00)
[2021-05-12] MEDS ORDERED: Immune Globulin IV Order (CPOE ENTRY PROTOCOL) IV SCH (10:00)
[2021-05-12] MEDS: Cyanocobalamin INJ 1,000 MCG/ML VIAL 1 ML VIAL IM SCH (10:11)
[2021-05-12] MEDS ORDERED: diPHENhydraMINE IV 50 MG/ML 1 ml VIAL (BENADRYL) IV ONE (12:28)
[2021-05-12] MEDS: Immune Glob 10%-20GM PRIVIGEN 20 GM, Immune Glob 10%-10GM PRIVIGEN 10 GM in Premix IV 0 ML IV SCH (13:48)
[2021-05-12] MEDS: Enoxaparin 40 MG/0.4 ML SYR SUBCUT SCH (19:36)
[2021-05-12 20:02] LABS: Hepatitis B Surface Antigen Nonreactive (Nonreactive)
[2021-05-12 20:07] LABS: Hepatitis A Ab IgM Negative (Negative)
[2021-05-12 20:08] LABS: Hepatitis B Core IgM Nonreactive (Nonreactive)
[2021-05-12 20:20] LABS: Hepatitis C Antibody Negative (Negative)
[2021-05-13] MEDS: Immune Glob 10%-20GM PRIVIGEN 20 GM, Immune Glob 10%-10GM PRIVIGEN 10 GM in Premix IV 0 ML IV SCH (11:35)
[2021-05-13] MEDS ORDERED: diPHENhydraMINE IV 50 MG/ML 1 ml VIAL (BENADRYL) IV ONE (11:40)
[2021-05-13] MEDS: Enoxaparin 40 MG/0.4 ML SYR SUBCUT SCH (16:49)
[2021-05-14 05:41] LABS: Hematocrit 39 % (35-47); Hemoglobin 13.1 g/dL (12.0-16.0); Mean Corpuscular HGB Conc 34 g/dL (31-36); Mean Corpuscular Hemoglobin 31 pg (27-31); Mean Corpuscular Volume 90 fL (80-97); Platelet Count 274 10^3/uL (150-450); Red Blood Count 4.28 10^6 /uL (3.70-4.87); Red Cell Distribution Width 21 % (10-15); White Blood Count 5.7 10^3/uL (3.5-10.8)
[2021-05-14 05:56] LABS: Calcium 8.9 mg/dL (8.6-10.3); eGFR CKD-EPI 80.1 (>60)
[2021-05-14] MEDS: Ondansetron 4 mg VIAL 2 MG/ML 2 ml VIAL IV PRN ×2 (08:58→20:44)
[2021-05-14] MEDS: Cyanocobalamin INJ 1,000 MCG/ML VIAL 1 ML VIAL IM SCH (10:16)
[2021-05-14] MEDS: Immune Glob 10%-20GM PRIVIGEN 20 GM, Immune Glob 10%-10GM PRIVIGEN 10 GM in Premix IV 0 ML IV SCH (10:17)
[2021-05-14] MEDS: Enoxaparin 40 MG/0.4 ML SYR SUBCUT SCH (14:43)
[2021-05-15] MEDS ORDERED: Magnesium Hydroxide LIQ 30 ML UDC PO ONE (01:53)
[2021-05-15] MEDS: Ondansetron 4 mg VIAL 2 MG/ML 2 ml VIAL IV PRN (03:59)
[2021-05-15] MEDS: Immune Glob 10%-20GM PRIVIGEN 20 GM, Immune Glob 10%-10GM PRIVIGEN 10 GM in Premix IV 0 ML IV SCH (10:36)
[2021-05-15] MEDS ORDERED: Midazolam 2 mg/2 ml VIAL 1 mg/ml 2 ml VIAL (2 mg) ONE (14:12)
[2021-05-15] MEDS ORDERED: fentaNYL 100 mcg/2 ml 50 MCG/ML VIAL ONE (14:12)
[2021-05-15] MEDS: Enoxaparin 40 MG/0.4 ML SYR SUBCUT SCH (15:46)
[2021-05-15 17:04] LABS: Intrinsic Factor Blocking AB Negative (Negative)
[2021-05-15] MEDS ORDERED: LORazepam 2 mg VIAL 1 ml IV PUSH ONE (18:14)
[2021-05-15] MEDS ORDERED: Lorazepam PYXIS KEY PRN (18:14)
[2021-05-15 18:34] LABS: JO-1 Antibody <0.2 U; RNP Antibody, IgG 0.3 U; SS-A/Ro Antibody 0.9 U; SS-B/La Antibody <0.2 U; Sm (Smith) IgG Antibody <0.2 U
[2021-05-16] MEDS: Ondansetron 4 mg VIAL 2 MG/ML 2 ml VIAL IV PRN (07:52)
[2021-05-16] MEDS ORDERED: Magnesium Sulfate 2 gm BAG 2 GM/50 ML BAG IVPB ONE (08:56)
[2021-05-16] MEDS ORDERED: methylPREDNISolone 125 mg 2 ML VIAL IV ONE (08:56)
[2021-05-16] MEDS ORDERED: diPHENhydraMINE IV 50 MG/ML 1 ml VIAL (BENADRYL) IV ONE (08:57)
[2021-05-16] MEDS ORDERED: Cyanocobalamin INJ 1,000 MCG/ML VIAL 1 ML VIAL IM SCH (09:00)
[2021-05-16 09:21] VITALS: BP 129/86
[2021-05-16 09:32] LABS: Hematocrit 36 % (35-47); Mean Corpuscular HGB Conc 34 g/dL (31-36); Mean Corpuscular Hemoglobin 31 pg (27-31); Mean Corpuscular Volume 92 fL (80-97); Mean Platelet Volume 7.2 fL (7.4-10.4); Platelet Count 240 10^3/uL (150-450); Red Blood Count 3.89 10^6 /uL (3.70-4.87); Red Cell Distribution Width 21 % (10-15); White Blood Count 7.2 10^3/uL (3.5-10.8)
[2021-05-16 09:51] LABS: Calcium 8.6 mg/dL (8.6-10.3); eGFR CKD-EPI 84.4 (>60)
[2021-05-16] MEDS ORDERED: Morphine 2 MG/ML SYRINGE IV ONE (10:13)
[2021-05-16 11:20] LABS: Albumin 3.1 g/dL (3.4-4.7); Albumin/Globulin Ratio 1.32; Gamma Globulin 0.9 g/dL (0.6-1.6); Total Protein(PEP) 5.5 g/dL (6.3 - 7.9)
[2021-05-16 14:26] LABS: CSF Oligoclonal Bands 0 bands; Oligoclonal Proteins Interpret 0 bands (<2); Serum Oligoclonal Bands 0 bands
[2021-05-16 16:24] LABS: Tissue Transglutaminase IgA Ab <1.2 U/mL
[2021-05-16] MEDS: Enoxaparin 40 MG/0.4 ML SYR SUBCUT SCH (17:04)
[2021-05-16 20:52] LABS: Parietal Cell Ab IgG 10.1 U
[2021-05-16 22:02] LABS: Anaplasma phagocytophilum Negative (Negative); B. miyamotoi PCR, B Negative (Negative); Babesia divergens/MO-1 Negative (Negative); Babesia ducani Negative (Negative); Ehrlichia chaffeensis Negative (Negative); Ehrlichia ewingii/canis Negative (Negative); Ehrlichia muris eauclairensis Negative (Negative)
[2021-05-16 22:18] LABS: Immunoglobulin A 124 mg/dL (61 - 356)
[2021-05-17 10:48] LABS: Cryoglobulin Negative %ppt (Negative)
[2021-05-19 12:58] LABS: Albumin 1.9 mg/dL; Albumin/Globulin Ratio 0.45; Gamma Globulin 1.7 mg/dL; Protein,Total, Random Urine 6 mg/dL
== END 2021-05-16 16:50 | disposition home or self-care (01) | DRG 49 ==
LOC: ED 16:02 → EDHOLD 16:02 → MEDTELE 16:02 → SUATTDRO 05-12 15:00 → MEDTELE 05-13 01:38
PROVIDERS: ADMIT Student in an Organized Health Care Education/Training Program; ATTEND Internal Medicine

== ENCOUNTER 2021-11-10 06:59 | Inpatient (IN) ==
[~2021-11-10 06:59] MED LIST changes: +Buffered Lidocaine 1% SYRIN 1 ml INTRADERM ONE; +Dexamethasone IV 4 MG/ML VIAL 1 ml VIAL IV SLOW PU ONE; +Famotidine IV 10 MG/ML 2 ml VIAL (20 mg) IV ONE; +Lactated Ringers 1000 ml BAG 1,000 ML IV SCH; -Ondansetron 4 mg VIAL 2 MG/ML 2 ml VIAL IV PRN; -Vancomycin 1,250 MG in NS 0.9% 250 ml 250 ML IVPB ONE; -Vancomycin Trough Check NOTE FOLLOW UP ONE; -Vancomycin per Pharmacy 1 EA NOTE FOLLOW UP SCH; -oxyCODONE/Acetamin 5/325 mg TAB PO PRN
[2021-11-10] MEDS ORDERED: Famotidine IV 10 MG/ML 2 ml VIAL (20 mg) ONE (07:12)
[2021-11-10] MEDS ORDERED: ceFAZolin 2 GM in NS PREMIX 2 GM/100 ML BAG IVPB ONE (07:12)
[2021-11-10] MEDS ORDERED: Ondansetron ODT 4 mg TAB 4 MG TAB ONE (07:12)
[2021-11-10] MEDS ORDERED: Scopolamine 1 mg/72hr PATCH ONE (07:12)
[2021-11-10] MEDS ORDERED: Rocuronium 50 mg VIAL 10 mg/ml 5 ml VIAL (50 mg) ONE ×3 (07:32→10:18)
[2021-11-10] MEDS ORDERED: fentaNYL 100 mcg/2 ml 50 MCG/ML VIAL ONE ×2 (07:32→11:38)
[2021-11-10] MEDS ORDERED: Propofol 10 MG/ML 20 ML BTL ONE ×2 (07:32→09:46)
[2021-11-10] MEDS ORDERED: Midazolam 2 mg/2 ml VIAL 1 mg/ml 2 ml VIAL (2 mg) ONE (07:33)
[2021-11-10] MEDS ORDERED: Heparin 5000 UNITS/ML 1 mL VIAL ONE (07:44)
[2021-11-10] MEDS ORDERED: Bupivacaine 0.5% W/EPI SDV 10 ML VIAL INJ ONE (07:44)
[2021-11-10] MEDS ORDERED: Lidocaine 2% PF 10 ML AMP ONE (07:48)
[2021-11-10] MEDS ORDERED: Bupivacaine 0.25% SDV PF 10 ML VIAL INJ ONE (08:18)
[2021-11-10] MEDS ORDERED: Naloxone 0.4 mg VIAL 0.4 mg/ml 1 ml VIAL IV PRN (08:26)
[2021-11-10] MEDS ORDERED: Prochlorperazine 5 mg/ml 2 ml VIAL (10 mg) IV PRN (08:26)
[2021-11-10] MEDS ORDERED: HYDROmorphone 0.5 MG/0.5 ML SYRINGE ONE ×2 (09:18→10:33)
[2021-11-10] MEDS: HYDROmorphone 1 MG/1 ML SYRINGE IV PRN ×5 (11:20→11:40)
[2021-11-10] MEDS ORDERED: fentaNYL 250 mcg/5 ml 50 MCG/ML 5 ml VIAL (250 MCG) ONE (11:23)
[2021-11-10] MEDS ORDERED: HYDROmorphone 1 MG/1 ML SYRINGE ONE (11:26)
[2021-11-10] MEDS ORDERED: oxyCODONE/Acetamin 5/325 mg TAB ONE (11:38)
[2021-11-10] MEDS ORDERED: Nitroglycerin 0.3 mg TAB SL PRN (11:43)
[2021-11-10] MEDS: oxyCODONE/Acetamin 5/325 mg TAB PO PRN ×4 (11:44→19:38)
[2021-11-10] MEDS ORDERED: Morphine 4 MG/ML VIAL (1 ml) ONE (12:25)
[2021-11-10] MEDS: Morphine 10 MG/ML VIAL (1 ml) IV PRN ×5 (12:28→12:50)
[2021-11-10] MEDS: Nitroglycerin 0.1 mg/hr PATCH (2.5 mg) TRANSDERM SCH (14:52)
[2021-11-10] MEDS ORDERED: oxyCODONE/Acetamin 5/325 mg TAB PO PRN (15:41)
[2021-11-10] MEDS: HYDROmorphone 1 MG/1 ML SYRINGE IV SLOW PU PRN ×2 (16:05→21:37)
[2021-11-10] MEDS ORDERED: Polyethylene Glycol 3350 17 GM PACKET PO PRN (16:56)
[2021-11-10] MEDS ORDERED: Senna TAB 8.6 mg TAB PO SCH (17:00)
[2021-11-10] MEDS: Senna TAB 8.6 mg TAB PO SCH (21:38)
[2021-11-11] MEDS: HYDROmorphone 1 MG/1 ML SYRINGE IV SLOW PU PRN ×5 (04:04→20:57)
[2021-11-11] MEDS: Nitroglycerin 0.1 mg/hr PATCH (2.5 mg) TRANSDERM SCH (08:13)
[2021-11-11] MEDS ORDERED: Nitroglycerin 0.1 mg/hr PATCH (2.5 mg) TRANSDERM SCH (09:00)
[2021-11-11] MEDS: oxyCODONE/Acetamin 5/325 mg TAB PO PRN ×2 (09:35→23:12)
[2021-11-11] MEDS: Buprenorp/Nalox 8-2 MG FILM SL FILM SCH ×2 (10:05→20:54)
[2021-11-11] MEDS: Senna TAB 8.6 mg TAB PO SCH (20:55)
[2021-11-12] MEDS: HYDROmorphone 1 MG/1 ML SYRINGE IV SLOW PU PRN ×2 (01:18→07:30)
[2021-11-12 07:43] VITALS: BP 125/84
[2021-11-12] MEDS: Nitroglycerin 0.1 mg/hr PATCH (2.5 mg) TRANSDERM SCH (08:37)
[2021-11-12] MEDS: Buprenorp/Nalox 8-2 MG FILM SL FILM SCH (08:40)
[2021-11-12] MEDS: oxyCODONE/Acetamin 5/325 mg TAB PO PRN (11:12)
== END 2021-11-12 12:05 | disposition home or self-care (01) | DRG 513 ==
LOC: AA 06:59 → SSU 13:31
PROVIDERS: ADMIT Obstetrics & Gynecology; ATTEND Obstetrics & Gynecology

== ENCOUNTER 2022-06-25 12:43 | Inpatient (IN) ==
[2022-06-25] MEDS ORDERED: Acetaminophen IV 1 GM/100ML 1,000 MG/100 ML BAG IV ONE (13:16)
[2022-06-25 14:02] LABS: ABS Lymphocytes 1.3 10^3/ul (1.0-4.8); ABS Monocytes 0.8 10^3/ul (0-0.8); ABS Neutrophils 10.8 10^3/ul (1.5-7.7); Eosinophil % 0.3 %; Hematocrit 39 % (35-47); Lymphocyte % 9.9 %; Mean Corpuscular HGB Conc 33 g/dL (31-36); Mean Corpuscular Hemoglobin 28 pg (27-31); Mean Corpuscular Volume 85 fL (80-97); Platelet Count 323 10^3/uL (150-450); Red Blood Count 4.65 10^6 /uL (3.70-4.87); Red Cell Distribution Width 13 % (10-15); White Blood Count 12.9 10^3/uL (3.5-10.8)
[2022-06-25 14:48] LABS: Albumin 3.4 g/dL (3.2-5.2); Albumin/Globulin Ratio 1.3 (1-3); C Reactive Protein 216.58 mg/L (<8.01); Calcium 8.7 mg/dL (8.6-10.3); Creatinine, Serum 0.65 mg/dL (0.51-0.95); Globulin 2.6 g/dL (2-4); Potassium 3.6 mmol/L (3.5-5.0); Total Bilirubin 0.4 mg/dL (0.2-1.0); eGFR CKD-EPI 115.5 (>60)
[2022-06-25] MEDS ORDERED: Iohexol 350 (CONTRAST) 500 ML MDV IV ONE (15:11)
[2022-06-25] MEDS ORDERED: Lorazepam PYXIS KEY PRN (16:03)
[2022-06-25] MEDS ORDERED: LORazepam 2 mg VIAL 1 ml IV PUSH ONE (16:03)
[2022-06-25 17:13] LABS: Erythrocyte Sed Rate 45 mm/Hr (0-19)
[2022-06-25] MEDS ORDERED: HYDROmorphone 0.5 MG/0.5 ML SYRINGE IV ONE (17:35)
[2022-06-25] MEDS ORDERED: Polyethylene Glycol 3350 17 GM PACKET PO PRN (18:39)
[2022-06-25] MEDS: Senna TAB 8.6 mg TAB PO SCH (22:10)
[2022-06-25] MEDS: Buprenorp/Nalox 8-2 MG FILM SL SCH (22:11)
[2022-06-26] MEDS ORDERED: Vancomycin 1,500 MG in NS 0.9% 250 ml 250 ML IVPB ONE (00:13)
[2022-06-26] MEDS ORDERED: cefTRIAXone 2 gm/50 mL D5W 2 GM/50 ML BAG IV SCH (00:15)
[2022-06-26] MEDS ORDERED: HYDROmorphone 1 MG/1 ML SYRINGE IV SLOW PU ONE ×2 (00:15→02:33)
[2022-06-26] MEDS ORDERED: Vancomycin per Pharmacy 1 EA NOTE FOLLOW UP PRN (00:23)
[2022-06-26] MEDS: Lactated Ringers 1000 ml BAG 1,000 ML IV SCH ×2 (00:50→08:13)
[2022-06-26] MEDS ORDERED: Cefepime 2 GM in Dextrose 2 GM/50 ML BAG IV SCH (01:00)
[2022-06-26 01:32] LABS: Calcium 8.6 mg/dL (8.6-10.3); Creatinine, Serum 0.74 mg/dL (0.51-0.95); Potassium 4.2 mmol/L (3.5-5.0); eGFR CKD-EPI 106.1 (>60)
[2022-06-26] MEDS: Cefepime 2 GM in Dextrose 2 GM/50 ML BAG IV SCH ×2 (02:56→08:39)
[2022-06-26 06:09] LABS: ABS Lymphocytes 1.3 10^3/ul (1.0-4.8); ABS Monocytes 0.9 10^3/ul (0-0.8); ABS Neutrophils 11.1 10^3/ul (1.5-7.7); Hematocrit 40 % (35-47); Hemoglobin 13.3 g/dL (12.0-16.0); Lymphocyte % 9.8 %; Mean Corpuscular HGB Conc 33 g/dL (31-36); Mean Corpuscular Hemoglobin 29 pg (27-31); Mean Corpuscular Volume 86 fL (80-97); Mean Platelet Volume 7.3 fL (7.4-10.4); Nucleated Red Blood Cells % 0.1; Platelet Count 297 10^3/uL (150-450); Red Blood Count 4.64 10^6 /uL (3.70-4.87); Red Cell Distribution Width 13 % (10-15); White Blood Count 13.4 10^3/uL (3.5-10.8)
[2022-06-26 06:25] LABS: Calcium 8.7 mg/dL (8.6-10.3); Creatinine, Serum 0.72 mg/dL (0.51-0.95); Potassium 4.4 mmol/L (3.5-5.0); eGFR CKD-EPI 109.7 (>60)
[2022-06-26] MEDS ORDERED: Buprenorp/Nalox 8-2 MG FILM SL SCH (09:00)
[2022-06-26] MEDS ORDERED: Lidocaine PATCH 5% PATCH TRANSDERM SCH (09:00)
[2022-06-26] MEDS: Nitroglycerin 0.1 mg/hr PATCH (2.5 mg) TRANSDERM SCH (09:02)
[2022-06-26] MEDS: Buprenorp/Nalox 8-2 MG FILM SL SCH ×2 (09:02→20:02)
[2022-06-26] MEDS: Acetaminophen IV 1 GM/100ML 1,000 MG/100 ML BAG IV PRN ×2 (10:24→20:44)
[2022-06-26] MEDS: Vancomycin 1000 MG in NS 0.9% 250 ML IVPB SCH ×2 (12:09→18:15)
[2022-06-26 12:10] LABS: Urine Appearance Cloudy; Urine Bilirubin Negative (Negative); Urine Blood Negative (Negative); Urine Color Yellow; Urine Glucose Negative (Negative); Urine Ketones Negative (Negative); Urine Nitrite Negative (Negative); Urine Protein 2+(100 mg/dL) (Negative); Urine Specific Gravity 1.029 (1.002-1.030); Urine Urobilinogen Negative (Negative)
[2022-06-26 12:19] LABS: Urine Bacteria 1+ (Absent); Urine Red Blood Cell 3+(>10/hpf) (Absent); Urine Squamous Epithelial Cell Present (Absent); Urine White Blood Cell Trace(0-5/hpf) (Absent)
[2022-06-26] MEDS ORDERED: Gadoteridol (CONTRAST) 279.3 MG/ML 10 ML IV ONE (15:19)
[2022-06-26] MEDS ORDERED: Naloxone 0.4 mg VIAL 0.4 mg/ml 1 ml VIAL IV PUSH PRN (15:25)
[2022-06-26] MEDS: Lidocaine PATCH 5% PATCH TRANSDERM SCH (15:50)
[2022-06-26] MEDS: Enoxaparin 40 MG/0.4 ML SYR SUBCUT SCH (20:18)
[2022-06-26] MEDS: Morphine 10 MG/ML VIAL (1 ml) IV PRN (20:18)
[2022-06-26] MEDS: Senna TAB 8.6 mg TAB PO SCH (20:19)
[2022-06-27] MEDS: Vancomycin 1000 MG in NS 0.9% 250 ML IVPB SCH ×2 (00:33→09:52)
[2022-06-27] MEDS: Morphine 10 MG/ML VIAL (1 ml) IV PRN ×4 (01:37→21:03)
[2022-06-27] MEDS ORDERED: Vancomycin Trough Check NOTE FOLLOW UP ONE (08:30)
[2022-06-27 08:44] LABS: Hematocrit 37 % (35-47); Hemoglobin 11.9 g/dL (12.0-16.0); Mean Corpuscular HGB Conc 33 g/dL (31-36); Mean Corpuscular Hemoglobin 28 pg (27-31); Mean Corpuscular Volume 86 fL (80-97); Mean Platelet Volume 7.1 fL (7.4-10.4); Platelet Count 307 10^3/uL (150-450); Red Blood Count 4.27 10^6 /uL (3.70-4.87); Red Cell Distribution Width 13 % (10-15); White Blood Count 10.8 10^3/uL (3.5-10.8)
[2022-06-27] MEDS: Buprenorp/Nalox 8-2 MG FILM SL SCH ×3 (08:53→21:05)
[2022-06-27] MEDS: Lidocaine PATCH 5% PATCH TRANSDERM SCH (08:54)
[2022-06-27] MEDS: Acetaminophen IV 1 GM/100ML 1,000 MG/100 ML BAG IV PRN (08:56)
[2022-06-27 09:20] LABS: Albumin 2.9 g/dL (3.2-5.2); Albumin/Globulin Ratio 1.1 (1-3); Calcium 8.1 mg/dL (8.6-10.3); Creatinine, Serum 0.7 mg/dL (0.51-0.95); Creatinine, Serum 0.71 mg/dL (0.51-0.95); Globulin 2.6 g/dL (2-4); Magnesium 1.9 mg/dL (1.9-2.7); Potassium 3.6 mmol/L (3.5-5.0); Total Bilirubin 0.3 mg/dL (0.2-1.0); Total Protein 5.5 g/dL (6.4-8.9); Vancomycin Trough 12.4 mcg/mL; eGFR CKD-EPI 111.5 (>60); eGFR CKD-EPI 113.5 (>60)
[2022-06-27] MEDS: Nitroglycerin 0.1 mg/hr PATCH (2.5 mg) TRANSDERM SCH (09:52)
[2022-06-27] MEDS: Vancomycin 1,250 MG in NS 0.9% 250 ml 250 ML IVPB SCH (18:19)
[2022-06-27] MEDS: Enoxaparin 40 MG/0.4 ML SYR SUBCUT SCH (21:04)
[2022-06-27] MEDS: Senna TAB 8.6 mg TAB PO SCH (21:06)
[2022-06-28] MEDS: Acetaminophen IV 1 GM/100ML 1,000 MG/100 ML BAG IV PRN ×3 (00:44→18:10)
[2022-06-28] MEDS: Vancomycin 1,250 MG in NS 0.9% 250 ml 250 ML IVPB SCH ×3 (01:30→20:35)
[2022-06-28] MEDS: Morphine 10 MG/ML VIAL (1 ml) IV PRN ×4 (03:19→19:48)
[2022-06-28 06:31] LABS: ABS Basophils 0.1 10^3/ul (0-0.2); ABS Eosinophils 0.1 10^3/ul (0-0.6); ABS Lymphocytes 2.2 10^3/ul (1.0-4.8); ABS Monocytes 0.8 10^3/ul (0-0.8); Eosinophil % 0.6 %; Hematocrit 32 % (35-47); Hemoglobin 10.8 g/dL (12.0-16.0); Lymphocyte % 23.9 %; Mean Corpuscular HGB Conc 33 g/dL (31-36); Mean Corpuscular Hemoglobin 29 pg (27-31); Mean Corpuscular Volume 85 fL (80-97); Mean Platelet Volume 7.6 fL (7.4-10.4); Platelet Count 297 10^3/uL (150-450); Red Cell Distribution Width 13 % (10-15); White Blood Count 9.1 10^3/uL (3.5-10.8)
[2022-06-28 06:54] LABS: Calcium 7.9 mg/dL (8.6-10.3); Creatinine, Serum 0.62 mg/dL (0.51-0.95); Potassium 3.9 mmol/L (3.5-5.0); eGFR CKD-EPI 116.8 (>60)
[2022-06-28] MEDS ORDERED: NS 0.9% 1000 ml BAG 1,000 ML IV SCH (09:00)
[2022-06-28] MEDS: Lidocaine PATCH 5% PATCH TRANSDERM SCH (09:24)
[2022-06-28] MEDS: Buprenorp/Nalox 8-2 MG FILM SL SCH ×3 (09:26→20:40)
[2022-06-28] MEDS: Nitroglycerin 0.1 mg/hr PATCH (2.5 mg) TRANSDERM SCH (11:33)
[2022-06-28] MEDS: Enoxaparin 40 MG/0.4 ML SYR SUBCUT SCH (20:42)
[2022-06-28] MEDS: Senna TAB 8.6 mg TAB PO SCH (20:49)
[2022-06-29] MEDS: Morphine 10 MG/ML VIAL (1 ml) IV PRN ×2 (01:55→08:16)
[2022-06-29] MEDS: Vancomycin 1,250 MG in NS 0.9% 250 ml 250 ML IVPB SCH ×3 (02:05→18:32)
[2022-06-29] MEDS: Acetaminophen IV 1 GM/100ML 1,000 MG/100 ML BAG IV PRN ×2 (04:20→12:50)
[2022-06-29 05:53] LABS: ABS Basophils 0.1 10^3/ul (0-0.2); ABS Eosinophils 0.1 10^3/ul (0-0.6); ABS Lymphocytes 2.3 10^3/ul (1.0-4.8); ABS Monocytes 0.7 10^3/ul (0-0.8); Eosinophil % 0.6 %; Hematocrit 30 % (35-47); Lymphocyte % 25.5 %; Mean Corpuscular HGB Conc 33 g/dL (31-36); Mean Corpuscular Hemoglobin 28 pg (27-31); Mean Corpuscular Volume 84 fL (80-97); Mean Platelet Volume 7.3 fL (7.4-10.4); Platelet Count 307 10^3/uL (150-450); Red Blood Count 3.63 10^6 /uL (3.70-4.87); Red Cell Distribution Width 13 % (10-15); White Blood Count 9.1 10^3/uL (3.5-10.8)
[2022-06-29 06:32] LABS: Calcium 8.2 mg/dL (8.6-10.3); Creatinine, Serum 0.57 mg/dL (0.51-0.95); Potassium 3.7 mmol/L (3.5-5.0); eGFR CKD-EPI 119.2 (>60)
[2022-06-29] MEDS ORDERED: Iodixanol (CONTRAST) 320 MG/ML 100 ML SDV IV ONE (07:22)
[2022-06-29] MEDS: Nitroglycerin 0.1 mg/hr PATCH (2.5 mg) TRANSDERM SCH (08:17)
[2022-06-29] MEDS: Buprenorp/Nalox 8-2 MG FILM SL SCH ×4 (08:17→22:00)
[2022-06-29] MEDS: Lidocaine PATCH 5% PATCH TRANSDERM SCH (08:18)
[2022-06-29] MEDS ORDERED: Vancomycin Trough Check NOTE FOLLOW UP ONE (09:30)
[2022-06-29 10:24] LABS: Creatinine, Serum 0.64 mg/dL (0.51-0.95); Vancomycin Trough 16.1 mcg/mL; eGFR CKD-EPI 115.9 (>60)
[2022-06-29] MEDS: Enoxaparin 40 MG/0.4 ML SYR SUBCUT SCH (22:00)
[2022-06-29] MEDS: Senna TAB 8.6 mg TAB PO SCH (22:01)
[2022-06-30] MEDS: Vancomycin 1,250 MG in NS 0.9% 250 ml 250 ML IVPB SCH ×3 (02:42→18:16)
[2022-06-30 06:13] LABS: Hematocrit 31 % (35-47); Hemoglobin 10.3 g/dL (12.0-16.0); Mean Corpuscular HGB Conc 33 g/dL (31-36); Mean Corpuscular Hemoglobin 28 pg (27-31); Mean Corpuscular Volume 84 fL (80-97); Mean Platelet Volume 7.1 fL (7.4-10.4); Platelet Count 351 10^3/uL (150-450); Red Blood Count 3.73 10^6 /uL (3.70-4.87); Red Cell Distribution Width 13 % (10-15); White Blood Count 8.5 10^3/uL (3.5-10.8)
[2022-06-30 06:32] LABS: Albumin 2.8 g/dL (3.2-5.2); Albumin/Globulin Ratio 1.2 (1-3); Calcium 8.1 mg/dL (8.6-10.3); Creatinine, Serum 0.6 mg/dL (0.51-0.95); Globulin 2.4 g/dL (2-4); Potassium 3.9 mmol/L (3.5-5.0); Total Bilirubin 0.2 mg/dL (0.2-1.0); Total Protein 5.2 g/dL (6.4-8.9); eGFR CKD-EPI 117.8 (>60)
[2022-06-30 08:25] LABS: C Reactive Protein 197.1 mg/L (<8.01)
[2022-06-30] MEDS: Nitroglycerin 0.1 mg/hr PATCH (2.5 mg) TRANSDERM SCH (09:20)
[2022-06-30] MEDS: Lidocaine PATCH 5% PATCH TRANSDERM SCH (09:21)
[2022-06-30] MEDS: Buprenorp/Nalox 8-2 MG FILM SL SCH ×3 (09:21→22:15)
[2022-06-30] MEDS: oxyCODONE SR 10 mg TAB PO SCH ×2 (12:23→22:16)
[2022-06-30] MEDS: Senna TAB 8.6 mg TAB PO SCH (22:14)
[2022-06-30] MEDS: Enoxaparin 40 MG/0.4 ML SYR SUBCUT SCH (22:19)
[2022-07-01] MEDS: Vancomycin 1,250 MG in NS 0.9% 250 ml 250 ML IVPB SCH ×3 (02:22→17:34)
[2022-07-01] MEDS: Buprenorp/Nalox 8-2 MG FILM SL SCH ×3 (09:17→20:43)
[2022-07-01] MEDS: Nitroglycerin 0.1 mg/hr PATCH (2.5 mg) TRANSDERM SCH (09:18)
[2022-07-01] MEDS: Lidocaine PATCH 5% PATCH TRANSDERM SCH (09:18)
[2022-07-01] MEDS: oxyCODONE SR 10 mg TAB PO SCH ×2 (09:19→19:51)
[2022-07-01] MEDS ORDERED: Sulfamethox/Trimethoprim DS TAB 800/160 mg PO SCH (12:00)
[2022-07-01] MEDS: HYDROmorphone 0.5 MG/0.5 ML SYRINGE IV SLOW PU PRN ×2 (13:08→17:34)
[2022-07-01] MEDS ORDERED: NS 0.9% 1000 ml BAG 1,000 ML IV SCH (15:45)
[2022-07-01] MEDS: Enoxaparin 40 MG/0.4 ML SYR SUBCUT SCH (20:38)
[2022-07-01] MEDS: Senna TAB 8.6 mg TAB PO SCH (20:39)
[2022-07-02] MEDS: Vancomycin 1,250 MG in NS 0.9% 250 ml 250 ML IVPB SCH ×3 (02:06→18:17)
[2022-07-02] MEDS: HYDROmorphone 0.5 MG/0.5 ML SYRINGE IV SLOW PU PRN ×2 (06:06→11:57)
[2022-07-02 07:30] LABS: Albumin 2.9 g/dL (3.2-5.2); C Reactive Protein 102.09 mg/L (<8.01); Calcium 8.5 mg/dL (8.6-10.3); Creatinine, Serum 0.67 mg/dL (0.51-0.95); Globulin 2.8 g/dL (2-4); Potassium 4.3 mmol/L (3.5-5.0); Total Bilirubin 0.2 mg/dL (0.2-1.0); Total Protein 5.7 g/dL (6.4-8.9); eGFR CKD-EPI 114.7 (>60)
[2022-07-02] MEDS: Lidocaine PATCH 5% PATCH TRANSDERM SCH (09:27)
[2022-07-02] MEDS: Nitroglycerin 0.1 mg/hr PATCH (2.5 mg) TRANSDERM SCH (09:28)
[2022-07-02] MEDS: oxyCODONE SR 10 mg TAB PO SCH ×2 (09:29→21:20)
[2022-07-02] MEDS: Buprenorp/Nalox 8-2 MG FILM SL SCH ×3 (09:30→21:27)
[2022-07-02] MEDS ORDERED: Lidocaine 1% MPF 5 ML VIAL INJ ONE (10:54)
[2022-07-02] MEDS ORDERED: Gadoteridol (CONTRAST) 279.3 MG/ML 10 ML IV ONE (12:59)
[2022-07-02] MEDS: Senna TAB 8.6 mg TAB PO SCH (21:24)
[2022-07-02] MEDS: Enoxaparin 40 MG/0.4 ML SYR SUBCUT SCH (21:26)
[2022-07-03] MEDS: Vancomycin 1,250 MG in NS 0.9% 250 ml 250 ML IVPB SCH ×2 (01:32→12:55)
[2022-07-03 07:37] LABS: ABS Basophils 0.1 10^3/ul (0-0.2); ABS Eosinophils 0.2 10^3/ul (0-0.6); ABS Lymphocytes 2.5 10^3/ul (1.0-4.8); ABS Monocytes 0.6 10^3/ul (0-0.8); ABS Neutrophils 3.9 10^3/ul (1.5-7.7); Eosinophil % 2.2 %; Hematocrit 30 % (35-47); Hemoglobin 10.1 g/dL (12.0-16.0); Lymphocyte % 35.2 %; Mean Corpuscular HGB Conc 33 g/dL (31-36); Mean Corpuscular Hemoglobin 28 pg (27-31); Mean Corpuscular Volume 84 fL (80-97); Mean Platelet Volume 6.6 fL (7.4-10.4); Platelet Count 448 10^3/uL (150-450); Red Cell Distribution Width 13 % (10-15); White Blood Count 7.2 10^3/uL (3.5-10.8)
[2022-07-03] MEDS: oxyCODONE SR 10 mg TAB PO SCH ×2 (08:11→21:55)
[2022-07-03 08:15] LABS: Albumin 2.7 g/dL (3.2-5.2); Albumin/Globulin Ratio 1.1 (1-3); Calcium 8.1 mg/dL (8.6-10.3); Creatinine, Serum 0.7 mg/dL (0.51-0.95); Globulin 2.5 g/dL (2-4); Total Bilirubin 0.2 mg/dL (0.2-1.0); Total Protein 5.2 g/dL (6.4-8.9); eGFR CKD-EPI 113.5 (>60)
[2022-07-03] MEDS: Lidocaine PATCH 5% PATCH TRANSDERM SCH (08:15)
[2022-07-03] MEDS: Nitroglycerin 0.1 mg/hr PATCH (2.5 mg) TRANSDERM SCH (08:15)
[2022-07-03] MEDS: Buprenorp/Nalox 8-2 MG FILM SL SCH ×3 (08:27→21:54)
[2022-07-03] MEDS ORDERED: Lorazepam PYXIS KEY PRN (09:03)
[2022-07-03] MEDS ORDERED: LORazepam 2 mg VIAL 1 ml IV PUSH ONE (09:03)
[2022-07-03] MEDS ORDERED: Vancomycin Trough Check NOTE FOLLOW UP ONE (09:30)
[2022-07-03] MEDS: HYDROmorphone 0.5 MG/0.5 ML SYRINGE IV SLOW PU PRN ×2 (11:12→16:06)
[2022-07-03 11:52] LABS: Creatinine, Serum 0.75 mg/dL (0.51-0.95); Vancomycin Trough 24.7 mcg/mL; eGFR CKD-EPI 104.4 (>60)
[2022-07-03] MEDS ORDERED: Vancomycin 1000 MG in NS 0.9% 250 ML IVPB SCH (15:00)
[2022-07-03] MEDS: Senna TAB 8.6 mg TAB PO SCH (20:34)
[2022-07-03] MEDS: Enoxaparin 40 MG/0.4 ML SYR SUBCUT SCH (20:35)
[2022-07-04] MEDS: HYDROmorphone 0.5 MG/0.5 ML SYRINGE IV SLOW PU PRN (00:24)
[2022-07-04] MEDS: Vancomycin 1000 MG in NS 0.9% 250 ML IVPB SCH ×3 (02:23→19:39)
[2022-07-04] MEDS: Lidocaine PATCH 5% PATCH TRANSDERM SCH (09:25)
[2022-07-04] MEDS: oxyCODONE SR 10 mg TAB PO SCH (09:27)
[2022-07-04] MEDS: Nitroglycerin 0.1 mg/hr PATCH (2.5 mg) TRANSDERM SCH (09:28)
[2022-07-04] MEDS: Buprenorp/Nalox 8-2 MG FILM SL SCH ×3 (09:28→20:38)
[2022-07-04] MEDS ORDERED: Vancomycin Trough Check NOTE FOLLOW UP ONE (17:30)
[2022-07-04 18:35] LABS: Creatinine, Serum 0.79 mg/dL (0.51-0.95); Vancomycin Trough 18.1 mcg/mL; eGFR CKD-EPI 98.1 (>60)
[2022-07-04] MEDS: Senna TAB 8.6 mg TAB PO SCH (20:36)
[2022-07-04] MEDS: Enoxaparin 40 MG/0.4 ML SYR SUBCUT SCH (20:37)
[2022-07-05] MEDS: Vancomycin 1000 MG in NS 0.9% 250 ML IVPB SCH ×3 (02:22→22:22)
[2022-07-05] MEDS: Lidocaine PATCH 5% PATCH TRANSDERM SCH (08:42)
[2022-07-05] MEDS: Buprenorp/Nalox 8-2 MG FILM SL SCH ×3 (09:31→21:29)
[2022-07-05] MEDS: Nitroglycerin 0.1 mg/hr PATCH (2.5 mg) TRANSDERM SCH (11:09)
[2022-07-05] MEDS: Senna TAB 8.6 mg TAB PO SCH (21:29)
[2022-07-05] MEDS: Enoxaparin 40 MG/0.4 ML SYR SUBCUT SCH (21:30)
[2022-07-06] MEDS: Vancomycin 1000 MG in NS 0.9% 250 ML IVPB SCH ×2 (06:08→14:07)
[2022-07-06] MEDS: Nitroglycerin 0.1 mg/hr PATCH (2.5 mg) TRANSDERM SCH (09:15)
[2022-07-06] MEDS: Lidocaine PATCH 5% PATCH TRANSDERM SCH (09:16)
[2022-07-06] MEDS: Buprenorp/Nalox 8-2 MG FILM SL SCH ×2 (09:16→14:07)
[2022-07-06 11:13] VITALS: BP 115/67
[2022-07-07] MEDS ORDERED: Vancomycin Trough Check NOTE FOLLOW UP ONE (05:30)
== END 2022-07-06 17:20 | DRG 720 ==
LOC: ED 12:43 → EDHOLD 12:43 → SUATTDRO 17:21 → MEDTELE 20:20 → SUATTDRO 06-26 10:57
PROVIDERS: ADMIT Internal Medicine; ATTEND Hospitalist